=== PATIENT | female | born 1930 | race Caucasian/White ===

== ENCOUNTER 2017-04-17 08:51 | Inpatient (IN) | payer MEDICARE, BC ==
--- NOTE | 2017-04-17 08:58 | EDM.PDOC ---
ED HPI GENERAL MEDICAL PROBLEM - General Chief Complaint: General Stated Complaint: [facility] Time Seen by Provider: 04/17/17 08:54 - History of Present Illness INITIAL COMMENTS - FREE TEXT/NARRATIVE: 87-year-old female brought in to the emergency room with increased weakness. She was transported by EMS from the [facility]. Apparently over the last several weeks the patient's have problems with increased weakness. Was noted patient was treated for cough with Tessalon Perles and doxycycline on the of last month she was given a 10 day course of doxycycline she still has 9 capsules remaining. The patient cannot recall if she's had a chest x-ray done earlier today and she just got back from radiology. Patient denies any specific pain. She says she tries to take her medication as directed. Patient denies any pain at this time. She is not aware of any recent head injury. - Related Data Allergies Allergy/AdvReac Type Severity Reaction Status Date / Time No Known Allergies Allergy Verified 04/17/17 09:20 Home Meds: Home Meds Alendronate [Fosamax] 70 mg PO WEEKLY 04/17/17 [History] Potassium Chloride 10 meq PO DAILY 04/17/17 [History] Triamterene/Hydrochlorothiazid [Triamterene-HCTZ 37.5-25 MG] 1 tab PO DAILY 05/30 [History] Valsartan 80 mg PO DAILY 04/17/17 [History] amLODIPine [Norvasc] 10 mg PO DAILY 04/17/17 [History] atorvaSTATin [Lipitor] 20 mg PO DAILY 04/17/17 [History] ED ROS GENERAL - Review of Systems Review Of Systems: See Below Constitutional: Reports: No Symptoms HEENT: Reports: No Symptoms Respiratory: Reports: Cough. Denies: No Symptoms, Shortness of Breath, Hemoptysis Cardiovascular: Reports: No Symptoms GI/Abdominal: Reports: No Symptoms : Reports: No Symptoms Musculoskeletal: Reports: No Symptoms Skin: Reports: No Symptoms Neurological: Reports: No Symptoms Psychiatric: Reports: No Symptoms ED EXAM, GENERAL - Physical Exam Exam: See Below Exam Limited By: No Limitations General Appearance: Alert, No Apparent Distress Eye Exam: Bilateral Eye: Normal Inspection Ears: Normal External Exam, Normal Canal, Hearing Grossly Normal Nose: Normal Inspection, Normal Mucosa, No Blood Throat/Mouth: Normal Inspection, Normal Lips, Normal Gums, Normal Oropharynx, Normal Voice, No Airway Compromise Head: Atraumatic, Normocephalic Neck: Normal Inspection, Supple, Non-Tender, Full Range of Motion Respiratory/Chest: No Respiratory Distress, Lungs Clear, Normal Breath Sounds Cardiovascular: Normal Peripheral Pulses, Regular Rate, Rhythm, No Edema GI/Abdominal: Normal Bowel Sounds, Soft, Non-Tender, Other (Stool Hemoccult positive stool is soft with a maroon color) Extremities: Normal Inspection, Non-Tender Neurological: Alert, CN II-XII Intact, Normal Reflexes, No Motor/Sensory Deficits. No: Normal Cognition Psychiatric: Depressed Mood Skin Exam: Warm, Dry, Intact Lymphatic: No Adenopathy Course - Vital Signs Last Recorded V/S: Last Vital Signs Temp 36.6 C 04/17/17 09:01 Pulse 80 04/17/17 09:01 Resp 16 04/17/17 09:01 BP 113/64 04/17/17 09:01 Pulse Ox 97 04/17/17 09:01 - Orders/Labs/Meds Orders: Active Orders 24 hr Category Date Time Status EKG Documentation Completion [RC] STAT Care 04/17/17 08:56 Active Labs: Laboratory Tests 04/17/17 04/17/17 04/17/17 Range/Units 09:05 09:10 09:10 WBC 11.16 H (3.98-10.04) K/mm3 RBC 5.31 H (3.98-5.22) M/mm3 Hgb 15.6 (11.2-15.7) gm/L Hct 44.5 (34.1-44.9) % MCV 83.8 (79.4-94.8) fl MCH 29.4 (25.6-32.2) pg MCHC 35.1 (32.2-35.5) g/dl RDW Std Deviation 43.6 (36.4-46.3) fL Plt Count 262 (182-369) K/mm3 MPV 10.0 (9.4-12.3) fl Neutrophils % (Manual) 61 H (40-60) % Band Neutrophils % 0 (0-10) % Lymphocytes % (Manual) 28 (20-40) % Atypical Lymphs % 0 % Monocytes % (Manual) 11 H (2-10) % Eosinophils % (Manual) 0 L (0.7-5.8) % Basophils % (Manual) 0 L (0.1-1.2) Platelet Estimate Adequate RBC Morph Comment Normal PT (8.0-13.0) SECONDS INR APTT (22-36) SECONDS Sodium 131 L (136-145) mEq/L Potassium 3.8 (3.5-5.1) mEq/L Chloride 99 (98-107) mEq/L Carbon Dioxide 18 L (21-32) mEq/L Anion Gap 17.8 H (5-15) BUN 67 H (7-18) mg/dL Creatinine 2.1 H (0.55-1.02) mg/dL Est Cr Clr Drug Dosing 17.67 mL/min Estimated GFR (MDRD) 22 (>60) mL/min BUN/Creatinine Ratio 31.9 H (14-18) Glucose 138 H (83-115) mg/dL Calcium 10.0 (8.5-10.1) mg/dL Total Bilirubin 0.7 (0.2-1.0) mg/dL AST 27 (15-37) U/L ALT 27 (14-59) U/L Alkaline Phosphatase 77 (46-116) U/L NT-Pro-B Natriuret Pep (0-450) pg/mL Total Protein 8.5 H (6.4-8.2) g/dl Albumin 3.8 (3.4-5.0) g/dl Globulin 4.7 gm/dL Albumin/Globulin Ratio 0.8 L (1-2) TSH 3rd Generation 1.998 (0.358-3.74) uIU/mL Urine Color Yellow (Yellow) Urine Appearance Clear (Clear) Urine pH 6.0 (5.0-8.0) Ur Specific [place] 1.020 (1.005-1.030) Urine Protein Trace H (Negative) Urine Glucose (UA) Negative (Negative) Urine Ketones Trace H (Negative) Urine Occult Blood Negative (Negative) Urine Nitrite Negative (Negative) Urine Bilirubin 1+ H (Negative) Urine Urobilinogen 0.2 (0.2-1.0) Ur Leukocyte Esterase Negative (Negative) Urine RBC 0-5 (0-5) /hpf Urine WBC 0-5 (0-5) /hpf Ur Epithelial Cells 0-5 (0-5) /hpf Urine Bacteria Few (FEW) /hpf Hyaline Casts 0-5 (0-5) /lpf Urine Mucus Few (FEW) /hpf C.difficile [id number]-[id number] C. difficile Tox (PCR) 04/17/17 04/17/17 04/17/17 Range/Units 09:10 09:10 09:37 WBC (3.98-10.04) K/mm3 RBC (3.98-5.22) M/mm3 Hgb (11.2-15.7) gm/L Hct (34.1-44.9) % MCV (79.4-94.8) fl MCH (25.6-32.2) pg MCHC (32.2-35.5) g/dl RDW Std Deviation (36.4-46.3) fL Plt Count (182-369) K/mm3 MPV (9.4-12.3) fl Neutrophils % (Manual) (40-60) % Band Neutrophils % (0-10) % Lymphocytes % (Manual) (20-40) % Atypical Lymphs % % Monocytes % (Manual) (2-10) % Eosinophils % (Manual) (0.7-5.8) % Basophils % (Manual) (0.1-1.2) Platelet Estimate RBC Morph Comment PT 11.2 (8.0-13.0) SECONDS INR 1.03 APTT 30 (22-36) SECONDS Sodium (136-145) mEq/L Potassium (3.5-5.1) mEq/L Chloride (98-107) mEq/L Carbon Dioxide (21-32) mEq/L Anion Gap (5-15) BUN (7-18) mg/dL Creatinine (0.55-1.02) mg/dL Est Cr Clr Drug Dosing mL/min Estimated GFR (MDRD) (>60) mL/min BUN/Creatinine Ratio (14-18) Glucose (83-115) mg/dL Calcium (8.5-10.1) mg/dL Total Bilirubin (0.2-1.0) mg/dL AST (15-37) U/L ALT (14-59) U/L Alkaline Phosphatase (46-116) U/L NT-Pro-B Natriuret Pep 222 (0-450) pg/mL Total Protein (6.4-8.2) g/dl Albumin (3.4-5.0) g/dl Globulin gm/dL Albumin/Globulin Ratio (1-2) TSH 3rd Generation (0.358-3.74) uIU/mL Urine Color (Yellow) Urine Appearance (Clear) Urine pH (5.0-8.0) Ur Specific [place] (1.005-1.030) Urine Protein (Negative) Urine Glucose (UA) (Negative) Urine Ketones (Negative) Urine Occult Blood (Negative) Urine Nitrite (Negative) Urine Bilirubin (Negative) Urine Urobilinogen (0.2-1.0) Ur Leukocyte Esterase (Negative) Urine RBC (0-5) /hpf Urine WBC (0-5) /hpf Ur Epithelial Cells (0-5) /hpf Urine Bacteria (FEW) /hpf Hyaline Casts (0-5) /lpf Urine Mucus (FEW) /hpf C.difficile [id number] Presumptive negative C. difficile Tox (PCR) Negative - Re-Assessments/Exams Free Text/Narrative Re-Assessment/Exam: 04/17/17 11:34 CBC stable BUNs 61 creatinine 2.1 H&H stable and normal head CT unrevealing for acute change urinalysis negative for signs of infection She has heme positive stools and possibly developing a bleed I'm not sure this is explaining her change in mental status or possibly failure to thrive will discuss with our hospitalist anticipate inpatient treatment. Departure - Departure Time of Disposition: 11:47 Disposition: Admitted As Inpatient 66 Clinical Impression: Lower GI bleeding, Mental status change, Cough, Dehydration - Discharge Information Referrals: Lopez Sauceda MD [Primary Care Provider] - Forms: ED Department Discharge - My Orders Last 24 Hours: My Active Orders 04/17/17 08:56 EKG Documentation Completion [RC] STAT - Assessment/Plan Last 24 Hours: My Active Orders 04/17/17 08:56 EKG Documentation Completion [RC] STAT
--- NOTE | 2017-04-17 10:38 | CR ---
Chest: 2 views of the chest were obtained. Comparison: Prior chest x-ray of 07/02/11. Elevated left hemidiaphragm is seen which is a chronic finding. Slight scarring or atelectasis is noted within the lateral left costophrenic angle. Left perihilar markings are slightly increased which are believed to be chronic. Lungs otherwise are clear. Heart size is normal. Atherosclerotic calcification is noted within the thoracic aorta. Bony structures are osteopenic with mild scoliosis and kyphosis. Impression: 1. Incidental findings. Nothing acute is appreciated. Diagnostic code #2
--- NOTE | 2017-04-17 10:43 | CT ---
Head CT Technique: Multiple axial sections through the brain were obtained. Intravenous contrast was not utilized. Comparison: No prior intracranial imaging. Findings: Ventricles along with basal cisterns and sulci over convexities are moderately prominent. Diffuse diminished density is noted within the periventricular and subcortical white matter which is compatible with small vessel ischemic demyelination change. Calcification is seen along the interhemispheric falx which is incidental. No evidence of intracranial hemorrhage. No midline shift or mass effect is seen. Atherosclerotic calcification is noted within the carotid siphon. Bone window settings were reviewed which shows no acute calvarial abnormality. Visualized sinuses are clear. Impression: 1. Senescent change as noted above. 2. Nothing acute is identified on noncontrast head CT exam. Diagnostic code #2
[2017-04-17] MEDS ORDERED: Lactated Ringers 1,000 ML IV SCH (11:45)
[2017-04-17] MEDS ORDERED: Promethazine 6.25 MG in Sodium Chloride 0.9% 50 ML IV PRN (13:04)
[2017-04-17] MEDS ORDERED: Polyethylene Glycol 3350 Powder 17 GM Packet PO PRN (13:04)
[2017-04-17] MEDS ORDERED: Acetaminophen 325 MG Tab PO PRN (13:04)
[2017-04-17] MEDS ORDERED: Docusate Sodium 100 MG Cap PO PRN (13:04)
[2017-04-17] MEDS ORDERED: HYDROmorphone 1 MG/ML Syringe IVPUSH PRN (13:04)
[2017-04-17] MEDS ORDERED: Bisacodyl 5 MG Tab PO PRN (13:04)
[2017-04-17] MEDS ORDERED: Albuterol/Ipratropium 3.0-0.5 MG/3 ML Neb Soln NEB PRN (13:04)
[2017-04-17] MEDS ORDERED: LORazepam 2 MG/ML SDV IV PRN (13:04)
[2017-04-17] MEDS ORDERED: Ondansetron 4 MG/2 ML SDV IV PRN (13:04)
[2017-04-17] MEDS ORDERED: Acetaminophen/HYDROcodone 325-5 MG Tab PO PRN (13:04)
[2017-04-17] MEDS ORDERED: LORazepam 2 MG/ML SDV IVPUSH PRN (13:10)
[2017-04-17] MEDS ORDERED: Metoprolol Tartrate 5 MG/5 ML SDV IVPUSH PRN (13:10)
[2017-04-17] MEDS ORDERED: hydrALAZINE 20 MG/ML SDV IVPUSH PRN (13:10)
[2017-04-17] MEDS ORDERED: Non-Formulary Medication 1 Each (Alendronate 70 MG) PO SCH (13:15)
[2017-04-17] MEDS ORDERED: Thiamine 200 MG in Sodium Chloride 0.9% 100 ML IV ONE (13:17)
--- NOTE | 2017-04-17 13:52 | PCM.HP ---
H&P History of Present Illness - General Date of Service: 04/17/17 Admit Problem/Dx: Admission Diagnosis/Problem Admission Diagnosis/Problem GI bleed not requiring more than 4 units of blood in 24 hours, ICU, or surgery Source of Information: Patient, Old Records, Provider, RN Notes Reviewed History Limitations: Reports: Altered Mental Status - History of Present Illness Initial Comments - Free Text/Narative: This is an 87 yo elderly white female with past medical hx/o HTN, HLD, Osteoporosis and Chronic Hypokalemia who comes in for evaluation of increasing generalized weakness. Patient lives at [facility] and usually independent not receiving any assistance. Today, she was not on her baseline functional status and this morning, she asked [facility] for help so she can take her morning pills. She states "I'm so weak", "I can't" as noted on her chart. Patient was recently seen by her PCP and was diagnosed with presumptive cough/ bronchitis. She was given Doxy and Tessalon Perles but only took 1 pill of her 10 day course treatment. While in ED, she was observed confused and unable to recall recent events or memory. She was also found heme pos on stool after bowel movement. Patient carries no hx/o memory impairment or dementia. Her home medical records, revealed she was not on narcotics, sedatives or hypnotic drugs. Her initial work up shows a CBC remarkable for WBC of 11.16, RBC of 5.31, neutrophils of 61%, and monocytes of 11%. Her coagulation studies are all within normal limits. Her chemistry is remarkable for sodium of 131, carbon dioxide of 18, anion gap of 17.8, BUN of 67, creatinine of 2.1, glucose of 138, and total protein of 8.5. Liver enzymes and proBNP are within normal limits. TSH level is 1.99. Her UA is negative for urinary tract infection. Her chest x- ray and head CT scan both show no acute abnormal findings. Patient is being admitted for evaluation and management of generalized weakness and new onset of confusion. She is DNR/DNI. - Related Data Allergies/Adverse Reactions: Allergies Allergy/AdvReac Type Severity Reaction Status Date / Time No Known Allergies Allergy Verified 04/17/17 13:12 Home Medications: Home Meds Alendronate [Fosamax] 70 mg PO WEEKLY 04/17/17 [History] Benzonatate [Tessalon Perle] 200 mg PO TID PRN 04/17/17 [History] Doxycycline [Doxycycline Monohydrate] 100 mg PO BID 04/17/17 [History] Potassium Chloride 10 meq PO DAILY 04/17/17 [History] Triamterene/Hydrochlorothiazid [Triamterene-HCTZ 37.5-25 MG] 1 tab PO DAILY 05/30 [History] Valsartan 80 mg PO DAILY 04/17/17 [History] amLODIPine [Norvasc] 10 mg PO DAILY 04/17/17 [History] atorvaSTATin [Lipitor] 20 mg PO DAILY 04/17/17 [History] Past Medical History HEENT History: Reports: Impaired Vision Cardiovascular History: Reports: High Cholesterol, Hypertension 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 Denies: Fever, Chills, Malaise, Fatigue HEENT: Reports: No Symptoms Pulmonary: Reports: Cough. Denies: Shortness of Breath, Wheezing Cardiovascular: Denies: Chest Pain, Dyspnea on Exertion, Lightheadedness Gastrointestinal: Denies: Abdominal Pain, Decreased Appetite, Nausea, Vomiting Genitourinary: Reports: No Symptoms Musculoskeletal: Reports: No Symptoms Skin: Denies: Cyanosis, Mottled, Pallor, Diaphoresis, Erythema Psychiatric: Denies: Depression, Anxiety, Agitation, Hallucinations (Auditory) Neurological: Denies: Confusion, Difficulty Walking, Weakness Hematologic/Lymphatic: Denies: Easy Bleeding Immunologic: Reports: No Symptoms Exam - Exam Exam: See Below - Vital Signs Vital Signs: Last Vital Signs Temp 36.6 C 04/17/17 09:01 Pulse 80 04/17/17 09:01 Resp 16 04/17/17 09:01 BP 113/64 04/17/17 09:01 Pulse Ox 97 04/17/17 09:01 Weight: 77.111 kg - Exam General: Alert, Cooperative, Mild Distress HEENT: Conjunctiva Clear, EACs Clear, EOMI, Hearing Intact, Nares Patent, Normal Nasal Septum, Posterior Pharynx Clear, Pupils Equal, Pupils Reactive, TMs Clear. No: Mucosa Moist & Deepstep Neck: Supple, Trachea Midline, Full Range of Motion. No: JVD Lungs: Clear to Auscultation, Normal Respiratory Effort Cardiovascular: Regular Rate, Regular Rhythm GI/Abdominal Exam: Normal Bowel Sounds, Soft, Non-Tender, No Organomegaly, No Distention, No Abnormal Bruit (Female) Exam: Deferred Rectal (Female) Exam: Deferred Back Exam: Normal Inspection, Decreased Range of Motion Extremities: Normal Inspection, Normal Range of Motion, Non-Tender, No Pedal Edema, Normal Capillary Refill, Other (hyperpigmentation on distal left lower extremity) Peripheral Pulses: 2+: Posterior Tibial (L), Posterior Tibial (R), Dorsalis Pedis (L), Dorsalis Pedis (R) Skin: Warm, Dry, Intact Neuro Extensive - Mental Status: Normal Cognition, Memory Intact, Disorientation to Time, Memory Loss-Recent Events, Nl Response to Commands. No : Disorientation to Person, Disorientation to Place - Patient Data Result Diagrams: 04/17/17 17:00 04/17/17 17:00 *Q Meaningful Use (ADM) - VTE *Q VTE Criteria *Q: - Stroke *Q Stroke Criteria *Q: - AMI *Q AMI Criteria *Q: Problem List Initiated/Reviewed/Updated: Yes Orders Last 24hrs: Active Orders 24 hr Category Date Time Status Patient Status [ADT] Stat ADT 04/17/17 13:44 Active Antiembolic Devices [RC] PER UNIT ROUTINE Care 04/17/17 13:05 Active Height and Weight [RC] DAILY Care 04/17/17 13:04 Active Intake and Output [RC] QSHIFT Care 04/17/17 13:05 Active Oxygen Therapy [RC] PRN Care 04/17/17 13:04 Active RT Aerosol Therapy [RC] .PRN Care 04/17/17 13:06 Active Up With Assistance [RC] ASDIRECTED Care 04/17/17 13:04 Active Up ad [place] [RC] ASDIRECTED Care 04/17/17 13:04 Active VTE/DVT Education [RC] PER UNIT ROUTINE Care 04/17/17 13:04 Active Vital Signs [RC] Q4H Care 04/17/17 13:04 Active Consult to Case Management [CONS] Routine Cons 04/17/17 13:07 Active Consult to Corn Grower [CONS] Routine Cons 04/17/17 13:07 Active Consult to Spiritual Care [CONS] Routine Cons 04/17/17 13:07 Active OT Evaluation and Treatment [CONS] Routine Cons 04/17/17 13:07 Active PT Evaluation and Treatment [CONS] Routine Cons 04/17/17 13:07 Active SHIPFITTER APPRENTICE Evaluation and Treatment [CONS] Routine Cons 04/17/17 13:07 Active Regular Diet [DIET] Diet 04/17/17 Lunch Active BASIC METABOLIC PANEL,BMP [CHEM] AM Lab 04/18/17 05:11 Ordered BASIC METABOLIC PANEL,BMP [CHEM] AM Lab 04/19/17 05:11 Ordered BASIC METABOLIC PANEL,BMP [CHEM] AM Lab 04/20/17 05:11 Ordered BMP [BASIC METABOLIC PANEL,BMP] [CHEM] Routine Lab 04/17/17 17:00 Ordered CBC WITH AUTO DIFF [HEME] AM Lab 04/18/17 05:11 Ordered CBC WITH AUTO DIFF [HEME] AM Lab 04/19/17 05:11 Ordered CBC WITH AUTO DIFF [HEME] AM Lab 04/20/17 05:11 Ordered CRP [C-REACTIVE PROTEIN] [CHEM] Urgent Lab 04/17/17 09:10 Received DRUG SCREEN, URINE [URCHEM] Stat Lab 04/17/17 13:11 Uncollected ESR [SEDIMENTATION RATE AUTO] [HEME] Urgent Lab 04/17/17 09:10 Received FE, TIBC, TRANSFERRIN, FE SAT [CHEM] Stat Lab 04/17/17 09:10 Received FOLIC ACID [CHEM] Stat Lab 04/17/17 09:10 Received HEMOGLOBIN/HEMATOCRIT,HH [HEME] Routine Lab 04/17/17 17:00 Ordered MAGNESIUM [CHEM] AM Lab 04/18/17 05:11 Ordered MAGNESIUM [CHEM] AM Lab 04/19/17 05:11 Ordered MAGNESIUM [CHEM] AM Lab 04/20/17 05:11 Ordered RAPID PLASMA REAGIN,RPR [CHEM] Stat Lab 04/17/17 09:10 Received T4 FREE [CHEM] Urgent Lab 04/17/17 09:10 Received VITAMIN B12 [CHEM] Stat Lab 04/17/17 09:10 Received VITAMIN D 25-HYROXY (D2, D3) [REF] Stat Lab 04/17/17 09:10 Received Acetaminophen [Tylenol] Med 04/17/17 13:04 Active 650 mg PO Q4H PRN Acetaminophen/HYDROcodone [Kathryn 325-5 MG] Med 04/17/17 13:04 Active 1 tab PO Q4H PRN Albuterol/Ipratropium [DuoNeb 3.0-0.5 MG/3 ML] Med 04/17/17 13:04 Active 3 ml NEB Q4H PRN Bisacodyl [Dulcolax] Med 04/17/17 13:04 Active 5 mg PO DAILY PRN Docusate Sodium [Colace] Med 04/17/17 13:04 Active 100 mg PO BID PRN Docusate Sodium/Sennosides [Senna Plus] Med 04/17/17 13:04 Active 1 tab PO BID PRN HYDROmorphone [Dilaudid] Med 04/17/17 13:04 Active 0.25 mg IVPUSH Q2H PRN LORazepam [Ativan] Med 04/17/17 13:04 Active 0.25 mg IV Q6H PRN LORazepam [Ativan] Med 04/17/17 13:10 Active 2 mg IVPUSH Q4H PRN Magnesium Rep Pharmacy to Dose [Pharmacy to Dose - Med 04/17/17 13:15 Pending Magnesium Replacement] 1 dose .XX ASDIRECTED Metoprolol Tartrate [Lopressor] Med 04/17/17 13:10 Active 5 mg IVPUSH Q4H PRN Ondansetron [Zofran] Med 04/17/17 13:04 Active 4 mg IV Q6H PRN Polyethylene Glycol 3350 [MiraLAX] Med 04/17/17 13:04 Active 17 gm PO DAILY PRN Potassium Chloride [Klor-Con M20] Med 04/17/17 13:30 Active 40 meq PO Q4H Potassium Rep Pharmacy to Dose [Pharmacy to Dose - Med 04/17/17 13:15 Pending Potassium Replacement] 1 dose .XX ASDIRECTED Promethazine [Phenergan] 6.25 mg Med 04/17/17 13:04 Active Sodium Chloride 0.9% [Normal Saline] 50 ml IV Q6H Temazepam [Restoril] Med 04/17/17 13:04 Active 7.5 mg PO BEDTIME PRN Thiamine [Vitamin B-1] Med 04/18/17 21:00 Active 100 mg PO BEDTIME amLODIPine [Norvasc] Med 04/18/17 09:00 Active 10 mg PO DAILY hydrALAZINE [Apresoline] Med 04/17/17 13:10 Active 10 mg IVPUSH Q4H PRN Precautions [COMM] Routine Oth 04/17/17 13:11 Ordered Sequential Compression Device [OM.PC] Per Unit Routine Oth 04/17/17 13:05 Ordered Resuscitation Status Routine Resus Stat 04/17/17 13:04 Ordered Medication Orders Acetaminophen (Tylenol) 650 mg PO Q4H PRN PRN Reason: Pain (Mild 1-3)/fever Hydrocodone Bitart/Acetaminophen (Kathryn 325-5 Mg) 1 tab PO Q4H PRN PRN Reason: Pain (moderate 4-6) Albuterol/Ipratropium (Duoneb 3.0-0.5 Mg/3 Ml) 3 ml NEB Q4H PRN PRN Reason: Shortness Of Breath/wheezing Amlodipine Besylate (Norvasc) 10 mg PO DAILY SHARON Bisacodyl (Dulcolax) 5 mg PO DAILY PRN PRN Reason: Constipation Docusate Sodium (Colace) 100 mg PO BID PRN PRN Reason: Constipation Hydralazine HCl (Apresoline) 10 mg IVPUSH Q4H PRN PRN Reason: Hypertension Hydromorphone HCl (Dilaudid) 0.25 mg IVPUSH Q2H PRN PRN Reason: Pain (severe 7-10) Lactated Ringer's (Ringers, Lactated) 1,000 mls @ 100 mls/hr IV ASDIRECTED [facility] Last Admin: 04/17/17 12:16 Dose: 100 mls/hr Promethazine HCl 6.25 mg/ (Sodium Chloride) 50.25 mls @ 100 mls/hr IV Q6H PRN PRN Reason: Nausea/Vomiting Lorazepam (Ativan) 0.25 mg IV Q6H PRN PRN Reason: Anxiety Lorazepam (Ativan) 2 mg IVPUSH Q4H PRN PRN Reason: Seizures Magnesium Sulfate (Pharmacy To Dose - Magnesium Replacement) 1 dose .XX ASDIRECTED [facility] Metoprolol Tartrate (Lopressor) 5 mg IVPUSH Q4H PRN PRN Reason: Tachycardia Ondansetron HCl (Zofran) 4 mg IV Q6H PRN PRN Reason: Nausea/Vomiting Polyethylene Glycol (Miralax) 17 gm PO DAILY PRN PRN Reason: Constipation Potassium Chloride (Pharmacy To Dose - Potassium Replacement) 1 dose .XX ASDIRECTED [facility] Potassium Chloride (Klor-Con M20) 40 meq PO Q4H [facility] Stop: 04/17/17 17:31 Senna/Docusate Sodium (Senna Plus) 1 tab PO BID PRN PRN Reason: Constipation Temazepam (Restoril) 7.5 mg PO BEDTIME PRN PRN Reason: Sleep Thiamine HCl (Vitamin B-1) 100 mg PO BEDTIME SHARON Assessment/Plan Comment:: Assessment/Plan: Acute: Probable Failure To Thrive - Recent URI/Bronchitis - Decreased Appetite and Questionable New onset of Confusion/Memory Impairment - Supportive Care Generalized Weakness - Started on 03-26-17 - Was seen by PCP on treated for cough/bronchitis on the last month ( was given Doxycycline and Tessalon Perles) - Usually independent not receiving any assistance - She states "I'm so weak" - PT/OT eval - Fall precautions - Vit D level, FT4, ESR and CRP Mild Confusion/MS - No baseline cognitive dysfunction - AA and Ox2 only - Unable to recall recent events while in being evaluated in ED - UA negative - CXR and Head CT scan: both show no acute abnormal findings - Folic Acid, Vit B12, RPR, and Vit D level - UDS - TSH is normal - SHIPFITTER APPRENTICE for cognitive eval - Thiamin 200 mg IV x1 and then 100 mg po daily in AM Hemocult Pos on - Hgb is 16.5 - No hx/o Diverticulosis or Hemorrhoids - Heme stool pos in ED - C. Diff test-negative - Repeat H/H at 1700 today - Iron panel - She is clinically and hemodynamically stable Dehydration - Lips chapped and poor ski turgor - Currently receiving IVFs - CR is 2.1 no baseline level for comparison - Monitor renal function Mild Hyponatremia - Na 131 - 2/2 HCTZ use - Hold off medications - Currently receiving IVFs - Monitor ALEJA vs CKD - No baseline renal level for comparison - Suspect CKD - BUN 67/Cr 2.1; AG is 17.8 - IVF fluids - Hold off most BP meds - Monitor renal function Chronic: HTN HLD Osteoporosis Hypokalemia Renal Insufficiency Carotid Atherosclerosis Plan: Admit to the floor Resume Home Meds: Tessalon Perles, Fosamax and Norvasc Routine AM Labs PT/OT consult SHIPFITTER APPRENTICE for Cognitive eval Fall Precautions SW/CM for d/c planning Code Status: DNR/DNI Additional orders as above
[2017-04-17] MEDS: Potassium Chloride 20 MEQ Tab.ER PO SCH ×2 (17:05→19:55)
[2017-04-17] MEDS ORDERED: Benzonatate 100 MG Cap PO PRN (22:38)
[2017-04-17] MEDS: Temazepam 7.5 MG Cap PO PRN (22:52)
--- NOTE | 2017-04-18 00:13 | PCM.PN ---
- General Info Date of Service: 04/18/17 Admission Dx/Problem (Free Text): Admission Diagnosis/Problem Admission Diagnosis/Problem GI bleed not requiring more than 4 units of blood in 24 hours, ICU, or surgery Subjective Update: Follow Up Functional Status: Reports: Ambulating. Denies: Pain Controlled, Urinating, New Symptoms - Review of Systems General: Reports: Appetite. Denies: Fever, Weakness, Fatigue, Malaise, Chills HEENT: Reports: No Symptoms Pulmonary: Denies: Shortness of Breath Cardiovascular: Denies: Chest Pain, Palpitations, Dyspnea on Exertion Gastrointestinal: Reports: Flatus. Denies: Abdominal Pain, Constipation, Diarrhea, Difficulty Swallowing, Hematochezia, Melena, Nausea, Vomiting Genitourinary: Reports: No Symptoms Musculoskeletal: Reports: No Symptoms Skin: Denies: Cyanosis, Mottled, Pallor, Diaphoresis, Bruising, Rash Neurological: Reports: Weakness. Denies: Confusion, Pre-Existing Deficit, Difficulty Walking, Gait Disturbance Psychiatric: Denies: Depression, Anxiety, Agitation, Hallucinations, Suicidal Ideation Systems Review Comment:: No significant overnight or acute issues. She feels about the same as yesterday. She has no appetite. Day nurse reports, she gets nauseous or gags if she sees food. Her CBC is unremarkable. Her sodium level is improving but her Mg this level this morning is slightly low. She has no other complaints. - Patient Data Vitals - Most Recent: Last Vital Signs Temp 36.4 C 04/17/17 23:51 Pulse 72 04/17/17 23:51 Resp 16 04/17/17 23:51 BP 133/89 04/17/17 23:51 Pulse Ox 99 04/17/17 23:51 Weight - Most Recent: 77.111 kg I&O - Last 24 Hours: Intake & Output 04/17/17 04/17/17 04/18/17 14:59 22:59 06:59 Intake Total 300 Output Total 100 Balance 200 Lab Results Last 24 Hours: Laboratory Results - last 24 hr 04/17/17 04/17/17 04/17/17 Range/Units 14:00 17:00 17:00 Hgb 15.2 (11.2-15.7) gm/L Hct 43.7 (34.1-44.9) % Sodium 135 L (136-145) mEq/L Potassium 3.8 (3.5-5.1) mEq/L Chloride 101 (98-107) mEq/L Carbon Dioxide 18 L (21-32) mEq/L Anion Gap 19.8 H (5-15) BUN 64 H (7-18) mg/dL Creatinine 2.1 H (0.55-1.02) mg/dL Est Cr Clr Drug Dosing 17.67 mL/min Estimated GFR (MDRD) 22 (>60) mL/min BUN/Creatinine Ratio 30.5 H (14-18) Glucose 123 H (83-115) mg/dL Calcium 10.0 (8.5-10.1) mg/dL Urine Opiates Screen (NEGATIVE) Ur Buprenorphine Scrn (NEGATIVE) Ur Oxycodone Screen (NEGATIVE) Urine Methadone Screen (NEGATIVE) Ur Propoxyphene Screen (NEGATIVE) Ur Barbiturates Screen (NEGATIVE) Ur Tricyclics Screen (NEGATIVE) Ur Phencyclidine Scrn (NEGATIVE) Ur Amphetamine Screen (NEGATIVE) U Methamphetamines Scrn (NEGATIVE) U Benzodiazepines Scrn (NEGATIVE) U Cocaine Metab Screen (NEGATIVE) U Marijuana (THC) Screen (NEGATIVE) MRSA (PCR) Negative 04/17/17 Range/Units 17:20 Hgb (11.2-15.7) gm/L Hct (34.1-44.9) % Sodium (136-145) mEq/L Potassium (3.5-5.1) mEq/L Chloride (98-107) mEq/L Carbon Dioxide (21-32) mEq/L Anion Gap (5-15) BUN (7-18) mg/dL Creatinine (0.55-1.02) mg/dL Est Cr Clr Drug Dosing mL/min Estimated GFR (MDRD) (>60) mL/min BUN/Creatinine Ratio (14-18) Glucose (83-115) mg/dL Calcium (8.5-10.1) mg/dL Urine Opiates Screen Negative (NEGATIVE) Ur Buprenorphine Scrn Negative (NEGATIVE) Ur Oxycodone Screen Negative (NEGATIVE) Urine Methadone Screen Negative (NEGATIVE) Ur Propoxyphene Screen Negative (NEGATIVE) Ur Barbiturates Screen Negative (NEGATIVE) Ur Tricyclics Screen Negative (NEGATIVE) Ur Phencyclidine Scrn Negative (NEGATIVE) Ur Amphetamine Screen Negative (NEGATIVE) U Methamphetamines Scrn Negative (NEGATIVE) U Benzodiazepines Scrn Negative (NEGATIVE) U Cocaine Metab Screen Negative (NEGATIVE) U Marijuana (THC) Screen Negative (NEGATIVE) MRSA (PCR) Med Orders - Current: Current Medications Acetaminophen (Tylenol) 650 mg PO Q4H PRN PRN Reason: Pain (Mild 1-3)/fever Hydrocodone Bitart/Acetaminophen ([place] 325-5 Mg) 1 tab PO Q4H PRN PRN Reason: Pain (moderate 4-6) Albuterol/Ipratropium (Duoneb 3.0-0.5 Mg/3 Ml) 3 ml NEB Q4H PRN PRN Reason: Shortness Of Breath/wheezing Amlodipine Besylate (Norvasc) 10 mg PO DAILY [facility] Benzonatate (Tessalon Perles) 200 mg PO TID PRN PRN Reason: Cough Last Admin: 04/17/17 22:51 Dose: 200 mg Bisacodyl (Dulcolax) 5 mg PO DAILY PRN PRN Reason: Constipation Docusate Sodium (Colace) 100 mg PO BID PRN PRN Reason: Constipation Hydralazine HCl (Apresoline) 10 mg IVPUSH Q4H PRN PRN Reason: Hypertension Hydromorphone HCl (Dilaudid) 0.25 mg IVPUSH Q2H PRN PRN Reason: Pain (severe 7-10) Promethazine HCl 6.25 mg/ (Sodium Chloride) 50.25 mls @ 100 mls/hr IV Q6H PRN PRN Reason: Nausea/Vomiting Lorazepam (Ativan) 0.25 mg IV Q6H PRN PRN Reason: Anxiety Lorazepam (Ativan) 2 mg IVPUSH Q4H PRN PRN Reason: Seizures Magnesium Sulfate (Pharmacy To Dose - Magnesium Replacement) 1 dose .XX ASDIRECTED [facility] Metoprolol Tartrate (Lopressor) 5 mg IVPUSH Q4H PRN PRN Reason: Tachycardia Ondansetron HCl (Zofran) 4 mg IV Q6H PRN PRN Reason: Nausea/Vomiting Polyethylene Glycol (Miralax) 17 gm PO DAILY PRN PRN Reason: Constipation Potassium Chloride (Pharmacy To Dose - Potassium Replacement) 1 dose .XX ASDIRECTED [facility] Senna/Docusate Sodium (Senna Plus) 1 tab PO BID PRN PRN Reason: Constipation Temazepam (Restoril) 7.5 mg PO BEDTIME PRN PRN Reason: Sleep Last Admin: 04/17/17 22:52 Dose: 7.5 mg Thiamine HCl (Vitamin B-1) 100 mg PO BEDTIME [facility] Discontinued Medications Lactated Ringer's (Ringers, Lactated) 1,000 mls @ 100 mls/hr IV ASDIRECTED [facility] Last Admin: 04/17/17 12:16 Dose: 100 mls/hr Thiamine HCl 200 mg/ Sodium (Chloride) 102 mls @ 204 mls/hr IV ONETIME ONE Stop: 04/17/17 13:18 Last Admin: 04/17/17 17:04 Dose: 204 mls/hr Non-Formulary Medication (Alendronate) 70 mg PO WEEKLY [facility] Potassium Chloride (Klor-Con M20) 40 meq PO Q4H [facility] Stop: 04/17/17 17:31 Last Admin: 04/17/17 19:55 Dose: 40 meq - Exam General: Alert, Cooperative, No Acute Distress HEENT: Pupils Equal, Pupils Reactive, EOMI, Mucous Membr. Moist/[place] Neck: Supple, Trachea Midline, No JVD Lungs: Clear to Auscultation, Normal Respiratory Effort Cardiovascular: Regular Rate, Regular Rhythm GI/Abdominal Exam: Normal Bowel Sounds, Soft, Non-Tender, No Organomegaly, No Distention, No Abnormal Bruit, No Mass (Female) Exam: Deferred Back Exam: Normal Inspection, Decreased Range of Motion Extremities: Normal Inspection, Normal Range of Motion, Non-Tender, No Pedal Edema, Normal Capillary Refill Peripheral Pulses: 2+: Dorsalis Pedis (L), Dorsalis Pedis (R) Skin: Warm, Dry, Intact Neurological: No New Focal Deficit Psy/Mental Status: Alert, Normal Affect, Normal Mood. No: Depressed, Agitated, Suicidal Ideation, Homicidal Ideation, Hallucinations, Withdrawal Symptoms - Problem List Review Problem List Initiated/Reviewed/Updated: Yes - My Orders Last 24 Hours: My Active Orders 04/17/17 17:00 RAPID PLASMA REAGIN,RPR [CHEM] Routine 04/17/17 22:38 Benzonatate [Tessalon Perles] 200 mg PO TID PRN 04/18/17 05:11 CRP [C-REACTIVE PROTEIN] [CHEM] Routine - Plan Plan:: Assessment/Plan: Acute: Probable Failure To Thrive - Recent URI/Bronchitis - Decreased Appetite and Questionable New onset of Confusion/Memory Impairment - Head CT scan shows no acute stroke - Supportive Care - Will start appetite stimulants Generalized Weakness, Unchanged - Started on 03-26-17 - Was seen by PCP on treated for cough/bronchitis on the last month ( was given Doxycycline and Tessalon Perles) - Usually independent not receiving any assistance - She states "I'm so weak" - Continue PT/OT - Fall precautions - Vit D level pending - TSH and CRP -normal; FT4 levle cancelled--> will re-order for am labs - ESR minimally elevated Mild Confusion/MS, Improved - No baseline cognitive dysfunction - AA and Ox2 only - Unable to recall recent events while in being evaluated in ED - UA negative - CXR and Head CT scan: both show no acute abnormal findings - Folic Acid and Vit B12 normal - RPR is a send out - Vit D level pending - UDS negative - TSH is normal - CANINE DEPUTY for cognitive eval - Continue Thiamin 100 mg po daily Hemocult Pos on - Hgb is 16.5--> 15.2 --> 14 - No hx/o Diverticulosis or Hemorrhoids - Heme stool pos in ED; no reports of recurrent GI bleed - C. Diff test-negative - Repeat H/H at 1700 today - Iron panel: only shows low transferrin level (liver function is normal; CBC is normal; > other anemia) - She is clinically and hemodynamically stable Mild Hyponatremia, Improving - Na 131--> 135 - 2/2 HCTZ use - Hold off medications - Currently receiving IVFs - Monitor ALEJA vs CKD, Stable - No baseline renal level for comparison - Suspect CKD Stage 4; GFR stable - BUN 67/Cr 2.1--> 52/1.8; AG is 17.8--> 17 - IVF fluids - Hold off most BP meds - Continue to monitor renal function Mild Hyponatremia - Mg level is 1.7 - 2/2 inadequate intake - Replete and monitor Resolved: S/p Dehydration - Lips chapped and poor ski turgor - Currently receiving IVFs - CR is 2.1 no baseline level for comparison; now 1.8 - Monitor renal function Chronic: HTN HLD Osteoporosis Hypokalemia Renal Insufficiency Carotid Atherosclerosis Plan: She is clinically stable Continue current treatment Routine AM Labs Continue PT/OT consult CANINE DEPUTY for Cognitive eval Dietary consult for appropriate diet Fall Precautions SW/CM for d/c planning Code Status: DNR/DNI Additional orders as above
[2017-04-18] MEDS: amLODIPine 10 MG Tab PO SCH (09:35)
[2017-04-18] MEDS ORDERED: Magnesium Oxide 400 MG Tab PO ONE (10:30)
[2017-04-18] MEDS ORDERED: Scopolamine 1 MG Transdermal Patch TRDERM STA (15:47)
[2017-04-18] MEDS ORDERED: Megestrol 40 MG Tab PO ONE (17:00)
[2017-04-18] MEDS ORDERED: Megestrol Susp 40 MG/ML 10 ML UD Cup PO ONE (18:15)
[2017-04-18] MEDS: Dextrose 5%-0.9% NaCl 1,000 ML IV SCH (18:39)
[2017-04-18] MEDS: Thiamine 100 MG Tab PO SCH (22:15)
[2017-04-19] MEDS: Dextrose 5%-0.9% NaCl 1,000 ML IV SCH ×2 (04:39→14:49)
--- NOTE | 2017-04-19 07:59 | PCM.PN ---
- General Info Date of Service: 04/19/17 Admission Dx/Problem (Free Text): Admission Diagnosis/Problem Admission Diagnosis/Problem GI bleed not requiring more than 4 units of blood in 24 hours, ICU, or surgery Subjective Update: Follow Up Functional Status: Reports: Pain Controlled, Urinating. Denies: Tolerating Diet , New Symptoms - Review of Systems General: Reports: Appetite. Denies: Fever, Weakness, Fatigue, Malaise, Chills HEENT: Reports: No Symptoms Pulmonary: Denies: Shortness of Breath Cardiovascular: Denies: Chest Pain Gastrointestinal: Reports: Decreased Appetite, Flatus. Denies: Abdominal Pain, Constipation, Diarrhea, Difficulty Swallowing, Hematochezia, Melena, Nausea, Vomiting Genitourinary: Reports: No Symptoms Musculoskeletal: Reports: No Symptoms Skin: Denies: Cyanosis, Jaundice, Mottled, Pallor, Diaphoresis, Pruritis, Rash Neurological: Denies: Confusion, Difficulty Walking, Weakness, Gait Disturbance Psychiatric: Denies: Depression, Anxiety, Agitation, Hallucinations Systems Review Comment:: No overnight or acute issues. She is essentially the same. She feels vague: neither weak/tired or feel good/great. Her remains w/o appetite. She has no other complaints. - Patient Data Vitals - Most Recent: Last Vital Signs Temp 36.7 C 04/19/17 03:50 Pulse 56 L 04/19/17 03:50 Resp 16 04/19/17 03:50 BP 101/51 L 04/19/17 03:50 Pulse Ox 98 04/19/17 03:50 Weight - Most Recent: 74.616 kg I&O - Last 24 Hours: Intake & Output 04/18/17 04/19/17 04/19/17 22:59 06:59 14:59 Intake Total 520 200 Output Total 600 400 Balance -80 -200 Lab Results Last 24 Hours: Laboratory Results - last 24 hr 04/19/17 04/19/17 Range/Units 05:35 05:35 WBC 7.45 (3.98-10.04) K/mm3 RBC 4.67 (3.98-5.22) M/mm3 Hgb 13.6 (11.2-15.7) gm/L Hct 40.1 (34.1-44.9) % MCV 85.9 (79.4-94.8) fl MCH 29.1 (25.6-32.2) pg MCHC 33.9 (32.2-35.5) g/dl RDW Std Deviation 44.9 (36.4-46.3) fL Plt Count 232 (182-369) K/mm3 MPV 10.1 (9.4-12.3) fl Neut % (Auto) 54.6 (34.0-71.1) % Lymph % (Auto) 28.5 (19.3-51.7) % Real % (Auto) 12.5 (4.7-12.5) % Eos % (Auto) 3.4 (0.7-5.8) Baso % (Auto) 0.5 (0.1-1.2) % Neut # (Auto) 4.07 (1.56-6.13) K/mm3 Lymph # (Auto) 2.12 (1.18-3.74) K/mm3 Real # (Auto) 0.93 H (0.24-0.36) K/mm3 Eos # (Auto) 0.25 (0.04-0.36) K/mm3 Baso # (Auto) 0.04 (0.01-0.08) K/mm3 Sodium 137 (136-145) mEq/L Potassium 3.4 L (3.5-5.1) mEq/L Chloride 105 (98-107) mEq/L Carbon Dioxide 22 (21-32) mEq/L Anion Gap 13.4 (5-15) BUN 43 H (7-18) mg/dL Creatinine 1.7 H (0.55-1.02) mg/dL Est Cr Clr Drug Dosing 21.83 mL/min Estimated GFR (MDRD) 28 (>60) mL/min BUN/Creatinine Ratio 25.3 H (14-18) Glucose 131 H (83-115) mg/dL Calcium 8.9 (8.5-10.1) mg/dL Magnesium 1.8 (1.8-2.4) mg/dl Free T4 1.62 H (0.76-1.46) ng/dL Med Orders - Current: Current Medications Acetaminophen (Tylenol) 650 mg PO Q4H PRN PRN Reason: Pain (Mild 1-3)/fever Hydrocodone Bitart/Acetaminophen ([place] 325-5 Mg) 1 tab PO Q4H PRN PRN Reason: Pain (moderate 4-6) Albuterol/Ipratropium (Duoneb 3.0-0.5 Mg/3 Ml) 3 ml NEB Q4H PRN PRN Reason: Shortness Of Breath/wheezing Amlodipine Besylate (Norvasc) 10 mg PO DAILY [facility] Last Admin: 04/18/17 09:35 Dose: 10 mg Benzonatate (Tessalon Perles) 200 mg PO TID PRN PRN Reason: Cough Last Admin: 04/17/17 22:51 Dose: 200 mg Bisacodyl (Dulcolax) 5 mg PO DAILY PRN PRN Reason: Constipation Docusate Sodium (Colace) 100 mg PO BID PRN PRN Reason: Constipation Dronabinol (Marinol) 2.5 mg PO TIDAC [facility] Hydralazine HCl (Apresoline) 10 mg IVPUSH Q4H PRN PRN Reason: Hypertension Hydromorphone HCl (Dilaudid) 0.25 mg IVPUSH Q2H PRN PRN Reason: Pain (severe 7-10) Promethazine HCl 6.25 mg/ (Sodium Chloride) 50.25 mls @ 100 mls/hr IV Q6H PRN PRN Reason: Nausea/Vomiting Dextrose/Sodium Chloride (Dextrose 5%-Normal Saline) 1,000 mls @ 100 mls/hr IV ASDIRECTED [facility] Last Admin: 04/19/17 04:39 Dose: 100 mls/hr Lorazepam (Ativan) 0.25 mg IV Q6H PRN PRN Reason: Anxiety Lorazepam (Ativan) 2 mg IVPUSH Q4H PRN PRN Reason: Seizures Magnesium Sulfate (Pharmacy To Dose - Magnesium Replacement) 1 dose .XX ASDIRECTED [facility] Metoprolol Tartrate (Lopressor) 5 mg IVPUSH Q4H PRN PRN Reason: Tachycardia Ondansetron HCl (Zofran) 4 mg IV Q6H PRN PRN Reason: Nausea/Vomiting Last Admin: 04/18/17 08:08 Dose: 4 mg Polyethylene Glycol (Miralax) 17 gm PO DAILY PRN PRN Reason: Constipation Potassium Chloride (Pharmacy To Dose - Potassium Replacement) 1 dose .XX ASDIRECTED [facility] Potassium Chloride (Klor-Con M20) 40 meq PO ONETIME ONE Stop: 04/19/17 08:01 Senna/Docusate Sodium (Senna Plus) 1 tab PO BID PRN PRN Reason: Constipation Temazepam (Restoril) 7.5 mg PO BEDTIME PRN PRN Reason: Sleep Last Admin: 04/17/17 22:52 Dose: 7.5 mg Thiamine HCl (Vitamin B-1) 100 mg PO BEDTIME [facility] Last Admin: 04/18/17 22:15 Dose: 100 mg Discontinued Medications Lactated Ringer's (Ringers, Lactated) 1,000 mls @ 100 mls/hr IV ASDIRECTED [facility] Last Admin: 04/17/17 12:16 Dose: 100 mls/hr Thiamine HCl 200 mg/ Sodium (Chloride) 102 mls @ 204 mls/hr IV ONETIME ONE Stop: 04/17/17 13:18 Last Admin: 04/17/17 17:04 Dose: 204 mls/hr Magnesium Oxide (Magnesium Oxide) 400 mg PO ONETIME ONE Stop: 04/18/17 10:31 Last Admin: 04/18/17 11:56 Dose: 400 mg Megestrol Acetate (Megace) 40 mg PO ONETIME ONE Stop: 04/18/17 17:01 Last Admin: 04/18/17 18:41 Dose: Not Given Megestrol Acetate (Megace 40 Mg/Ml Susp) 40 mg PO ONETIME ONE Stop: 04/18/17 18:16 Last Admin: 04/18/17 18:40 Dose: 40 mg Non-Formulary Medication (Alendronate) 70 mg PO WEEKLY [facility] Potassium Chloride (Klor-Con M20) 40 meq PO Q4H [facility] Stop: 04/17/17 17:31 Last Admin: 04/17/17 19:55 Dose: 40 meq Scopolamine (Scopolamine) 1 each TRDERM NOW STA Stop: 04/18/17 15:48 Last Admin: 04/18/17 15:57 Dose: 1 each - Exam General: Alert, Oriented HEENT: Pupils Equal, Pupils Reactive, EOMI, Mucous Membr. Moist/[place] Neck: Supple, Trachea Midline, No JVD, No Thyromegaly Lungs: Normal Respiratory Effort, Decreased Breath Sounds Cardiovascular: Regular Rate, Regular Rhythm GI/Abdominal Exam: Normal Bowel Sounds, Soft, Non-Tender, No Organomegaly, No Distention, No Abnormal Bruit (Female) Exam: Deferred Back Exam: Normal Inspection, Decreased Range of Motion Extremities: Normal Inspection, Normal Range of Motion, Non-Tender, No Pedal Edema, Normal Capillary Refill Peripheral Pulses: 2+: Dorsalis Pedis (L), Dorsalis Pedis (R) Skin: Warm, Dry, Intact Neurological: No New Focal Deficit Psy/Mental Status: Alert, Normal Affect, Normal Mood - Problem List Review Problem List Initiated/Reviewed/Updated: Yes - My Orders Last 24 Hours: My Active Orders 04/18/17 16:15 Dextrose 5%-0.9% NaCl [Dextrose 5%-Normal Saline] 1,000 ml IV ASDIRECTED 04/18/17 17:29 Consult to Dietary [Consult to Wet Process Assistant Head Miller] [CONS] Routine 04/19/17 07:00 Dronabinol [Marinol] 2.5 mg PO TIDAC 04/19/17 08:00 Potassium Chloride [Klor-Con M20] 40 meq PO ONETIME ONE - Plan Plan:: Assessment/Plan: Acute: Failure To Thrive - Recent URI/Bronchitis - Decreased Appetite and Questionable New onset of Confusion/Memory Impairment - Head CT scan shows no acute stroke - Supportive Care - Continue appetite stimulants Generalized Weakness, Unchanged - Started on 03-26-17 - Was seen by PCP on treated for cough/bronchitis on the last month ( was given Doxycycline and Tessalon Perles) - Usually independent not receiving any assistance - She states "I'm so weak" - Continue PT/OT - Fall precautions - Vit D level pending - TSH and CRP -normal; FT4 levle cancelled--> will re-order for am labs - ESR minimally elevated Mild Confusion/MS - She seems to be at baseline now; Awaiting cognitive eval - No baseline cognitive dysfunction - AA and Ox2 only - Unable to recall recent events while in being evaluated in ED - UA negative - CXR and Head CT scan: both show no acute abnormal findings - Folic Acid and Vit B12 normal - RPR is a send out - Vit D level pending - UDS negative - TSH is normal - Continue Thiamin 100 mg po daily Slow GI Bleed/Hemocult Pos on - Hgb is 16.5--> 15.2 --> 14---> 13.6 - No hx/o Diverticulosis or Hemorrhoids - Heme stool pos in ED; no reports of recurrent GI bleed - C. Diff test-negative - Iron panel: only shows low transferrin level (liver function is normal; CBC is normal; > other anemia) - She is clinically and hemodynamically stable - Consulted Dr. Girard for further evaluation ALEJA vs CKD, Stable - No baseline renal level for comparison - Suspect CKD Stage 4; GFR stable - BUN 67/Cr 2.1--> 52/1.8; AG is 17.8--> 17 - IVF fluids - Hold off most BP meds - Continue to monitor renal function Mild Hypokalemia - K is 3.4 - 2/2 inadequate intake - Replete and monitor Resolved: S/p Dehydration - Lips chapped and poor ski turgor - Currently receiving IVFs - CR is 2.1 no baseline level for comparison; now 1.8 - Monitor renal function Mild Hyponatremia, Improving - Na 131--> 135--> 137 - 2/2 HCTZ use - Hold off medications - Currently receiving IVFs - Monitor Chronic: HTN HLD Osteoporosis Hypokalemia Renal Insufficiency Carotid Atherosclerosis Plan: She remains clinically stable Continue current treatment Routine AM Labs Continue PT/OT consult HEARING SPECIALIST for Cognitive eval Fall Precautions Dr. Girard consulted for dropping Hgb Level SW/CM for d/c planning Code Status: DNR/DNI Additional orders as above
[2017-04-19] MEDS ORDERED: Potassium Chloride 20 MEQ Tab.ER PO ONE (08:00)
[2017-04-19] MEDS: amLODIPine 10 MG Tab PO SCH (08:18)
[2017-04-19] MEDS: Dronabinol 2.5 MG Cap PO SCH ×3 (08:34→17:02)
--- NOTE | 2017-04-19 10:23 | PCM.CONSN ---
- General Info Date of Service: 04/19/17 - Patient Data Vitals - Most Recent: Last Vital Signs Temp 98.1 F 04/19/17 03:50 Pulse 56 L 04/19/17 03:50 Resp 16 04/19/17 03:50 BP 113/54 L 04/19/17 08:18 Pulse Ox 98 04/19/17 03:50 Weight - Most Recent: 74.616 kg I&O - Last 24 Hours: Intake & Output 04/18/17 04/19/17 04/19/17 23:59 07:59 15:59 Intake Total 520 200 Output Total 600 400 Balance -80 -200 Lab Results Last 24 Hours: Laboratory Results - last 24 hr 04/19/17 04/19/17 Range/Units 05:35 05:35 WBC 7.45 (3.98-10.04) K/mm3 RBC 4.67 (3.98-5.22) M/mm3 Hgb 13.6 (11.2-15.7) gm/L Hct 40.1 (34.1-44.9) % MCV 85.9 (79.4-94.8) fl MCH 29.1 (25.6-32.2) pg MCHC 33.9 (32.2-35.5) g/dl RDW Std Deviation 44.9 (36.4-46.3) fL Plt Count 232 (182-369) K/mm3 MPV 10.1 (9.4-12.3) fl Neut % (Auto) 54.6 (34.0-71.1) % Lymph % (Auto) 28.5 (19.3-51.7) % [place] % (Auto) 12.5 (4.7-12.5) % Eos % (Auto) 3.4 (0.7-5.8) Baso % (Auto) 0.5 (0.1-1.2) % Neut # (Auto) 4.07 (1.56-6.13) K/mm3 Lymph # (Auto) 2.12 (1.18-3.74) K/mm3 [place] # (Auto) 0.93 H (0.24-0.36) K/mm3 Eos # (Auto) 0.25 (0.04-0.36) K/mm3 Baso # (Auto) 0.04 (0.01-0.08) K/mm3 Sodium 137 (136-145) mEq/L Potassium 3.4 L (3.5-5.1) mEq/L Chloride 105 (98-107) mEq/L Carbon Dioxide 22 (21-32) mEq/L Anion Gap 13.4 (5-15) BUN 43 H (7-18) mg/dL Creatinine 1.7 H (0.55-1.02) mg/dL Est Cr Clr Drug Dosing 21.83 mL/min Estimated GFR (MDRD) 28 (>60) mL/min BUN/Creatinine Ratio 25.3 H (14-18) Glucose 131 H (83-115) mg/dL Calcium 8.9 (8.5-10.1) mg/dL Magnesium 1.8 (1.8-2.4) mg/dl Free T4 1.62 H (0.76-1.46) ng/dL Med Orders - Current: Current Medications Acetaminophen (Tylenol) 650 mg PO Q4H PRN PRN Reason: Pain (Mild 1-3)/fever Hydrocodone Bitart/Acetaminophen ([place] 325-5 Mg) 1 tab PO Q4H PRN PRN Reason: Pain (moderate 4-6) Albuterol/Ipratropium (Duoneb 3.0-0.5 Mg/3 Ml) 3 ml NEB Q4H PRN PRN Reason: Shortness Of Breath/wheezing Amlodipine Besylate (Norvasc) 10 mg PO DAILY [facility] Last Admin: 04/19/17 08:18 Dose: 10 mg Benzonatate (Tessalon Perles) 200 mg PO TID PRN PRN Reason: Cough Last Admin: 04/17/17 22:51 Dose: 200 mg Bisacodyl (Dulcolax) 5 mg PO DAILY PRN PRN Reason: Constipation Docusate Sodium (Colace) 100 mg PO BID PRN PRN Reason: Constipation Dronabinol (Marinol) 2.5 mg PO TIDAC [facility] Last Admin: 04/19/17 08:34 Dose: 2.5 mg Hydralazine HCl (Apresoline) 10 mg IVPUSH Q4H PRN PRN Reason: Hypertension Hydromorphone HCl (Dilaudid) 0.25 mg IVPUSH Q2H PRN PRN Reason: Pain (severe 7-10) Promethazine HCl 6.25 mg/ (Sodium Chloride) 50.25 mls @ 100 mls/hr IV Q6H PRN PRN Reason: Nausea/Vomiting Dextrose/Sodium Chloride (Dextrose 5%-Normal Saline) 1,000 mls @ 100 mls/hr IV ASDIRECTED [facility] Last Admin: 04/19/17 04:39 Dose: 100 mls/hr Lorazepam (Ativan) 0.25 mg IV Q6H PRN PRN Reason: Anxiety Lorazepam (Ativan) 2 mg IVPUSH Q4H PRN PRN Reason: Seizures Magnesium Sulfate (Pharmacy To Dose - Magnesium Replacement) 1 dose .XX ASDIRECTED [facility] Metoprolol Tartrate (Lopressor) 5 mg IVPUSH Q4H PRN PRN Reason: Tachycardia Ondansetron HCl (Zofran) 4 mg IV Q6H PRN PRN Reason: Nausea/Vomiting Last Admin: 04/18/17 08:08 Dose: 4 mg Polyethylene Glycol (Miralax) 17 gm PO DAILY PRN PRN Reason: Constipation Potassium Chloride (Pharmacy To Dose - Potassium Replacement) 1 dose .XX ASDIRECTED [facility] Senna/Docusate Sodium (Senna Plus) 1 tab PO BID PRN PRN Reason: Constipation Temazepam (Restoril) 7.5 mg PO BEDTIME PRN PRN Reason: Sleep Last Admin: 04/17/17 22:52 Dose: 7.5 mg Thiamine HCl (Vitamin B-1) 100 mg PO BEDTIME [facility] Last Admin: 04/18/17 22:15 Dose: 100 mg Discontinued Medications Lactated Ringer's (Ringers, Lactated) 1,000 mls @ 100 mls/hr IV ASDIRECTED [facility] Last Admin: 04/17/17 12:16 Dose: 100 mls/hr Thiamine HCl 200 mg/ Sodium (Chloride) 102 mls @ 204 mls/hr IV ONETIME ONE Stop: 04/17/17 13:18 Last Admin: 04/17/17 17:04 Dose: 204 mls/hr Magnesium Oxide (Magnesium Oxide) 400 mg PO ONETIME ONE Stop: 04/18/17 10:31 Last Admin: 04/18/17 11:56 Dose: 400 mg Megestrol Acetate (Megace) 40 mg PO ONETIME ONE Stop: 04/18/17 17:01 Last Admin: 04/18/17 18:41 Dose: Not Given Megestrol Acetate (Megace 40 Mg/Ml Susp) 40 mg PO ONETIME ONE Stop: 04/18/17 18:16 Last Admin: 04/18/17 18:40 Dose: 40 mg Non-Formulary Medication (Alendronate) 70 mg PO WEEKLY SHARON Potassium Chloride (Klor-Con M20) 40 meq PO Q4H SHARON Stop: 04/17/17 17:31 Last Admin: 04/17/17 19:55 Dose: 40 meq Potassium Chloride (Klor-Con M20) 40 meq PO ONETIME ONE Stop: 04/19/17 08:01 Last Admin: 04/19/17 08:18 Dose: 40 meq Scopolamine (Scopolamine) 1 each TRDERM NOW STA Stop: 04/18/17 15:48 Last Admin: 04/18/17 15:57 Dose: 1 each Consult PN Assessment/Plan Procedures: Procedures SPECIAL STAINS GROUP 1 (09/05/13) TISSUE EXAM BY PATHOLOGIST (09/05/13) Problem List Initiated/Reviewed/Updated: Yes My Orders Last 24 Hours: surgical consulst dictated MARGUERITE
--- NOTE | 2017-04-19 11:38 | PCM.PREANE ---
Preanesthetic Assessment - Anesthesia/Transfusion/Family Hx Anesthesia History: Prior Anesthesia Without Reaction Family History of Anesthesia Reaction: No Transfusion History: No Prior Transfusion(s) Intubation History: Unknown - Review of Systems General: Weakness (generalized), Fatigue Pulmonary: No Symptoms (Recent diagnosis of bronchitis), Cough Cardiovascular: No Symptoms (History of HTN, History of chronic hypokalemia) Gastrointestinal: Decreased Appetite, Diarrhea Neurological: Confusion Other: Reports: None (Positive heme in stools), Depression - Physical Assessment NPO Status Date: 04/19/17 NPO Status Time: 23:59 Pulse: 60 O2 Sat by Pulse Oximetry: 97 Respiratory Rate: 18 Blood Pressure: 113/54 Temperature: 36.9 C Vital Signs: Last Vital Signs Temp 36.9 C 04/19/17 07:23 Pulse 60 04/19/17 07:23 Resp 18 04/19/17 07:23 BP 113/54 L 04/19/17 08:18 Pulse Ox 97 04/19/17 07:23 Height: 1.68 m Weight: 74.616 kg ASA Class: 3 Mental Status: Other (Orientated to person. Patient presents confused and states , "I don't remember.") Airway Class: Mallampati = 3 Dentition: Reports: Normal Dentition, Caries Thyro-Mental Finger Breadths: 3 Mouth Opening Finger Breadths: 3 ROM/Head Extension: Full Lungs: Clear to Auscultation, Normal Respiratory Effort Cardiovascular: Regular Rate, Regular Rhythm, No Murmurs - Lab Values: Laboratory Last Values WBC 7.45 K/mm3 (3.98-10.04) 04/19/17 05:35 RBC 4.67 M/mm3 (3.98-5.22) 04/19/17 05:35 Hgb 13.6 gm/L (11.2-15.7) 04/19/17 05:35 Hct 40.1 % (34.1-44.9) 04/19/17 05:35 MCV 85.9 fl (79.4-94.8) 04/19/17 05:35 MCH 29.1 pg (25.6-32.2) 04/19/17 05:35 MCHC 33.9 g/dl (32.2-35.5) 04/19/17 05:35 RDW Std Deviation 44.9 fL (36.4-46.3) 04/19/17 05:35 Plt Count 232 K/mm3 (182-369) 04/19/17 05:35 MPV 10.1 fl (9.4-12.3) 04/19/17 05:35 Neut % (Auto) 54.6 % (34.0-71.1) 04/19/17 05:35 Lymph % (Auto) 28.5 % (19.3-51.7) 04/19/17 05:35 [place] % (Auto) 12.5 % (4.7-12.5) 04/19/17 05:35 Eos % (Auto) 3.4 (0.7-5.8) 04/19/17 05:35 Baso % (Auto) 0.5 % (0.1-1.2) 04/19/17 05:35 Neut # (Auto) 4.07 K/mm3 (1.56-6.13) 04/19/17 05:35 Lymph # (Auto) 2.12 K/mm3 (1.18-3.74) 04/19/17 05:35 [place] # (Auto) 0.93 K/mm3 (0.24-0.36) H 04/19/17 05:35 Eos # (Auto) 0.25 K/mm3 (0.04-0.36) 04/19/17 05:35 Baso # (Auto) 0.04 K/mm3 (0.01-0.08) 04/19/17 05:35 Neutrophils % (Manual) 61 % (40-60) H 04/17/17 09:10 Band Neutrophils % 0 % (0-10) 04/17/17 09:10 Lymphocytes % (Manual) 28 % (20-40) 04/17/17 09:10 Atypical Lymphs % 0 % 04/17/17 09:10 Monocytes % (Manual) 11 % (2-10) H 04/17/17 09:10 Eosinophils % (Manual) 0 % (0.7-5.8) L 04/17/17 09:10 Basophils % (Manual) 0 (0.1-1.2) L 04/17/17 09:10 Platelet Estimate Adequate 04/17/17 09:10 RBC Morph Comment Normal 04/17/17 09:10 ESR 27 mm/hr (0-20) H 04/17/17 09:10 PT 11.2 SECONDS (8.0-13.0) 04/17/17 09:10 INR 1.03 04/17/17 09:10 APTT 30 SECONDS (22-36) 04/17/17 09:10 Sodium 137 mEq/L (136-145) 04/19/17 05:35 Potassium 3.4 mEq/L (3.5-5.1) L 04/19/17 05:35 Chloride 105 mEq/L (98-107) 04/19/17 05:35 Carbon Dioxide 22 mEq/L (21-32) 04/19/17 05:35 Anion Gap 13.4 (5-15) 04/19/17 05:35 BUN 43 mg/dL (7-18) H 04/19/17 05:35 Creatinine 1.7 mg/dL (0.55-1.02) H 04/19/17 05:35 Est Cr Clr Drug Dosing 21.83 mL/min 04/19/17 05:35 Estimated GFR (MDRD) 28 mL/min (>60) 04/19/17 05:35 BUN/Creatinine Ratio 25.3 (14-18) H 04/19/17 05:35 Glucose 131 mg/dL (83-115) H 04/19/17 05:35 Calcium 8.9 mg/dL (8.5-10.1) 04/19/17 05:35 Magnesium 1.8 mg/dl (1.8-2.4) 04/19/17 05:35 Iron 66 ug/dL (50-170) 04/17/17 09:10 TIBC 175 ug/dL (100-400) 04/17/17 09:10 % Saturation 38 % (20-55) 04/17/17 09:10 Transferrin 140 mg/dL (202-364) L 04/17/17 09:10 Total Bilirubin 0.7 mg/dL (0.2-1.0) 04/17/17 09:10 AST 27 U/L (15-37) 04/17/17 09:10 ALT 27 U/L (14-59) 04/17/17 09:10 Alkaline Phosphatase 77 U/L (46-116) 04/17/17 09:10 C-Reactive Protein 0.3 mg/dL (<1.0) 04/18/17 06:35 NT-Pro-B Natriuret Pep 222 pg/mL (0-450) 04/17/17 09:10 Total Protein 8.5 g/dl (6.4-8.2) H 04/17/17 09:10 Albumin 3.8 g/dl (3.4-5.0) 04/17/17 09:10 Globulin 4.7 gm/dL 04/17/17 09:10 Albumin/Globulin Ratio 0.8 (1-2) L 04/17/17 09:10 Vitamin B12 624 pg/ml (193-986) 04/17/17 09:10 Folate 45.2 ng/mL (8.6-58.9) 04/17/17 09:10 Free T4 1.62 ng/dL (0.76-1.46) H 04/19/17 05:35 TSH 3rd Generation 1.998 uIU/mL (0.358-3.74) 04/17/17 09:10 Urine Color Yellow (Yellow) 04/17/17 09:05 Urine Appearance Clear (Clear) 04/17/17 09:05 Urine pH 6.0 (5.0-8.0) 04/17/17 09:05 Ur Specific [place] 1.020 (1.005-1.030) 04/17/17 09:05 Urine Protein Trace (Negative) H 04/17/17 09:05 Urine Glucose (UA) Negative (Negative) 04/17/17 09:05 Urine Ketones Trace (Negative) H 04/17/17 09:05 Urine Occult Blood Negative (Negative) 04/17/17 09:05 Urine Nitrite Negative (Negative) 04/17/17 09:05 Urine Bilirubin 1+ (Negative) H 04/17/17 09:05 Urine Urobilinogen 0.2 (0.2-1.0) 04/17/17 09:05 Ur Leukocyte Esterase Negative (Negative) 04/17/17 09:05 Urine RBC 0-5 /hpf (0-5) 04/17/17 09:05 Urine WBC 0-5 /hpf (0-5) 04/17/17 09:05 Ur Epithelial Cells 0-5 /hpf (0-5) 04/17/17 09:05 Urine Bacteria Few /hpf (FEW) 04/17/17 09:05 Hyaline Casts 0-5 /lpf (0-5) 04/17/17 09:05 Urine Mucus Few /hpf (FEW) 04/17/17 09:05 Urine Opiates Screen Negative (NEGATIVE) 04/17/17 17:20 Ur Buprenorphine Scrn Negative (NEGATIVE) 04/17/17 17:20 Ur Oxycodone Screen Negative (NEGATIVE) 04/17/17 17:20 Urine Methadone Screen Negative (NEGATIVE) 04/17/17 17:20 Ur Propoxyphene Screen Negative (NEGATIVE) 04/17/17 17:20 Ur Barbiturates Screen Negative (NEGATIVE) 04/17/17 17:20 Ur Tricyclics Screen Negative (NEGATIVE) 04/17/17 17:20 Ur Phencyclidine Scrn Negative (NEGATIVE) 04/17/17 17:20 Ur Amphetamine Screen Negative (NEGATIVE) 04/17/17 17:20 U Methamphetamines Scrn Negative (NEGATIVE) 04/17/17 17:20 U Benzodiazepines Scrn Negative (NEGATIVE) 04/17/17 17:20 U Cocaine Metab Screen Negative (NEGATIVE) 04/17/17 17:20 U Marijuana (THC) Screen Negative (NEGATIVE) 04/17/17 17:20 RPR Cancelled 04/17/17 09:10 C.difficile [id number] Presumptive negative 04/17/17 09:37 C. difficile Tox (PCR) Negative 04/17/17 09:37 MRSA (PCR) Negative 04/17/17 14:00 Above labs reviewed and noted and within acceptable ranges to proceed with scheduled procedure. - Imaging/EKG Impressions: CXR: negative Head CT: nothing acute noted. - Allergies Allergies/Adverse Reactions: Allergies Allergy/AdvReac Type Severity Reaction Status Date / Time No Known Allergies Allergy Verified 04/17/17 13:12 - Anesthesia Plan Pre-Op Medication Ordered: None - Acknowledgements Anesthesia Type Planned: MAC Pt an Appropriate Candidate for the Planned Anesthesia: Yes Alternatives and Risks of Anesthesia Discussed w Pt/Guardian: Yes Pt/Guardian Understands and Agrees with Anesthesia Plan: Yes PreAnesthesia Questionnaire HEENT History: Reports: Impaired Vision Cardiovascular History: Reports: High Cholesterol, Hypertension [employer] History: Reports: Other OB/BYN History: Hysterectomy-young- dosn't remember when Musculoskeletal History: Reports: Fracture - Infectious Disease History Infectious Disease History: Reports: Chicken Pox - Past Surgical History HEENT Surgical History: Reports: Cataract Surgery Female Surgical History: Reports: Hysterectomy - SUBSTANCE USE Smoking Status *Q: Never Smoker Second Hand Smoke Exposure: No Recreational Drug Use History: No - HOME MEDS Home Medications: Home Meds Alendronate [Fosamax] 70 mg PO WEEKLY 04/17/17 [History] Benzonatate [Tessalon Perle] 200 mg PO TID PRN 04/17/17 [History] Doxycycline [Doxycycline Monohydrate] 100 mg PO BID 04/17/17 [History] Potassium Chloride 10 meq PO DAILY 04/17/17 [History] Triamterene/Hydrochlorothiazid [Triamterene-HCTZ 37.5-25 MG] 1 tab PO DAILY 05/30 [History] Valsartan 80 mg PO DAILY 04/17/17 [History] amLODIPine [Norvasc] 10 mg PO DAILY 04/17/17 [History] atorvaSTATin [Lipitor] 20 mg PO DAILY 04/17/17 [History] - CURRENT (IN HOUSE) MEDS Current Meds: Current Medications Acetaminophen (Tylenol) 650 mg PO Q4H PRN PRN Reason: Pain (Mild 1-3)/fever Hydrocodone Bitart/Acetaminophen ([place] 325-5 Mg) 1 tab PO Q4H PRN PRN Reason: Pain (moderate 4-6) Albuterol/Ipratropium (Duoneb 3.0-0.5 Mg/3 Ml) 3 ml NEB Q4H PRN PRN Reason: Shortness Of Breath/wheezing Amlodipine Besylate (Norvasc) 10 mg PO DAILY [facility] Last Admin: 04/19/17 08:18 Dose: 10 mg Benzonatate (Tessalon Perles) 200 mg PO TID PRN PRN Reason: Cough Last Admin: 04/17/17 22:51 Dose: 200 mg Bisacodyl (Dulcolax) 5 mg PO DAILY PRN PRN Reason: Constipation Docusate Sodium (Colace) 100 mg PO BID PRN PRN Reason: Constipation Dronabinol (Marinol) 2.5 mg PO TIDAC [facility] Last Admin: 04/19/17 08:34 Dose: 2.5 mg Hydralazine HCl (Apresoline) 10 mg IVPUSH Q4H PRN PRN Reason: Hypertension Hydromorphone HCl (Dilaudid) 0.25 mg IVPUSH Q2H PRN PRN Reason: Pain (severe 7-10) Promethazine HCl 6.25 mg/ (Sodium Chloride) 50.25 mls @ 100 mls/hr IV Q6H PRN PRN Reason: Nausea/Vomiting Dextrose/Sodium Chloride (Dextrose 5%-Normal Saline) 1,000 mls @ 100 [facility]ls[facility] Last Admin: 04/19/17 04:39 Dose: 100 mls/hr Lorazepam (Ativan) 0.25 mg IV Q6H PRN PRN Reason: Anxiety Lorazepam (Ativan) 2 mg IVPUSH Q4H PRN PRN Reason: Seizures Magnesium Sulfate (Pharmacy To Dose - Magnesium Replacement) 1 dose .XX ASDIRECTED [facility] Metoprolol Tartrate (Lopressor) 5 mg IVPUSH Q4H PRN PRN Reason: Tachycardia Ondansetron HCl (Zofran) 4 mg IV Q6H PRN PRN Reason: Nausea/Vomiting Last Admin: 04/18/17 08:08 Dose: 4 mg Polyethylene Glycol (Miralax) 17 gm PO DAILY PRN PRN Reason: Constipation Potassium Chloride (Pharmacy To Dose - Potassium Replacement) 1 dose .XX ASDIRECTED [facility] Senna/Docusate Sodium (Senna Plus) 1 tab PO BID PRN PRN Reason: Constipation Temazepam (Restoril) 7.5 mg PO BEDTIME PRN PRN Reason: Sleep Last Admin: 04/17/17 22:52 Dose: 7.5 mg Thiamine HCl (Vitamin B-1) 100 mg PO BEDTIME [facility] Last Admin: 04/18/17 22:15 Dose: 100 mg Discontinued Medications Lactated Ringer's (Ringers, Lactated) 1,000 mls @ 100 mls/hr IV ASDIRECTED [facility] Last Admin: 04/17/17 12:16 Dose: 100 mls/hr Thiamine HCl 200 mg/ Sodium (Chloride) 102 mls @ 204 mls/hr IV ONETIME ONE Stop: 04/17/17 13:18 Last Admin: 04/17/17 17:04 Dose: 204 mls/hr Magnesium Oxide (Magnesium Oxide) 400 mg PO ONETIME ONE Stop: 04/18/17 10:31 Last Admin: 04/18/17 11:56 Dose: 400 mg Megestrol Acetate (Megace) 40 mg PO ONETIME ONE Stop: 04/18/17 17:01 Last Admin: 04/18/17 18:41 Dose: Not Given Megestrol Acetate (Megace 40 Mg/Ml Susp) 40 mg PO ONETIME ONE Stop: 04/18/17 18:16 Last Admin: 04/18/17 18:40 Dose: 40 mg Non-Formulary Medication (Alendronate) 70 mg PO WEEKLY [facility] Potassium Chloride (Klor-Con M20) 40 meq PO Q4H [facility] Stop: 04/17/17 17:31 Last Admin: 04/17/17 19:55 Dose: 40 meq Potassium Chloride (Klor-Con M20) 40 meq PO ONETIME ONE Stop: 04/19/17 08:01 Last Admin: 04/19/17 08:18 Dose: 40 meq Scopolamine (Scopolamine) 1 each TRDERM NOW STA Stop: 04/18/17 15:48 Last Admin: 04/18/17 15:57 Dose: 1 each
[2017-04-19] MEDS: Thiamine 100 MG Tab PO SCH (21:01)
[2017-04-20] MEDS: Dextrose 5%-0.9% NaCl 1,000 ML IV SCH ×2 (01:53→14:59)
[2017-04-20] MEDS: Dronabinol 2.5 MG Cap PO SCH ×3 (06:13→17:41)
--- NOTE | 2017-04-20 06:57 | CONS ---
CONSULTING PHYSICIAN: Warren Girard MD DATE OF CONSULTATION: 04/19/2017 HISTORY OF PRESENT ILLNESS: This is an 87-year-old who came in, on the 3rd to the hospital because of weakness and was noted to have maroon-colored stools. She was placed in the hospital, and her hemoglobin slowly drifted down to a high of 15, to now 13 and the BUN was up at 67 and now has drifted down to 43. She is on medication of Fosamax. The patient denies any chest pain or shortness of breath, cough, hoarseness, wheezing, fainting, weakness, numbness, convulsions, nausea, vomiting, indigestion, or hematochezia. MEDICATIONS: Per medication reconciliation form. She denies any use of nonsteroidals as anticoagulation or platelet inhibitors. MEDICAL PROBLEMS: Consist of memory problem, hypertension. PAST SURGICAL HISTORY: Hysterectomy. SOCIAL HISTORY: Never smoked. No alcohol use. FAMILY HISTORY: Not known by the patient. PHYSICAL EXAMINATION: VITAL SIGNS: Temperature is 36, pulse 80, respirations 16, and blood pressure 113/64. EYES: Sclerae white. Extraocular muscle motion normal. ORAL CAVITY: Healthy mucous membrane with mouth and tongue. NECK: Supple. No nodes. No thyromegaly. LUNGS: Clear. HEART: Tones regular rate. ABDOMEN: Soft. No tenderness, guarding, or rebound. EXTREMITIES: Upper extremities, no angulation deformities. Lower extremities, a little edema in the left leg from an old fracture. No sensorineural deficit. SKIN: Warm and dry. PSYCHIATRIC: Normal. Memory; she has a problem with long-term and short-term memory, disoriented at times. ASSESSMENT: Slow drop in the hemoglobin and some maroon stools, suspect upper gastrointestinal bleed. We recommend the EGD. Risk and complications discussed with the patient. They understand and consent, and we will schedule. ANGEL /[id number]
--- NOTE | 2017-04-20 07:55 | PCM.PN ---
- General Info Date of Service: 04/20/17 Admission Dx/Problem (Free Text): Admission Diagnosis/Problem Admission Diagnosis/Problem GI bleed not requiring more than 4 units of blood in 24 hours, ICU, or surgery Subjective Update: Follow Up Functional Status: Reports: Pain Controlled, Urinating. Denies: Tolerating Diet , New Symptoms - Review of Systems General: Denies: Fever, Weakness, Fatigue, Malaise, Chills HEENT: Reports: No Symptoms Pulmonary: Denies: Shortness of Breath Cardiovascular: Denies: Chest Pain Gastrointestinal: Reports: Decreased Appetite. Denies: Abdominal Pain, Difficulty Swallowing, Nausea, Vomiting Genitourinary: Reports: No Symptoms Musculoskeletal: Reports: No Symptoms Skin: Reports: No Symptoms Neurological: Reports: No Symptoms, Confusion (baseline), Weakness, Gait Disturbance. Denies: Difficulty Walking Psychiatric: Reports: Agitation. Denies: Depression, Mood Lability, Anxiety, Hallucinations Systems Review Comment:: No significant overnight or acute issues. She is about the same. She report no new complaints. Her K and Mg are low this morning. Her oral intake still poor- marginal. She afebrile w/o leukocytosis. - Patient Data Vitals - Most Recent: Last Vital Signs Temp 37.0 C 04/20/17 03:04 Pulse 51 L 04/20/17 03:04 Resp 15 04/20/17 03:04 BP 100/40 L 04/20/17 03:04 Pulse Ox 98 04/20/17 03:04 Weight - Most Recent: 77.111 kg I&O - Last 24 Hours: Intake & Output 04/19/17 04/20/17 04/20/17 22:59 06:59 14:59 Intake Total 2614 1150 Output Total 250 Balance 2364 1150 Lab Results Last 24 Hours: Laboratory Results - last 24 hr 04/17/17 04/20/17 04/20/17 Range/Units 17:00 05:50 05:50 WBC 7.37 (3.98-10.04) K/mm3 RBC 4.17 (3.98-5.22) M/mm3 Hgb 12.4 (11.2-15.7) gm/L Hct 35.8 (34.1-44.9) % MCV 85.9 (79.4-94.8) fl MCH 29.7 (25.6-32.2) pg MCHC 34.6 (32.2-35.5) g/dl RDW Std Deviation 44.0 (36.4-46.3) fL Plt Count 186 (182-369) K/mm3 MPV 10.2 (9.4-12.3) fl Neut % (Auto) 57.7 (34.0-71.1) % Lymph % (Auto) 27.1 (19.3-51.7) % [place] % (Auto) 11.4 (4.7-12.5) % Eos % (Auto) 2.7 (0.7-5.8) Baso % (Auto) 0.7 (0.1-1.2) % Neut # (Auto) 4.25 (1.56-6.13) K/mm3 Lymph # (Auto) 2.00 (1.18-3.74) K/mm3 [place] # (Auto) 0.84 H (0.24-0.36) K/mm3 Eos # (Auto) 0.20 (0.04-0.36) K/mm3 Baso # (Auto) 0.05 (0.01-0.08) K/mm3 Sodium 138 (136-145) mEq/L Potassium 3.2 L (3.5-5.1) mEq/L Chloride 107 (98-107) mEq/L Carbon Dioxide 22 (21-32) mEq/L Anion Gap 12.2 (5-15) BUN 28 H (7-18) mg/dL Creatinine 1.3 H (0.55-1.02) mg/dL Est Cr Clr Drug Dosing 28.70 mL/min Estimated GFR (MDRD) 39 (>60) mL/min BUN/Creatinine Ratio 21.5 H (14-18) Glucose 126 H (83-115) mg/dL Calcium 8.3 L (8.5-10.1) mg/dL Magnesium 1.5 L (1.8-2.4) mg/dl RPR Non-reactive (NONREACTIVE) Med Orders - Current: Current Medications Acetaminophen (Tylenol) 650 mg PO Q4H PRN PRN Reason: Pain (Mild 1-3)/fever Hydrocodone Bitart/Acetaminophen ([place] 325-5 Mg) 1 tab PO Q4H PRN PRN Reason: Pain (moderate 4-6) Albuterol/Ipratropium (Duoneb 3.0-0.5 Mg/3 Ml) 3 ml NEB Q4H PRN PRN Reason: Shortness Of Breath/wheezing Amlodipine Besylate (Norvasc) 10 mg PO DAILY [facility] Last Admin: 04/19/17 08:18 Dose: 10 mg Benzonatate (Tessalon Perles) 200 mg PO TID PRN PRN Reason: Cough Last Admin: 04/17/17 22:51 Dose: 200 mg Bisacodyl (Dulcolax) 5 mg PO DAILY PRN PRN Reason: Constipation Docusate Sodium (Colace) 100 mg PO BID PRN PRN Reason: Constipation Dronabinol (Marinol) 2.5 mg PO TIDAC [facility] Last Admin: 04/20/17 06:13 Dose: Not Given Hydralazine HCl (Apresoline) 10 mg IVPUSH Q4H PRN PRN Reason: Hypertension Hydromorphone HCl (Dilaudid) 0.25 mg IVPUSH Q2H PRN PRN Reason: Pain (severe 7-10) Promethazine HCl 6.25 mg/ (Sodium Chloride) 50.25 mls @ 100 mls/hr IV Q6H PRN PRN Reason: Nausea/Vomiting Dextrose/Sodium Chloride (Dextrose 5%-Normal Saline) 1,000 mls @ 100 mls/hr IV ASDIRECTED [facility] Last Admin: 04/20/17 01:53 Dose: 100 mls/hr Lorazepam (Ativan) 0.25 mg IV Q6H PRN PRN Reason: Anxiety Lorazepam (Ativan) 2 mg IVPUSH Q4H PRN PRN Reason: Seizures Magnesium Sulfate (Pharmacy To Dose - Magnesium Replacement) 1 dose .XX ASDIRECTED [facility] Metoprolol Tartrate (Lopressor) 5 mg IVPUSH Q4H PRN PRN Reason: Tachycardia Ondansetron HCl (Zofran) 4 mg IV Q6H PRN PRN Reason: Nausea/Vomiting Last Admin: 04/18/17 08:08 Dose: 4 mg Polyethylene Glycol (Miralax) 17 gm PO DAILY PRN PRN Reason: Constipation Potassium Chloride (Pharmacy To Dose - Potassium Replacement) 1 dose .XX ASDIRECTED [facility] Potassium Chloride (Klor-Con M20) 40 meq PO Q4H [facility] Stop: 04/20/17 17:01 Senna/Docusate Sodium (Senna Plus) 1 tab PO BID PRN PRN Reason: Constipation Temazepam (Restoril) 7.5 mg PO BEDTIME PRN PRN Reason: Sleep Last Admin: 04/17/17 22:52 Dose: 7.5 mg Thiamine HCl (Vitamin B-1) 100 mg PO BEDTIME [facility] Last Admin: 04/19/17 21:01 Dose: 100 mg Discontinued Medications Lactated Ringer's (Ringers, Lactated) 1,000 mls @ 100 mls/hr IV ASDIRECTED [facility] Last Admin: 04/17/17 12:16 Dose: 100 mls/hr Thiamine HCl 200 mg/ Sodium (Chloride) 102 mls @ 204 mls/hr IV ONETIME ONE Stop: 04/17/17 13:18 Last Admin: 04/17/17 17:04 Dose: 204 mls/hr Magnesium Oxide (Magnesium Oxide) 400 mg PO ONETIME ONE Stop: 04/18/17 10:31 Last Admin: 04/18/17 11:56 Dose: 400 mg Megestrol Acetate (Megace) 40 mg PO ONETIME ONE Stop: 04/18/17 17:01 Last Admin: 04/18/17 18:41 Dose: Not Given Megestrol Acetate (Megace 40 Mg/Ml Susp) 40 mg PO ONETIME ONE Stop: 04/18/17 18:16 Last Admin: 04/18/17 18:40 Dose: 40 mg Non-Formulary Medication (Alendronate) 70 mg PO WEEKLY [facility] Potassium Chloride (Klor-Con M20) 40 meq PO Q4H [facility] Stop: 04/17/17 17:31 Last Admin: 04/17/17 19:55 Dose: 40 meq Potassium Chloride (Klor-Con M20) 40 meq PO ONETIME ONE Stop: 04/19/17 08:01 Last Admin: 04/19/17 08:18 Dose: 40 meq Scopolamine (Scopolamine) 1 each TRDERM NOW STA Stop: 04/18/17 15:48 Last Admin: 04/18/17 15:57 Dose: 1 each - Exam General: Alert, Cooperative, No Acute Distress HEENT: Pupils Equal, Pupils Reactive, EOMI, Mucous Membr. Moist/[place] Neck: Supple, Trachea Midline, No JVD Lungs: Normal Respiratory Effort, Decreased Breath Sounds Cardiovascular: Regular Rate, Regular Rhythm GI/Abdominal Exam: Normal Bowel Sounds, Soft, Non-Tender, No Organomegaly, No Distention, No Abnormal Bruit (Female) Exam: Deferred Back Exam: Normal Inspection, Decreased Range of Motion Extremities: Normal Inspection, Normal Range of Motion, Non-Tender, No Pedal Edema, Normal Capillary Refill Peripheral Pulses: 2+: Dorsalis Pedis (L), Dorsalis Pedis (R) Skin: Warm, Dry, Intact Neurological: No New Focal Deficit Psy/Mental Status: Alert, Normal Affect, Normal Mood - Problem List Review Problem List Initiated/Reviewed/Updated: Yes - My Orders Last 24 Hours: My Active Orders 04/19/17 07:00 Dronabinol [Marinol] 2.5 mg PO TIDAC 04/19/17 09:29 Consult to Physician [CONS] Routine 04/19/17 09:30 Notify Provider Consults [RC] ASDIRECTED 04/20/17 13:00 Potassium Chloride [Klor-Con M20] 40 meq PO Q4H - Plan Plan:: Assessment/Plan: Acute: Failure To Thrive - Recent URI/Bronchitis - Decreased Appetite and Questionable New onset of Confusion/Memory Impairment - Head CT scan shows no acute stroke - Supportive Care - Continue appetite stimulants Generalized Weakness, Unchanged - Started on 03-26-17 - Was seen by PCP on treated for cough/bronchitis on the last month ( was given Doxycycline and Tessalon Perles) - Usually independent not receiving any assistance - She states "I'm so weak" - Continue PT/OT - Fall precautions - Vit D level 22 (low); will start supplement - TSH and CRP -normal; FT4 level cancelled--> FT4 level 1.62 - ESR minimally elevated Moderate -Severe Memory Impairment - She seems to be at baseline now; Cognitive eval completed - No baseline cognitive dysfunction - AA and Ox2 only - Unable to recall recent events while in being evaluated in ED - UA negative - CXR and Head CT scan: both show no acute abnormal findings - Folic Acid and Vit B12 normal - RPR is a send out - Vit D level pending - UDS negative - TSH is normal - Continue Thiamin 100 mg po daily Slow GI Bleed/Hemocult Pos on - Hgb is 16.5--> 15.2 --> 14---> 13.6--> 12.4 - No hx/o Diverticulosis or Hemorrhoids - Heme stool pos in ED; no reports of recurrent GI bleed - C. Diff test-negative - Iron panel: only shows low transferrin level (liver function is normal; CBC is normal; > other anemia) - She is clinically and hemodynamically stable - Consulted Dr. Girard for further evaluation--> patient scheduled for endoscopy this AM to r/o PUD CKD Stage 3, Stable - No baseline renal level for comparison - Suspect CKD Stage 4; GFR stable - BUN 67/Cr 2.1--> 52/1.8; AG is 17.8--> 17 - IVF fluids - Hold off most BP meds - Continue to monitor renal function Mild Hypokalemia - K is 3.4--> 3.2 - 2/2 poor intake - Replete and monitor Vitamin D Deficiency - Vit D level 22 ng/ml (30-100) - Vitamin D2 50, 000 units 1 tab po weekly x4 then monthly; first dose in AM Resolved: S/p Dehydration - Lips chapped and poor ski turgor - Currently receiving IVFs - CR is 2.1 no baseline level for comparison; now 1.8 - Monitor renal function Mild Hyponatremia, Improving - Na 131--> 135--> 137 - 2/2 HCTZ use - Hold off medications - Currently receiving IVFs - Monitor Chronic: HTN HLD Osteoporosis Hypokalemia Renal Insufficiency Carotid Atherosclerosis Plan: She is essentially the same clinically Continue current treatment Routine AM Labs Continue PT/OT consult [employer] for Cognitive eval: moderate-severe memory impairment Fall Precautions Dr. Girard will continue to follow as needed SW/CM for d/c planning Code Status: DNR/DNI Additional orders as above LOS anticipate > 96hrs pending NH placement
[2017-04-20] MEDS ORDERED: fentaNYL 100 MCG/2 ML SDV ONE (07:57)
[2017-04-20] MEDS ORDERED: Propofol 200 MG/20 ML SDV ONE (07:57)
[2017-04-20] MEDS ORDERED: Lidocaine 1% 6 ML ONE (07:57)
[2017-04-20] MEDS: amLODIPine 10 MG Tab PO SCH (09:21)
--- NOTE | 2017-04-20 10:24 | PCM.OPNOTE ---
- General Post-Op/Procedure Note Date of Surgery/Procedure: 04/20/17 Operative Procedure(s): EGD with bx Pre Op Diagnosis: Gi bleeding upper Post-Op Diagnosis: Same Anesthesia Technique: MAC Primary Surgeon: Warren Girard EBL in mLs: 0 Complications: None Condition: Good Free Text/Narrative:: Intake & Output 04/19/17 04/20/17 04/20/17 23:59 07:59 15:59 Intake Total 2614 1150 Output Total 250 Balance 2364 1150
--- NOTE | 2017-04-20 10:29 | PCM.POSTAN ---
POST ANESTHESIA ASSESSMENT - MENTAL STATUS Mental Status: Alert, Oriented - VITAL SIGNS Pulse Rate: 67 SaO2: 90 Resp Rate: 13 Blood Pressure: 100/63 Temperature: 36.6 C - RESPIRATORY Respiratory Status: Respiratory Rate WNL, Airway Patent, O2 Saturation Stable, Supplemental Oxygen - CARDIOVASCULAR CV Status: Pulse Rate WNL, Blood Pressure Stable - GASTROINTESTINAL GI Status: No Symptoms - PAIN Pain Score: 0 - POST OP HYDRATION Hydration Status: Adequate & Stable
[2017-04-20] MEDS: Pantoprazole 40 MG Vial IVPUSH SCH ×2 (11:23→22:03)
[2017-04-20] MEDS: Sucralfate Suspension 1 GM/10 ML Cup PO SCH ×3 (11:23→22:03)
--- NOTE | 2017-04-20 11:23 | PCM48HPAN ---
Post Anesthesia Note - EVALUATION WITHIN 48HRS OF ANESTHETIC Vital Signs in Normal Range: Yes Patient Participated in Evaluation: Yes Respiratory Function Stable: Yes Airway Patent: Yes Cardiovascular Function Stable: Yes Hydration Status Stable: Yes Pain Control Satisfactory: Yes Nausea and Vomiting Control Satisfactory: Yes Mental Status Recovered: Yes
[2017-04-20] MEDS ORDERED: Magnesium Oxide 400 MG Tab PO ONE (14:00)
[2017-04-20] MEDS: Potassium Chloride 20 MEQ Tab.ER PO SCH ×2 (14:58→17:41)
[2017-04-20] MEDS: Thiamine 100 MG Tab PO SCH (22:03)
[2017-04-21] MEDS: Dextrose 5%-0.9% NaCl 1,000 ML IV SCH (02:37)
--- NOTE | 2017-04-21 05:42 | OR ---
DATE OF OPERATION: 04/20/2017 SURGEON: Warren Girard MD PREOPERATIVE DIAGNOSIS: Upper gastrointestinal bleed. POSTOPERATIVE DIAGNOSIS: Upper gastrointestinal bleed. OPERATION PERFORMED: Esophagogastroduodenoscopy with biopsy done under IV sedation. FINDINGS: Multiple ulcers to 2nd portion of the duodenum and in the posterior duodenal bulb with punched-out ulcer with black base, no visible vessel noted. No active bleeding and then duodenal bulb duodenitis. The antrum showed some evidence of gastritis, of which biopsies were taken. Fundus and body and cardia of the stomach unremarkable. However, the GE junction was located at 35 cm and shows areas of ulceration. This was biopsied. The ulcerations are going in a linear fashion, noted at 30 cm in the esophagus. DESCRIPTION OF PROCEDURE: The patient was taken to the endoscopy room, placed in the supine position, given IV sedation. Bite block was inserted and placed in the left lateral position. A video Olympus gastroscope was placed in the posterior oropharynx, under direct vision, threaded past the cricopharyngeus, down the esophagus into the stomach. The stomach was insufflated, and the scope passed through the pylorus to the second portion of the duodenum. Multiple superficial ulcers were noted in the second portion of the duodenum and a further deeper punched-out black lesion about a centimeter to a centimeter and a half across, was a black ulcer with black base was noted in the posterior duodenal bulb. The duodenal bulb itself showed gastritis. The pyloric channel was unremarkable. The antrum showed some evidence of gastritis, patchy and this was biopsied. Body, fundus, and cardia of the stomach unremarkable. J-maneuver showed a slight sliding hiatal hernia. Scope was withdrawn from the GE junction which showed ulcerations. This was biopsied and some superficial ulcerations in the esophagus at 30 cm, this was biopsied. The rest of the esophagus was unremarkable. The patient tolerated the procedure and was sent to recovery room in a stable condition. Specimen sent to pathology in a labeled container. ANESTHESIA: ESTIMATED BLOOD LOSS: MMODAL /[id number]
[2017-04-21] MEDS: Dronabinol 2.5 MG Cap PO SCH ×3 (06:34→16:28)
[2017-04-21] MEDS: Sucralfate Suspension 1 GM/10 ML Cup PO SCH ×4 (06:34→21:25)
[2017-04-21] MEDS ORDERED: Ergocalciferol (Vitamin D2) 50,000 Unit Cap PO SCH (07:00)
[2017-04-21] MEDS: amLODIPine 10 MG Tab PO SCH (08:09)
[2017-04-21] MEDS ORDERED: Simvastatin 20 MG Tab PO SCH ×2 (09:00→21:00)
--- NOTE | 2017-04-21 09:00 | PCM.PN ---
- General Info Date of Service: 04/21/17 Admission Dx/Problem (Free Text): Admission Diagnosis/Problem Admission Diagnosis/Problem GI bleed not requiring more than 4 units of blood in 24 hours, ICU, or surgery Margaret is seen this morning, resting comfortably in bed. Pleasant and talkative. Denies c/o pain. States is "very hungry" for breakfast this morning. Nursing reports she ate a sandwich and ice cream last evening. Appetite is improved since starting marinol. EGD yesterday revealed ulcer disease. She is started on protonix and carafate. She denies c/o abd or epigastric pain. Functional Status: Reports: Pain Controlled, Tolerating Diet, Ambulating, Urinating. Denies: New Symptoms - Review of Systems General: Reports: No Symptoms HEENT: Reports: No Symptoms Pulmonary: Reports: No Symptoms. Denies: Shortness of Breath, Cough Cardiovascular: Reports: No Symptoms. Denies: Chest Pain Gastrointestinal: Reports: No Symptoms. Denies: Abdominal Pain, Decreased Appetite (resolved with addition of marinol), Diarrhea, Nausea, Vomiting Neurological: Reports: Confusion (pleasant; have to repeat things often as short term memory is not good) - Patient Data Vitals - Most Recent: Last Vital Signs Temp 97.5 F 04/20/17 20:31 Pulse 56 L 04/20/17 20:31 Resp 18 04/20/17 20:31 BP 116/68 04/21/17 08:09 Pulse Ox 98 04/20/17 20:31 Weight - Most Recent: 172 lb 5 oz I&O - Last 24 Hours: Intake & Output 04/20/17 04/21/17 04/21/17 22:59 06:59 14:59 Intake Total 3280 1320 Balance 3280 1320 Med Orders - Current: Current Medications Acetaminophen (Tylenol) 650 mg PO Q4H PRN PRN Reason: Pain (Mild 1-3)/fever Last Admin: 04/20/17 22:03 Dose: 650 mg Hydrocodone Bitart/Acetaminophen (Viola 325-5 Mg) 1 tab PO Q4H PRN PRN Reason: Pain (moderate 4-6) Albuterol/Ipratropium (Duoneb 3.0-0.5 Mg/3 Ml) 3 ml NEB Q4H PRN PRN Reason: Shortness Of Breath/wheezing Amlodipine Besylate (Norvasc) 10 mg PO DAILY [facility] Last Admin: 04/21/17 08:09 Dose: 10 mg Benzonatate (Tessalon Perles) 200 mg PO TID PRN PRN Reason: Cough Last Admin: 04/17/17 22:51 Dose: 200 mg Bisacodyl (Dulcolax) 5 mg PO DAILY PRN PRN Reason: Constipation Docusate Sodium (Colace) 100 mg PO BID PRN PRN Reason: Constipation Last Admin: 04/21/17 08:09 Dose: 100 mg Dronabinol (Marinol) 2.5 mg PO TIDAC [facility] Last Admin: 04/21/17 06:34 Dose: 2.5 mg Ergocalciferol (Vitamin D2) 50,000 units PO Q7D [facility] Stop: 05/12/17 07:01 Last Admin: 04/21/17 08:09 Dose: 50,000 units Hydralazine HCl (Apresoline) 10 mg IVPUSH Q4H PRN PRN Reason: Hypertension Hydromorphone HCl (Dilaudid) 0.25 mg IVPUSH Q2H PRN PRN Reason: Pain (severe 7-10) Promethazine HCl 6.25 mg/ (Sodium Chloride) 50.25 mls @ 100 mls/hr IV Q6H PRN PRN Reason: Nausea/Vomiting Lorazepam (Ativan) 0.25 mg IV Q6H PRN PRN Reason: Anxiety Lorazepam (Ativan) 2 mg IVPUSH Q4H PRN PRN Reason: Seizures Magnesium Sulfate (Pharmacy To Dose - Magnesium Replacement) 1 dose .XX ASDIRECTED [facility] Metoprolol Tartrate (Lopressor) 5 mg IVPUSH Q4H PRN PRN Reason: Tachycardia Non-Formulary Medication (Atorvastatin) 20 mg PO DAILY [facility] Non-Formulary Medication (Potassium Chloride [Potassium Chloride]) 10 meq PO DAILY [facility] Ondansetron HCl (Zofran) 4 mg IV Q6H PRN PRN Reason: Nausea/Vomiting Last Admin: 04/18/17 08:08 Dose: 4 mg Pantoprazole Sodium (Protonix Iv) 40 mg IVPUSH Q12H [facility] Last Admin: 04/20/17 22:03 Dose: 40 mg Polyethylene Glycol (Miralax) 17 gm PO DAILY PRN PRN Reason: Constipation Potassium Chloride (Pharmacy To Dose - Potassium Replacement) 1 dose .XX ASDIRECTED [facility] Senna/Docusate Sodium (Senna Plus) 1 tab PO BID PRN PRN Reason: Constipation Sucralfate (Carafate) 1 gm PO ACBED [facility] Last Admin: 04/21/17 06:34 Dose: 1 gm Temazepam (Restoril) 7.5 mg PO BEDTIME PRN PRN Reason: Sleep Last Admin: 04/17/17 22:52 Dose: 7.5 mg Thiamine HCl (Vitamin B-1) 100 mg PO BEDTIME [facility] Last Admin: 04/20/17 22:03 Dose: 100 mg Discontinued Medications Fentanyl (Sublimaze) Confirm Administered Dose 100 mcg .ROUTE .STK-MED ONE Stop: 04/20/17 07:58 Glycopyrrolate () Confirm Administered Dose 1 mg .ROUTE .STK-MED ONE Stop: 04/20/17 10:20 Lactated Ringer's (Ringers, Lactated) 1,000 mls @ 100 mls/hr [facility] Last Admin: 04/17/17 12:16 Dose: 100 mls/hr Thiamine HCl 200 mg/ Sodium (Chloride) 102 mls @ 204 mls/hr IV ONETIME ONE Stop: 04/17/17 13:18 Last Admin: 04/17/17 17:04 Dose: 204 mls/hr Dextrose/Sodium Chloride (Dextrose 5%-Normal Saline) 1,000 mls @ 100 mls/hr [facility] Last Admin: 04/21/17 02:37 Dose: 100 mls/hr Lidocaine HCl (Xylocaine-Mpf 1%) Confirm Administered Dose 6 mls @ as directed .ROUTE .STK-MED ONE Stop: 04/20/17 07:58 Magnesium Oxide (Magnesium Oxide) 400 mg PO ONETIME ONE Stop: 04/18/17 10:31 Last Admin: 04/18/17 11:56 Dose: 400 mg Magnesium Oxide (Magnesium Oxide) 800 mg PO ONETIME ONE Stop: 04/20/17 14:01 Last Admin: 04/20/17 14:58 Dose: 800 mg Megestrol Acetate (Megace) 40 mg PO ONETIME ONE Stop: 04/18/17 17:01 Last Admin: 04/18/17 18:41 Dose: Not Given Megestrol Acetate (Megace 40 Mg/Ml Susp) 40 mg PO ONETIME ONE Stop: 04/18/17 18:16 Last Admin: 04/18/17 18:40 Dose: 40 mg Non-Formulary Medication (Alendronate) 70 mg PO WEEKLY [facility] Potassium Chloride (Klor-Con M20) 40 meq PO Q4H [facility] Stop: 04/17/17 17:31 Last Admin: 04/17/17 19:55 Dose: 40 meq Potassium Chloride (Klor-Con M20) 40 meq PO ONETIME ONE Stop: 04/19/17 08:01 Last Admin: 04/19/17 08:18 Dose: 40 meq Potassium Chloride (Klor-Con M20) 40 meq PO Q4H [facility] Stop: 04/20/17 17:01 Last Admin: 04/20/17 17:41 Dose: 40 meq Propofol (Diprivan 20 Ml) Confirm Administered Dose 200 mg .ROUTE .STK-MED ONE Stop: 04/20/17 07:58 Scopolamine (Scopolamine) 1 each TRDERM NOW STA Stop: 04/18/17 15:48 Last Admin: 04/18/17 15:57 Dose: 1 each - Exam Quality Assessment: DVT Prophylaxis General: Alert, Cooperative, No Acute Distress HEENT: Pupils Equal, EOMI, Mucous Membr. Moist/[place] Neck: Supple Lungs: Clear to Auscultation, Normal Respiratory Effort, Decreased Breath Sounds (bases) Cardiovascular: Regular Rate, Regular Rhythm GI/Abdominal Exam: Normal Bowel Sounds, Soft, Non-Tender (Female) Exam: Deferred Extremities: Normal Inspection, No Pedal Edema, Normal Capillary Refill Peripheral Pulses: 1+: Dorsalis Pedis (L), Dorsalis Pedis (R) Neurological: Other (pleasantly confused; repetative statements, thoughts and questions. Poor short term memory) Psy/Mental Status: Alert, Normal Affect, Normal Mood - Problem List & Annotations (1) Peptic ulcer SNOMED Code(s): 50751927 Code(s): K27.9 - PEPTIC ULC, SITE UNSP, UNSP AC OR CHR, W/O HEMOR OR PERF Status: Acute Priority: High Current Visit: Yes (2) GI bleed SNOMED Code(s): 70421249 Code(s): K92.2 - GASTROINTESTINAL HEMORRHAGE, UNSPECIFIED Status: Acute Priority: High Current Visit: Yes Qualifiers: GI bleed type/associated pathology: unspecified peptic ulcer Qualified Code (s): K27.4 - Chronic or unspecified peptic ulcer, site unspecified, with hemorrhage (3) Cognitive impairment SNOMED Code(s): 544528396 Code(s): R41.89 - OTH SYMPTOMS AND SIGNS W COGNITIVE FUNCTIONS AND AWARENESS Status: Chronic Priority: High Current Visit: Yes (4) Hypokalemia SNOMED Code(s): 28315965 Code(s): E87.6 - HYPOKALEMIA Status: Acute Priority: High Current Visit : Yes (5) Hypomagnesemia SNOMED Code(s): 512730631 Code(s): E83.42 - HYPOMAGNESEMIA Status: Acute Priority: High Current Visit: Yes - Problem List Review Problem List Initiated/Reviewed/Updated: Yes - My Orders Last 24 Hours: My Active Orders 04/21/17 08:50 BASIC METABOLIC PANEL,BMP [CHEM] Routine 04/21/17 08:51 MAGNESIUM [CHEM] Routine 04/21/17 09:00 Potassium Chloride [Potassium Chloride] 10 meq PO DAILY atorvaSTATin 20 mg PO DAILY - Plan Plan:: Assessment/Plan: Acute: Failure To Thrive---improving - Recent URI/Bronchitis - Decreased Appetite and Questionable New onset of Confusion/Memory Impairment - Head CT scan shows no acute stroke - Supportive Care - Continue appetite stimulants--appetite dramatically improved with addition of marinol Generalized Weakness, improving slowly - Started on 03-26-17 - Was seen by PCP on treated for cough/bronchitis on the last month ( was given Doxycycline and Tessalon Perles) - Usually independent not receiving any assistance [employer] - Continue PT/OT - Fall precautions - Vit D level 22 (low); will start supplement - TSH and CRP -normal; FT4 level cancelled--> FT4 level 1.62 - ESR minimally elevated Moderate -Severe Memory Impairment - She seems to be at baseline now; Cognitive eval completed with moderate to severe cognitive impairment noted. - No baseline cognitive dysfunction [employer] documented - AA and Ox2 only, Unable to recall recent events while in being evaluated in ED, continues to have significant short term memory impairments during hospital stay. - UA negative - CXR and Head CT scan: both show no acute abnormal findings - Folic Acid and Vit B12 normal; RPR is a send out; Vit D level pending; UDS negative; TSH is normal; Continue Thiamin 100 mg po daily Slow GI Bleed/Hemocult Pos - Hgb is 16.5--> 15.2 --> 14---> 13.6--> 12.4----stable - No hx/o Diverticulosis or Hemorrhoids; Heme stool pos in ED; no reports of recurrent GI bleed - C. Diff test-negative - Iron panel: only shows low transferrin level (liver function is normal; CBC is normal; > other anemia) - She is clinically and hemodynamically stable - Consulted Dr. Girard for further evaluation--> endoscopy yesterday confirmed peptic ulcer disease- started on carafate and protonix CKD Stage 3, Stable - No baseline renal level for comparison - Suspect CKD Stage 4; GFR stable - BUN 67/Cr 2.1--> 52/1.8; AG is 17.8--> 17 - IVF fluids - Hold off most BP meds - Continue to monitor renal function Mild Hypokalemia - K is 3.4--> 3.2 - 2/2 poor intake - Replete and monitor Hypomagnesemia -Replete and monitor with daily labs Vitamin D Deficiency - Vit D level 22 ng/ml (30-100) - Vitamin D2 50, 000 units 1 tab po weekly x4 then monthly; first dose in AM Resolved: S/p Dehydration - Lips chapped and poor ski turgor - Currently receiving IVFs - CR is 2.1 no baseline level for comparison; now 1.8 - Monitor renal function Mild Hyponatremia, Improving - Na 131--> 135--> 137 - 2/2 HCTZ use - Hold off medications - Currently receiving IVFs - Monitor Chronic: HTN--stable HLD- cont home statin dose Osteoporosis Hypokalemia Renal Insufficiency--stable as above Carotid Atherosclerosis Plan: She is essentially the same clinically Continue current treatment Routine AM Labs Continue PT/OT consult DIRECTOR PROCESS for Cognitive eval: moderate-severe memory impairment Fall Precautions Dr. Girard will continue to follow as needed SW/CM for d/c planning Code Status: DNR/DNI Additional orders as above LOS anticipate > 96hrs pending NH placement
[2017-04-21] MEDS: Pantoprazole 40 MG Vial IVPUSH SCH ×3 (10:34→23:24)
[2017-04-21] MEDS: Potassium Chloride 10 MEQ Tab.ER PO SCH (10:34)
[2017-04-21] MEDS: Magnesium Sulfate/Water 2 GM in Premix Bag 1 BAG IV SCH ×2 (13:16→15:41)
[2017-04-21] MEDS: Thiamine 100 MG Tab PO SCH (21:25)
[2017-04-21] MEDS: Temazepam 7.5 MG Cap PO PRN (21:25)
[2017-04-21] MEDS ORDERED: Benzocaine/Cetylpyridinium/Menthol Lozenge MUCMEM PRN (22:58)
--- NOTE | 2017-04-22 06:25 | PCM.DCSUM1 ---
Discharge Summary - Hospital Course Free Text/Narrative:: This is an 87 yo elderly white female with past medical hx/o HTN, HLD, Osteoporosis and Chronic Hypokalemia who comes in for evaluation of increasing generalized weakness. Patient lives at [facility] and usually independent not receiving any assistance. Today, she was not on her baseline functional status and this morning, she asked Wellness for help so she can take her morning pills. She states "I'm so weak", "I can't" as noted on her chart. Patient was recently seen by her PCP and was diagnosed with presumptive cough/ bronchitis. She was given Doxy and Tessalon Perles but only took 1 pill of her 10 day course treatment. While in ED, she was observed confused and unable to recall recent events or memory. She was also found heme pos on stool after bowel movement. Patient carries no hx/o memory impairment or dementia. Her home medical records, revealed she was not on narcotics, sedatives or hypnotic drugs. Her initial work up shows a CBC remarkable for WBC of 11.16, RBC of 5.31, neutrophils of 61%, and monocytes of 11%. Her coagulation studies are all within normal limits. Her chemistry is remarkable for sodium of 131, carbon dioxide of 18, anion gap of 17.8, BUN of 67, creatinine of 2.1, glucose of 138, and total protein of 8.5. Liver enzymes and proBNP are within normal limits. TSH level is 1.99. Her UA is negative for urinary tract infection. Her chest x- ray and head CT scan both show no acute abnormal findings. Patient is being admitted for evaluation and management of generalized weakness and new onset of confusion. She is DNR/DNI. - Discharge Data Discharge Date: 04/22/17 (admit date 04/17/17) Discharge Disposition: DC/Tfer to Other 70 Condition: Good - Discharge Diagnosis/Problem(s) (1) Peptic ulcer SNOMED Code(s): 67537536 ICD Code: K27.9 - PEPTIC ULC, SITE UNSP, UNSP AC OR CHR, W/O HEMOR OR PERF Status: Acute Priority: High Current Visit: Yes (2) GI bleed SNOMED Code(s): 23949787 ICD Code: K92.2 - GASTROINTESTINAL HEMORRHAGE, UNSPECIFIED Status: Acute Priority: High Current Visit: Yes Qualifiers: GI bleed type/associated pathology: unspecified peptic ulcer Qualified Code (s): K27.4 - Chronic or unspecified peptic ulcer, site unspecified, with hemorrhage (3) Cognitive impairment SNOMED Code(s): 578665902 ICD Code: R41.89 - OT SYMPTOMS AND SIGNS W COGNITIVE FUNCTIONS AND AWARENESS Status: Chronic Priority: High Current Visit: Yes (4) Hypokalemia SNOMED Code(s): 12511718 ICD Code: E87.6 - HYPOKALEMIA Status: Acute Priority: High Current Visit: Yes (5) Hypomagnesemia SNOMED Code(s): 577436293 ICD Code: E83.42 - HYPOMAGNESEMIA Status: Acute Priority: High Current Visit: Yes (6) Failure to thrive in adult SNOMED Code(s): 530327415 ICD Code: R62.7 - ADULT FAILURE TO THRIVE Status: Acute Priority: High Current Visit: Yes (7) CKD (chronic kidney disease) stage 3, GFR 30-59 ml/min SNOMED Code(s): 733496238 ICD Code: N18.3 - CHRONIC KIDNEY DISEASE, STAGE 3 (MODERATE) Status: Chronic Priority: Medium Current Visit: Yes - Patient Summary/Data Operative Procedure(s) Performed: EGD with bx-- by Dr. Girard Complications: None Consults: Consultations 04/18/17 17:29 Consult to Dietary [Consult to Continuous Crusher Operator] [CONS] Routine 04/19/17 09:29 Consult to Physician [CONS] Routine -- Dr. Girard, General Surgeon PT/OT Labs Pending at D/C: None Recommended Follow-up Testing/Procedures: Patient DC instructions: ST: Recommend standby assistance for medications, finances and ADLs. Pt should incorporate memory strategies and aides in order to support memory/recall for functional information. Follow up with PCP, Dr. Sauceda within one week Follow up with Dr. Girard in 3-4 weeks- follow up ulcer Ambulate 3-4 times per day Increase services at [facility] Planned Operative Procedure(s) after DC: None Hospital Course: Assessment/Plan: Acute: Failure To Thrive---improving - Recent URI/Bronchitis - Decreased Appetite and Questionable New onset of Confusion/Memory Impairment - Head CT scan shows no acute stroke - Supportive Care - Continue appetite stimulants--appetite dramatically improved with addition of marinol Generalized Weakness, improving slowly - Started on 03-26-17 - Was seen by PCP on treated for cough/bronchitis on the last month ( was given Doxycycline and Tessalon Perles) - Usually independent not receiving any assistance 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 - No baseline cognitive dysfunction NUCLEAR MEDICINE OFFICER documented - AA and Ox2 only, Unable to recall recent events while in being evaluated in ED, continues to have significant short term memory impairments during hospital stay. - UA negative - CXR and Head CT scan: both show no acute abnormal findings - Folic Acid and Vit B12 normal; RPR is a send out; Vit D level pending; UDS negative; TSH is normal; Continue Thiamin 100 mg po daily Slow GI Bleed/Hemocult Pos - Hgb is 16.5--> 15.2 --> 14---> 13.6--> 12.4----stable - No hx/o Diverticulosis or Hemorrhoids; Heme stool pos in ED; no reports of recurrent GI bleed - C. Diff test-negative - Iron panel: only shows low transferrin level (liver function is normal; CBC is normal; > other anemia) - She is clinically and hemodynamically stable - Consulted Dr. Girard for further evaluation--> endoscopy yesterday confirmed peptic ulcer disease- started on carafate and protonix CKD Stage 3, Stable - No baseline renal level for comparison - Suspect CKD Stage 4; GFR stable - BUN 67/Cr 2.1--> 52/1.8; AG is 17.8--> 17 - IVF fluids - Hold off most BP meds - Continue to monitor renal function Mild Hypokalemia - K is 3.4--> 3.2 - 2/2 poor intake - Replete and monitor Hypomagnesemia -Replete and monitor with daily labs Vitamin D Deficiency - Vit D level 22 ng/ml (30-100) - Vitamin D2 50, 000 units 1 tab po weekly x4 then monthly; first dose in AM Resolved: S/p Dehydration - Lips chapped and poor ski turgor - Currently receiving IVFs - CR is 2.1 no baseline level for comparison; now 1.8 - Monitor renal function Mild Hyponatremia, Improving - Na 131--> 135--> 137 - 2/2 HCTZ use - Hold off medications - Currently receiving IVFs - Monitor Chronic: HTN--stable HLD- cont home statin dose Osteoporosis Hypokalemia Renal Insufficiency--stable as above Carotid Atherosclerosis Plan: She is essentially the same clinically Continue current treatment Routine AM Labs Continue PT/OT consult ORNAMENTER for Cognitive eval: moderate-severe memory impairment Fall Precautions Dr. Girard will continue to follow as needed SW/CM for d/c planning Code Status: DNR/DNI Additional orders as above LOS anticipate > 96hrs pending NH placement - Patient Instructions Diet: Heart Healthy Diet, Drink 8-10+ Glasses/Day Activity: As Tolerated Driving: Do Not Drive Showering/Bathing: May Shower Notify Provider of: Fever, Increased Pain, Nausea and/or Vomiting - Discharge Plan Prescriptions/Med Rec: Dronabinol [Marinol] 2.5 mg PO TIDAC #60 cap Ergocalciferol (Vitamin D2) [Vitamin D2] 50,000 units PO Q7D #4 cap Magnesium Oxide 400 mg PO BID #60 tab Omeprazole 20 mg PO BIDAC #60 cap.sr Sucralfate [Carafate] 1 gm PO ACBED #1 bottle Thiamine [Vitamin B-1] 100 mg PO BEDTIME #30 tablet Home Medications: Home Meds Alendronate [Fosamax] 70 mg PO WEEKLY 04/17/17 [History] Benzonatate [Tessalon Perle] 200 mg PO TID PRN 04/17/17 [History] Potassium Chloride 10 meq PO DAILY 04/17/17 [History] Triamterene/Hydrochlorothiazid [Triamterene-HCTZ 37.5-25 MG] 1 tab PO DAILY 05/30 [History] amLODIPine [Norvasc] 10 mg PO DAILY 04/17/17 [History] atorvaSTATin [Lipitor] 20 mg PO DAILY 04/17/17 [History] Acetaminophen [Tylenol] 650 mg PO Q4H PRN tablet 04/22/17 [Rx] Docusate Sodium [Colace] 100 mg PO BID PRN cap 04/22/17 [Rx] Dronabinol [Marinol] 2.5 mg PO TIDAC #60 cap 04/22/17 [Rx] Ergocalciferol (Vitamin D2) [Vitamin D2] 50,000 units PO Q7D #4 cap 04/22/17 [Rx ] Magnesium Oxide 400 mg PO BID #60 tab 04/22/17 [Rx] Omeprazole 20 mg PO BIDAC #60 cap.sr 04/22/17 [Rx] Sucralfate [Carafate] 1 gm PO ACBED #1 bottle 04/22/17 [Rx] Thiamine [Vitamin B-1] 100 mg PO BEDTIME #30 tablet 04/22/17 [Rx] Patient Handouts: Peptic Ulcer, [id number], Hypomagnesemia, Hypokalemia, Dementia Forms: ED Department Discharge Referrals: Lopez Sauceda MD [Primary Care Provider] - - Discharge Summary/Plan Comment DC Time >30 min.: Yes (40) - General Info Date of Service: 04/22/17 Admission Dx/Problem (Free Text: Admission Diagnosis/Problem Admission Diagnosis/Problem GI bleed not requiring more than 4 units of blood in 24 hours, ICU, or surgery Margaret is seen this morning, resting comfortably in bed. Pleasant and talkative. Denies c/o pain. Again, states is "very hungry" for breakfast this morning. Appetite is improved since starting marinol. EGD revealed ulcer disease. She is started on protonix and carafate. She denies c/o abd or epigastric pain. Functional Status: Reports: Pain Controlled, Tolerating Diet, Ambulating, Urinating. Denies: New Symptoms - Review of Systems General: Reports: No Symptoms HEENT: Reports: No Symptoms Pulmonary: Reports: No Symptoms. Denies: Shortness of Breath, Cough Cardiovascular: Reports: No Symptoms. Denies: Chest Pain Gastrointestinal: Reports: No Symptoms. Denies: Abdominal Pain, Constipation, Diarrhea, Nausea, Vomiting Neurological: Reports: Confusion (mild) Psychiatric: Reports: No Symptoms - Patient Data Vitals - Most Recent: Last Vital Signs Temp 98.8 F 04/21/17 19:55 Pulse 63 04/22/17 03:44 Resp 16 04/22/17 03:44 BP 107/90 04/22/17 03:44 Pulse Ox 100 04/22/17 03:44 Weight - Most Recent: 173 lb 12.8 oz I&O - Last 24 hours: Intake & Output 04/21/17 04/21/17 04/22/17 14:59 22:59 06:59 Intake Total 120 1260 800 Output Total 400 Balance 120 1260 400 Lab Results - Last 24 hrs: Laboratory Results - last 24 hr 04/21/17 Range/Units 10:12 Sodium 135 L (136-145) mEq/L Potassium 3.9 (3.5-5.1) mEq/L Chloride 105 (98-107) mEq/L Carbon Dioxide 23 (21-32) mEq/L Anion Gap 10.9 (5-15) BUN 15 (7-18) mg/dL Creatinine 1.3 H (0.55-1.02) mg/dL Est Cr Clr Drug Dosing 28.70 mL/min Estimated GFR (MDRD) 39 (>60) mL/min BUN/Creatinine Ratio 11.5 L (14-18) Glucose 108 (83-115) mg/dL Calcium 8.6 (8.5-10.1) mg/dL Magnesium 1.2 L (1.8-2.4) mg/dl Med Orders - Current: Current Medications Acetaminophen (Tylenol) 650 mg PO Q4H PRN PRN Reason: Pain (Mild 1-3)/fever Last Admin: 04/20/17 22:03 Dose: 650 mg Hydrocodone Bitart/Acetaminophen ([place] 325-5 Mg) 1 tab PO Q4H PRN PRN Reason: Pain (moderate 4-6) Albuterol/Ipratropium (Duoneb 3.0-0.5 Mg/3 Ml) 3 ml NEB Q4H PRN PRN Reason: Shortness Of Breath/wheezing Amlodipine Besylate (Norvasc) 10 mg PO DAILY [facility] Last Admin: 04/21/17 08:09 Dose: 10 mg Benzocaine/Menthol (Cepacol Sore Throat) 1 lozenge MUCMEM Q2HR PRN PRN Reason: Sore Throat Last Admin: 04/21/17 23:24 Dose: 1 lozenge Benzonatate (Tessalon Perles) 200 mg PO TID PRN PRN Reason: Cough Last Admin: 04/17/17 22:51 Dose: 200 mg Bisacodyl (Dulcolax) 5 mg PO DAILY PRN PRN Reason: Constipation Docusate Sodium (Colace) 100 mg PO BID PRN PRN Reason: Constipation Last Admin: 04/21/17 08:09 Dose: 100 mg Dronabinol (Marinol) 2.5 mg PO TIDAC [facility] Last Admin: 04/21/17 16:28 Dose: 2.5 mg Ergocalciferol (Vitamin D2) 50,000 units PO Q7D [facility] Stop: 05/12/17 07:01 Last Admin: 04/21/17 08:09 Dose: 50,000 units Hydralazine HCl (Apresoline) 10 mg IVPUSH Q4H PRN PRN Reason: Hypertension Hydromorphone HCl (Dilaudid) 0.25 mg IVPUSH Q2H PRN PRN Reason: Pain (severe 7-10) Promethazine HCl 6.25 mg/ (Sodium Chloride) 50.25 mls @ 100 mls/hr IV Q6H PRN PRN Reason: Nausea/Vomiting Lorazepam (Ativan) 0.25 mg IV Q6H PRN PRN Reason: Anxiety Lorazepam (Ativan) 2 mg IVPUSH Q4H PRN PRN Reason: Seizures Magnesium Sulfate (Pharmacy To Dose - Magnesium Replacement) 1 dose .XX ASDIRECTED [facility] Metoprolol Tartrate (Lopressor) 5 mg IVPUSH Q4H PRN PRN Reason: Tachycardia Ondansetron HCl (Zofran) 4 mg IV Q6H PRN PRN Reason: Nausea/Vomiting Last Admin: 04/18/17 08:08 Dose: 4 mg Pantoprazole Sodium (Protonix Iv) 40 mg IVPUSH Q12H [facility] Last Admin: 04/21/17 23:24 Dose: 40 mg Polyethylene Glycol (Miralax) 17 gm PO DAILY PRN PRN Reason: Constipation Potassium Chloride (Pharmacy To Dose - Potassium Replacement) 1 dose .XX ASDIRECTED [facility] Potassium Chloride (Klor-Con 10) 10 meq PO DAILY [facility] Last Admin: 04/21/17 10:34 Dose: 10 meq Senna/Docusate Sodium (Senna Plus) 1 tab PO BID PRN PRN Reason: Constipation Simvastatin (Zocor) 20 mg PO BEDTIME [facility] Last Admin: 04/21/17 21:25 Dose: 20 mg Sucralfate (Carafate) 1 gm PO ACBED [facility] Last Admin: 04/21/17 21:25 Dose: 1 gm Temazepam (Restoril) 7.5 mg PO BEDTIME PRN PRN Reason: Sleep Last Admin: 04/21/17 21:25 Dose: 7.5 mg Thiamine HCl (Vitamin B-1) 100 mg PO BEDTIME [facility] Last Admin: 04/21/17 21:25 Dose: 100 mg Triamterene/HCTZ (Dyazide 25-37.5 Mg) 1 each PO DAILY [facility] Discontinued Medications Fentanyl (Sublimaze) Confirm Administered Dose 100 mcg .ROUTE .STK-MED ONE Stop: 04/20/17 07:58 Glycopyrrolate () Confirm Administered Dose 1 mg .ROUTE .STK-MED ONE Stop: 04/20/17 10:20 Lactated Ringer's (Ringers, Lactated) 1,000 mls @ 100 mls/hr IV ASDIRECTED [facility] Last Admin: 04/17/17 12:16 Dose: 100 mls/hr Thiamine HCl 200 mg/ Sodium (Chloride) 102 mls @ 204 mls/hr IV ONETIME ONE Stop: 04/17/17 13:18 Last Admin: 04/17/17 17:04 Dose: 204 mls/hr Dextrose/Sodium Chloride (Dextrose 5%-Normal Saline) 1,000 mls @ 100 mls/hr IV ASDIRECTED [facility] Last Admin: 04/21/17 02:37 Dose: 100 mls/hr Lidocaine HCl (Xylocaine-Mpf 1%) Confirm Administered Dose 6 mls @ as directed .ROUTE .STK-MED ONE Stop: 04/20/17 07:58 Magnesium Sulfate 2 gm/ Premix 50 mls @ 25 mls/hr IV Q2H [facility] Stop: 04/21/17 15:44 Last Admin: 04/21/17 15:41 Dose: 25 mls/hr Magnesium Oxide (Magnesium Oxide) 400 mg PO ONETIME ONE Stop: 04/18/17 10:31 Last Admin: 04/18/17 11:56 Dose: 400 mg Magnesium Oxide (Magnesium Oxide) 800 mg PO ONETIME ONE Stop: 04/20/17 14:01 Last Admin: 04/20/17 14:58 Dose: 800 mg Megestrol Acetate (Megace) 40 mg PO ONETIME ONE Stop: 04/18/17 17:01 Last Admin: 04/18/17 18:41 Dose: Not Given Megestrol Acetate (Megace 40 Mg/Ml Susp) 40 mg PO ONETIME ONE Stop: 04/18/17 18:16 Last Admin: 04/18/17 18:40 Dose: 40 mg Non-Formulary Medication (Alendronate) 70 mg PO WEEKLY [facility] Potassium Chloride (Klor-Con M20) 40 meq PO Q4H [facility] Stop: 04/17/17 17:31 Last Admin: 04/17/17 19:55 Dose: 40 meq Potassium Chloride (Klor-Con M20) 40 meq PO ONETIME ONE Stop: 04/19/17 08:01 Last Admin: 04/19/17 08:18 Dose: 40 meq Potassium Chloride (Klor-Con M20) 40 meq PO Q4H [facility] Stop: 04/20/17 17:01 Last Admin: 04/20/17 17:41 Dose: 40 meq Propofol (Diprivan 20 Ml) Confirm Administered Dose 200 mg .ROUTE .STK-MED ONE Stop: 04/20/17 07:58 Scopolamine (Scopolamine) 1 each TRDERM NOW STA Stop: 04/18/17 15:48 Last Admin: 04/18/17 15:57 Dose: 1 each Simvastatin (Zocor) 20 mg PO BEDTIME [facility] Last Admin: 04/21/17 11:02 Dose: Not Given - Exam Quality Assessment: Reports: DVT Prophylaxis General: Reports: Alert, Cooperative, No Acute Distress HEENT: Reports: Pupils Equal, EOMI, Mucous Membr. Moist/Cyr Neck: Reports: Supple Lungs: Reports: Clear to Auscultation, Normal Respiratory Effort Cardiovascular: Reports: Regular Rate, Regular Rhythm GI/Abdominal Exam: Normal Bowel Sounds, Soft, Non-Tender (Female) Exam: Deferred Rectal (Female) Exam: Deferred Extremities: No Pedal Edema, Normal Capillary Refill Neurological: Reports: No New Focal Deficit Psy/Mental Status: Reports: Alert, Normal Affect, Normal Mood *Q Meaningful Use (DIS) - VTE *Q VTE Criteria *Q: - Stroke *Q Stroke Criteria *Q: - AMI *Q AMI Criteria *Q:
[2017-04-22] MEDS: Dronabinol 2.5 MG Cap PO SCH ×2 (06:30→10:04)
[2017-04-22] MEDS: Sucralfate Suspension 1 GM/10 ML Cup PO SCH ×2 (06:30→10:04)
[2017-04-22] MEDS ORDERED: Hydrochlorothiazide/Triamterene 25-37.5 MG Cap PO SCH (09:00)
[2017-04-22] MEDS: Potassium Chloride 10 MEQ Tab.ER PO SCH (10:03)
[2017-04-22] MEDS: Pantoprazole 40 MG Vial IVPUSH SCH (10:04)
[2017-04-22] MEDS: amLODIPine 10 MG Tab PO SCH (10:05)
--- NOTE | 2017-04-23 13:48 | PCM.OPNOTE ---
- General Post-Op/Procedure Note Date of Surgery/Procedure: 04/23/17 Operative Procedure(s): colonosocopy with bx and collection of specimen Pre Op Diagnosis: rectal bleeding Post-Op Diagnosis: Same Anesthesia Technique: MAC Primary Surgeon: Warren Girard EBL in mLs: 0 Complications: None Condition: Good
== END 2017-04-22 11:35 | disposition other institution (70) | DRG 378 ==
LOC: JD.ED 08:51 → SUPCPDRO 08:51 → JD.MS 11:48 → UNDOADMIN 11:48 → JD.MS 13:44
PROVIDERS: ADMIT Internal Medicine; ATTEND Internal Medicine
PROC: 0DB48ZX Excision of Esophagogastric Junction, Via Natural or Artificial Opening Endoscopic, Diagnostic (ICD-10-PCS; principal; 2017-04-20)
PROC: 0DB58ZX Excision of Esophagus, Via Natural or Artificial Opening Endoscopic, Diagnostic (ICD-10-PCS; 2017-04-20)
DX: K92.2 Gastrointestinal hemorrhage, unspecified (principal); R41.82 Altered mental status, unspecified; R05 Cough; K27.4 Chronic or unspecified peptic ulcer, site unspecified, with hemorrhage; E87.1 Hypo-osmolality and hyponatremia; E78.5 Hyperlipidemia, unspecified; E83.42 Hypomagnesemia; M81.0 Age-related osteoporosis without current pathological fracture; E87.6 Hypokalemia; R53.1 Weakness; Z66 Do not resuscitate; R41.89 Other symptoms and signs involving cognitive functions and awareness; E86.0 Dehydration; R62.7 Adult failure to thrive; I12.9 Hypertensive chronic kidney disease with stage 1 through stage 4 chronic kidney disease, or unspecified chronic kidney disease; N18.3 Chronic kidney disease, stage 3 (moderate); E55.9 Vitamin D deficiency, unspecified; J06.9 Acute upper respiratory infection, unspecified; Z79.899 Other long term (current) drug therapy
CPT/HCPCS: 36415; 70450; 71046; 80053; 81001; 82306; 82607; 82746; 83540; 83880; 84443; 84466; 85025; 85610; 85652; 85730; 87493 ×2; 93005; 96360; 99285; J7120; 00731; 80048; 80306; 83735; 84439; 85014; 85018; 86140; 86592; 87641; 88305; 96125-GN; 97110-GO; 97110-GP; 97116-GP; 97161-GP; 97166-GO; 97530-GO; 97535-GO; A9270-GY; C9113; J2001; J2405; J2704; J3010; J3411; J3475; J7030; J7042; Q0167

== ENCOUNTER 2017-04-22 16:22 | Inpatient (IN) | payer MEDICARE, BC ==
[2017-04-22] MEDS: Sodium Chloride 0.9% 1,000 ML IV SCH ×2 (17:22→22:49)
--- NOTE | 2017-04-22 18:22 | EDM.PDOC ---
ED HPI GENERAL MEDICAL PROBLEM - General Chief Complaint: Gastrointestinal Problem Stated Complaint: [facility] Time Seen by Provider: 04/22/17 18:00 Source of Information: Reports: Patient, Other History Limitations: Reports: Altered Mental Status (Patient is very confused and not able to provide a history with any degree of confidence.) - History of Present Illness INITIAL COMMENTS - FREE TEXT/NARRATIVE: 87-year-old female presented to the ED after having a large bright red bloody stool at home and subsequently in the ED she's had 2 further large bloody stools more than 2 handfuls of blood on the last occasion with clots. Initially she thought she might be bleeding from the vagina or urinary tract. The nurse assessed her by catheterization that was no blood in the urine. Also no blood noted in the vaginal vault. It was quite clear that blood was coming from the rectum all. He was discharged from the hospital earlier this morning after being admitted with a GI bleed. It is my understanding that she had an upper GI endoscopy while in the hospital with Dr. Girard and nothing was found. At present she appears to be having a significant lower GI bleed. She complains of diffuse lower abdominal discomfort. She states the pain tends to come and go i.e. cramping. Onset: Today Onset Date: 04/22/17 Onset Time: 15:00 Duration: Hour(s): Location: Reports: Other (Lower GI bleeding.) Severity: Moderate (Significant bleeding with 3 large ball bowel movements more than a handful of bright red blood and clot this afternoon.) Improves with: Reports: None Worsens with: Reports: None Context: Reports: Other (Discharge from the hospital earlier this morning.). Denies: Activity, Exercise, Lifting, Sick Contact, Trauma Associated Symptoms: Reports: Confusion, Loss of Appetite, Malaise, Weakness. 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: Other (see below) (None.) - Related Data Allergies Allergy/AdvReac Type Severity Reaction Status Date / Time No Known Allergies Allergy Verified 04/22/17 16:34 Home Meds: Home Meds Alendronate [Fosamax] 70 mg PO WEEKLY 04/17/17 [History] Benzonatate [Tessalon Perle] 200 mg PO TID PRN 04/17/17 [History] Potassium Chloride 10 meq PO DAILY 04/17/17 [History] Triamterene/Hydrochlorothiazid [Triamterene-HCTZ 37.5-25 MG] 1 tab PO DAILY 05/30 [History] amLODIPine [Norvasc] 10 mg PO DAILY 04/17/17 [History] atorvaSTATin [Lipitor] 20 mg PO DAILY 04/17/17 [History] Acetaminophen [Tylenol] 650 mg PO Q4H PRN tablet 04/22/17 [Rx] Docusate Sodium [Colace] 100 mg PO BID PRN cap 04/22/17 [Rx] Dronabinol [Marinol] 2.5 mg PO TIDAC #60 cap 04/22/17 [Rx] Ergocalciferol (Vitamin D2) [Vitamin D2] 50,000 units PO Q7D #4 cap 04/22/17 [Rx ] Magnesium Oxide 400 mg PO BID #60 tab 04/22/17 [Rx] Omeprazole 20 mg PO BIDAC #60 cap.sr 04/22/17 [Rx] Sucralfate [Carafate] 1 gm PO ACBED #1 bottle 04/22/17 [Rx] Thiamine [Vitamin B-1] 100 mg PO BEDTIME #30 tablet 04/22/17 [Rx] Past Medical History HEENT History: Reports: Impaired Vision Cardiovascular History: Reports: High Cholesterol, Hypertension 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 OB/BYN History: Hysterectomy-young- dosn't remember when Musculoskeletal History: Reports: Fracture - Infectious Disease History Infectious Disease History: Reports: Chicken Pox - Past Surgical History HEENT Surgical History: Reports: Cataract Surgery Female Surgical History: Reports: Hysterectomy Social & Family History - Family History Family Medical History: Noncontributory - Tobacco Use Smoking Status *Q: Never Smoker Second Hand Smoke Exposure: No - Caffeine Use Caffeine Use: Reports: Coffee - Recreational Drug Use Recreational Drug Use: No - Living Situation & Occupation Living situation: Reports: , Extended Care Facility (Currently living at [facility]) Occupation: Retired ED ROS GENERAL - Review of Systems Review Of Systems: See Below (Unable to obtain with any degree of certainty.) Constitutional: Reports: Malaise, Weakness, Fatigue, Decreased Appetite HEENT: Reports: Glasses Respiratory: Reports: Shortness of Breath, Cough. Denies: Wheezing, Pleuritic Chest Pain Cardiovascular: Denies: Chest Pain (Nonproductive), Blood Pressure Problem, Claudication, Edema, Lightheadedness, Orthopnea Endocrine: Reports: Fatigue GI/Abdominal: Reports: Abdominal Pain (Diffuse lower abdominal cramping pain by history. I think is coming and going.), Other (Passage of bright red blood per rectum 3 this afternoon since discharge from the hospital.) : Reports: Frequency, Incontinence (Sometimes leaks urine on urgency) Musculoskeletal: Reports: Back Pain, Joint Pain (Knees and hips at times) Skin: Reports: Pallor Neurological: Reports: Confusion, Dizziness, Difficulty Walking, Weakness Psychiatric: Reports: Confusion Hematologic/Lymphatic: Denies: Anemia Immunologic: Reports: No Symptoms ED EXAM, GI/ABD - Physical Exam Exam: See Below Exam Limited By: Altered Mental Status General Appearance: Anxious, Mild Distress Eyes: Bilateral: Normal Appearance Throat/Mouth: Normal Inspection, Normal Lips, Normal Oropharynx. No: Normal Teeth Head: Atraumatic, Normocephalic Neck: Normal Inspection, Limited Range of Motion, Tender Lateral (Tender bilaterally.) Respiratory/Chest: No Respiratory Distress, Decreased Breath Sounds (Decreased breath sounds to the lower 20% of lung santos.), Rales (Scattered rales best heard left base.). No: Normal Breath Sounds, Respiratory Distress Cardiovascular: Normal Peripheral Pulses, Regular Rate, Rhythm, No Edema, No Gallop, No Rub, Systolic Murmur (Grade 1/6 best heard at the left lower sternal border component with aortic stenosis.) GI/Abdominal Exam: Soft, Non-Tender, No Organomegaly, Distended (Diffuse hyperactive bowel sounds. Mildly distended in the upper abdomen with tympany to percussion. Compatible with aerophagia.), Tender, Abnormal Bowel Sounds, Other ( Complains of some pain suprapubically infraumbilical.). No: Guarding ( Suprapubically.), Rigid, Rebound Back Exam: Normal Inspection, Other (Mild kyphosis thoracic spine) Extremities: Non-Tender, No Pedal Edema, Other (Degenerative changes appreciated in both knees both hips with limited range of motion.). No: Normal Range of Motion Neurological: CN II-XII Intact, No Motor/Sensory Deficits, Disoriented, Slow to Respond, Memory Loss Recent Events. No: Oriented, Normal Cognition, Normal Gait Psychiatric: Anxious (Moderately anxious.) Skin Exam: Warm, Dry, Intact, Normal Color, Pallor (Slight pallor.) EKG INTERPRETATION EKG Date: 04/22/17 Time: 17:42 Rhythm: NSR Rate (Beats/Min): 74 [place]: Normal P-Wave: Present (Baseline in many leads suggest atrial flutter atrial fibrillation. However in leads 2 and 3 there is definite P-wave and regular narrow complex rhythm.) QRS: Other (Mild early R-wave transition but this may be lead placement.) ST-T: Other (Diffuse T-wave flattening from V4 to V6 and one in aVL nonspecific finding) QT: Normal EKG Interpretation Comments: Abnormal ECG. Course - Vital Signs Last Recorded V/S: Last Vital Signs Temp 36.8 C 04/23/17 08:28 Pulse 70 04/23/17 08:28 Resp 16 04/23/17 08:28 BP 122/71 04/23/17 08:28 Pulse Ox 98 04/23/17 08:28 - Orders/Labs/Meds Orders: Active Orders 24 hr Category Date Time Status PACKED CELLS [RED BLOOD CELLS LP] [BBK] Stat Lab 04/22/17 17:00 Results PATIENT RETYPE [BBK] Stat Lab 04/22/17 17:00 Results TYPE AND SCREEN [BBK] Stat Lab 04/22/17 17:00 Results Sodium Chloride 0.9% [Normal Saline] 1,000 ml Med 04/22/17 17:30 Active IV ASDIRECTED Transfuse PRBC [Transfuse Red Blood Cells] [COMM] Oth 04/22/17 19:27 Ordered Urgent Medication Orders Acetaminophen (Tylenol) 650 mg PO Q4H PRN PRN Reason: Pain (Mild 1-3)/fever Benzonatate (Tessalon Perles) 200 mg PO TID PRN PRN Reason: Cough Dronabinol (Marinol) 2.5 mg PO TIDAC SHARON Last Admin: 04/23/17 08:17 Dose: 2.5 mg Sodium Chloride (Normal Saline) 1,000 mls @ 150 mls/hr IV ASDIRECTED SHARON Last Admin: 04/23/17 05:42 Dose: 150 mls/hr Infusion: 04/23/17 05:30 Dose: 150 mls/hr Admin: 02/08/18 22:49 Dose: 150 mls/hr Infusion: 04/22/17 22:49 Dose: 150 mls/hr Admin: 04/22/17 17:22 Dose: 150 mls/hr Magnesium Oxide (Magnesium Oxide) 400 mg PO BID [facility] Last Admin: 04/23/17 08:16 Dose: 400 mg Admin: 04/23/17 01:09 Dose: Ondansetron HCl (Zofran) 4 mg IVPUSH Q4H PRN PRN Reason: Nausea/Vomiting Last Admin: 04/23/17 06:17 Dose: 4 mg Pantoprazole Sodium (Protonix) 40 mg PO BIDAC [facility] Last Admin: 04/23/17 06:14 Dose: 40 mg Simvastatin (Zocor) 20 mg PO DAILY [facility] Last Admin: 04/23/17 08:17 Dose: 20 mg Sucralfate (Carafate) 1 gm PO ACBED [facility] Last Admin: 04/23/17 06:14 Dose: 1 gm Admin: 04/23/17 01:09 Dose: Thiamine HCl (Vitamin B-1) 100 mg PO BEDTIME [facility] Last Admin: 04/23/17 01:09 Dose: Labs: Laboratory Tests 04/22/17 04/22/17 04/22/17 Range/Units 16:29 17:00 17:00 WBC 13.61 H (3.98-10.04) K/mm3 RBC 4.88 (3.98-5.22) M/mm3 Hgb 13.9 (11.2-15.7) gm/L Hct 41.6 (34.1-44.9) % MCV 85.2 (79.4-94.8) fl MCH 28.5 (25.6-32.2) pg MCHC 33.4 (32.2-35.5) g/dl RDW Std Deviation 45.6 (36.4-46.3) fL Plt Count 212 (182-369) K/mm3 MPV 9.9 (9.4-12.3) fl Neutrophils % (Manual) 85 H (40-60) % Band Neutrophils % 1 (0-10) % Lymphocytes % (Manual) 13 L (20-40) % Atypical Lymphs % 0 % Monocytes % (Manual) 1 L (2-10) % Eosinophils % (Manual) 0 L (0.7-5.8) % Basophils % (Manual) 0 L (0.1-1.2) Toxic Granulation 1+ slight Platelet Estimate Adequate RBC Morph Comment Normal PT 10.2 (8.0-13.0) SECONDS INR 0.94 APTT (22-36) SECONDS Sodium (136-145) mEq/L Potassium (3.5-5.1) mEq/L Chloride (98-107) mEq/L Carbon Dioxide (21-32) mEq/L Anion Gap (5-15) BUN (7-18) mg/dL Creatinine (0.55-1.02) mg/dL Est Cr Clr Drug Dosing Estimated GFR (MDRD) (>60) mL/min BUN/Creatinine Ratio (14-18) Glucose (83-115) mg/dL Calcium (8.5-10.1) mg/dL Total Bilirubin (0.2-1.0) mg/dL AST (15-37) U/L ALT (14-59) U/L Alkaline Phosphatase (46-116) U/L CK-MB (CK-2) (0-3.6) ng/ml Troponin I (0.00-0.056) ng/mL C-Reactive Protein (<1.0) mg/dL NT-Pro-B Natriuret Pep (0-450) pg/mL Total Protein (6.4-8.2) g/dl Albumin (3.4-5.0) g/dl Globulin gm/dL Albumin/Globulin Ratio (1-2) Urine Color Yellow (Yellow) Urine Appearance Clear (Clear) Urine pH 6.0 (5.0-8.0) Ur Specific [place] 1.020 (1.005-1.030) Urine Protein 1+ H (Negative) Urine Glucose (UA) Negative (Negative) Urine Ketones Trace H (Negative) Urine Occult Blood Negative (Negative) Urine Nitrite Negative (Negative) Urine Bilirubin 1+ H (Negative) Urine Urobilinogen 1.0 (0.2-1.0) Ur Leukocyte Esterase Negative (Negative) Urine RBC 0-5 (0-5) /hpf Urine WBC 0-5 (0-5) /hpf Ur Epithelial Cells 0-5 (0-5) /hpf Urine Bacteria Many H (FEW) /hpf Hyaline Casts 20-30 H (0-5) /lpf Urine Mucus Few (FEW) /hpf Blood Type Gel Antibody Screen Crossmatch 04/22/17 04/22/17 04/22/17 Range/Units 17:00 17:00 17:00 WBC (3.98-10.04) K/mm3 RBC (3.98-5.22) M/mm3 Hgb (11.2-15.7) gm/L Hct (34.1-44.9) % MCV (79.4-94.8) fl MCH (25.6-32.2) pg MCHC (32.2-35.5) g/dl RDW Std Deviation (36.4-46.3) fL Plt Count (182-369) K/mm3 MPV (9.4-12.3) fl Neutrophils % (Manual) (40-60) % Band Neutrophils % (0-10) % Lymphocytes % (Manual) (20-40) % Atypical Lymphs % % Monocytes % (Manual) (2-10) % Eosinophils % (Manual) (0.7-5.8) % Basophils % (Manual) (0.1-1.2) Toxic Granulation Platelet Estimate RBC Morph Comment PT (8.0-13.0) SECONDS INR APTT 33 (22-36) SECONDS Sodium 135 L (136-145) mEq/L Potassium 3.7 (3.5-5.1) mEq/L Chloride 102 (98-107) mEq/L Carbon Dioxide 20 L (21-32) mEq/L Anion Gap 16.7 H (5-15) BUN 19 H (7-18) mg/dL Creatinine 1.6 H (0.55-1.02) mg/dL Est Cr Clr Drug Dosing TNP Estimated GFR (MDRD) 30 (>60) mL/min BUN/Creatinine Ratio 11.9 L (14-18) Glucose 133 H (83-115) mg/dL Calcium 9.4 (8.5-10.1) mg/dL Total Bilirubin 0.5 (0.2-1.0) mg/dL AST 26 (15-37) U/L ALT 26 (14-59) U/L Alkaline Phosphatase 96 (46-116) U/L CK-MB (CK-2) (0-3.6) ng/ml Troponin I (0.00-0.056) ng/mL C-Reactive Protein (<1.0) mg/dL NT-Pro-B Natriuret Pep (0-450) pg/mL Total Protein 7.3 (6.4-8.2) g/dl Albumin 3.0 L (3.4-5.0) g/dl Globulin 4.3 gm/dL Albumin/Globulin Ratio 0.7 L (1-2) Urine Color (Yellow) Urine Appearance (Clear) Urine pH (5.0-8.0) Ur Specific [place] (1.005-1.030) Urine Protein (Negative) Urine Glucose (UA) (Negative) Urine Ketones (Negative) Urine Occult Blood (Negative) Urine Nitrite (Negative) Urine Bilirubin (Negative) Urine Urobilinogen (0.2-1.0) Ur Leukocyte Esterase (Negative) Urine RBC (0-5) /hpf Urine WBC (0-5) /hpf Ur Epithelial Cells (0-5) /hpf Urine Bacteria (FEW) /hpf Hyaline Casts (0-5) /lpf Urine Mucus (FEW) /hpf Blood Type O POSITIVE Gel Antibody Screen Negative Crossmatch See Detail 04/22/17 04/22/17 Range/Units 17:00 17:00 WBC (3.98-10.04) K/mm3 RBC (3.98-5.22) M/mm3 Hgb (11.2-15.7) gm/L Hct (34.1-44.9) % MCV (79.4-94.8) fl MCH (25.6-32.2) pg MCHC (32.2-35.5) g/dl RDW Std Deviation (36.4-46.3) fL Plt Count (182-369) K/mm3 MPV (9.4-12.3) fl Neutrophils % (Manual) (40-60) % Band Neutrophils % (0-10) % Lymphocytes % (Manual) (20-40) % Atypical Lymphs % % Monocytes % (Manual) (2-10) % Eosinophils % (Manual) (0.7-5.8) % Basophils % (Manual) (0.1-1.2) Toxic Granulation Platelet Estimate RBC Morph Comment PT (8.0-13.0) SECONDS INR APTT (22-36) SECONDS Sodium (136-145) mEq/L Potassium (3.5-5.1) mEq/L Chloride (98-107) mEq/L Carbon Dioxide (21-32) mEq/L Anion Gap (5-15) BUN (7-18) mg/dL Creatinine (0.55-1.02) mg/dL Est Cr Clr Drug Dosing Estimated GFR (MDRD) (>60) mL/min BUN/Creatinine Ratio (14-18) Glucose (83-115) mg/dL Calcium (8.5-10.1) mg/dL Total Bilirubin (0.2-1.0) mg/dL AST (15-37) U/L ALT (14-59) U/L Alkaline Phosphatase (46-116) U/L CK-MB (CK-2) 1.8 (0-3.6) ng/ml Troponin I < 0.017 (0.00-0.056) ng/mL C-Reactive Protein 0.7 (<1.0) mg/dL NT-Pro-B Natriuret Pep 1016 H (0-450) pg/mL Total Protein (6.4-8.2) g/dl Albumin (3.4-5.0) g/dl Globulin gm/dL Albumin/Globulin Ratio (1-2) Urine Color (Yellow) Urine Appearance (Clear) Urine pH (5.0-8.0) Ur Specific [place] (1.005-1.030) Urine Protein (Negative) Urine Glucose (UA) (Negative) Urine Ketones (Negative) Urine Occult Blood (Negative) Urine Nitrite (Negative) Urine Bilirubin (Negative) Urine Urobilinogen (0.2-1.0) Ur Leukocyte Esterase (Negative) Urine RBC (0-5) /hpf Urine WBC (0-5) /hpf Ur Epithelial Cells (0-5) /hpf Urine Bacteria (FEW) /hpf Hyaline Casts (0-5) /lpf Urine Mucus (FEW) /hpf Blood Type Gel Antibody Screen Crossmatch Meds: Medications Generic Name Dose Route Start Last Admin Trade Name Freq PRN Reason Stop Dose Admin Acetaminophen 650 mg 04/22/17 20:25 Tylenol PO Q4H PRN Pain (Mild 1-3)/fever Benzonatate 200 mg 04/22/17 20:25 Tessalon Perles PO TID PRN Cough Dronabinol 2.5 mg 04/23/17 07:00 04/23/17 08:17 Marinol PO 2.5 mg TIDAC SHARON Administration Sodium Chloride 1,000 mls @ 150 mls/hr 04/22/17 17:30 04/23/17 05:42 Normal Saline IV 150 mls/hr ASDIRECTED SHARON Administration Magnesium Oxide 400 mg 04/22/17 21:00 04/23/17 08:16 Magnesium Oxide PO 400 mg BID SHARON Administration Ondansetron HCl 4 mg 04/23/17 05:54 04/23/17 06:17 Zofran IVPUSH 4 mg Q4H PRN Administration Nausea/Vomiting Pantoprazole Sodium 40 mg 04/23/17 06:00 04/23/17 06:14 Protonix PO 40 mg BIDAC SHARON Administration Simvastatin 20 mg 04/23/17 09:00 04/23/17 08:17 Zocor PO 20 mg DAILY SHARON Administration Sucralfate 1 gm 04/22/17 22:00 04/23/17 06:14 Carafate PO 1 gm ACBED SHARON Administration Thiamine HCl 100 mg 04/22/17 21:00 04/23/17 01:09 Vitamin B-1 PO Not Given BEDTIME SHARON Discontinued Medications Generic Name Dose Route Start Last Admin Trade Name Freq PRN Reason Stop Dose Admin Furosemide 20 mg 04/22/17 20:42 04/22/17 22:49 Lasix IVPUSH 04/22/17 20:43 20 mg NOW ONE Administration Polyethylene Glycol/Electrolytes 4,000 ml 04/22/17 21:17 04/22/17 22:24 Golytely PO 04/22/17 21:18 4,000 ml ONETIME ONE Administration - Radiology Interpretation Free Text/Narrative:: 87-year-old female who was discharged from the hospital earlier today after she had been admitted for a GI bleed. To my under direct understanding she had an upper GI endoscopy which did not show any source of bleeding. Her hemoglobin and hematocrit remained stable and she was therefore discharged home. Since getting home this afternoon she had 1 large bloody stool at home and subtotally in the ED had 2 large bloody stools the first one was about a handful of blood the second one was 2 handfuls of blood and clots bright red in color. She is complaining of diffuse lower abdominal cramping pain which is intermittent. She is pleasantly confused. Unable to provide a useful history in fact has a very impaired short-term memory. Plan routine labs. IV normal saline at 150 mils an hour until he can establish her renal function and cardiac function. - Re-Assessments/Exams Free Text/Narrative Re-Assessment/Exam: 04/22/17 19:08 Lab work reveals a white count of 13.61. Differential is 85% neutrophils and 1% bands. Hemoglobin is 13.9 with hematocrit of 41.6. Platelet count is 212,000. PT is 10.2 with an INR of 0.94. PTT is 33 normal. Sodium is slightly low at 135. Potassium is 3.7. Cord 102 bicarbonate is 20 which is slightly low. Anion gap is 16.7 which is slightly elevated. BUN is 19 creatinine is 1.6. Glucose is 133. Calcium 9.4. Bilirubin 0.5. Liver function normal. CK-MB is 1.8. Troponin I is less than 0.017. C-reactive protein is less than 0.7. BNP is elevated at 1016. Total protein is 7.3 with an albumin fraction of 3.0. Urinalysis shows 1+ protein and trace of ketones 1+ bilirubin many bacteria 20-30 hyaline casts but no leukocyte esterase positivity or white cells in the urine. 04/22/17 19:29 I have spoken with Dr. Connors remediation technician hospitalist in regards to admission to the hospital. She will see the patient in the ED. Plan will be to admit her observation status med surgery on telemetry. There is a bit of confusion about the need for blood. 2 units of packed cells were ordered but my plan was to keep them available. The lab brought over a unit of blood in the nurse started to transfuse it. Since it is already being transfused I advised to continue transfusion in spite of her hemoglobin being 13.1. With the amount of GI blood loss she had her hemoglobin is estimated to drop at least 2 Departure - Departure Time of Disposition: 21:15 Disposition: Admitted As Inpatient 66 Condition: Fair Clinical Impression: Chronic renal insufficiency, stage III (moderate) Gastrointestinal hemorrhage Qualifiers: GI bleed type/associated pathology: unspecified peptic ulcer Qualified Code(s) : K27.4 - Chronic or unspecified peptic ulcer, site unspecified, with hemorrhage CHF (congestive heart failure) Qualifiers: Congestive heart failure type: diastolic Congestive heart failure chronicity: chronic Qualified Code(s): I50.32 - Chronic diastolic (congestive) heart failure - Discharge Information - My Orders Last 24 Hours: My Active Orders 04/22/17 17:00 PACKED CELLS [RED BLOOD CELLS LP] [BBK] Stat PATIENT RETYPE [BBK] Stat TYPE AND SCREEN [BBK] Stat 04/22/17 17:30 Sodium Chloride 0.9% [Normal Saline] 1,000 ml IV ASDIRECTED 04/22/17 19:27 Transfuse PRBC [Transfuse Red Blood Cells] [COMM] Urgent - Assessment/Plan Last 24 Hours: My Active Orders 04/22/17 17:00 PACKED CELLS [RED BLOOD CELLS LP] [BBK] Stat PATIENT RETYPE [BBK] Stat TYPE AND SCREEN [BBK] Stat 04/22/17 17:30 Sodium Chloride 0.9% [Normal Saline] 1,000 ml IV ASDIRECTED 04/22/17 19:27 Transfuse PRBC [Transfuse Red Blood Cells] [COMM] Urgent
[2017-04-22] MEDS ORDERED: Benzonatate 100 MG Cap PO PRN (20:25)
[2017-04-22] MEDS ORDERED: Acetaminophen 325 MG Tab PO PRN (20:25)
[2017-04-22] MEDS ORDERED: Furosemide 20 MG/2 ML VIAL IVPUSH ONE (20:42)
[2017-04-22] MEDS ORDERED: Polyethylene Glycol/Electrolytes 4,000 ML Bottle PO ONE (21:17)
--- NOTE | 2017-04-22 21:20 | PCM.HP ---
H&P History of Present Illness - General Date of Service: 04/22/17 Admit Problem/Dx: Admission Diagnosis/Problem Admission Diagnosis/Problem GI bleed not requiring more than 4 units of blood in 24 hours, ICU, or surgery Source of Information: Provider History Limitations: Reports: No Limitations - History of Present Illness Initial Comments - Free Text/Narative: 87-year-old female presented to the ED after having a large bright red bloody stool at home. Subsequently in the ED she has had two large bloody stools more with occasional clots. She was discharged from the hospital earlier this morning after being admitted with a GI bleed. The patient had a stable hospitalization; a duodenal ulcer and other abnormalities were found. She was started on Carafate as well as additional medication for erosive areas in the small intestine. A significant lower GI bleed is highly suspected. She complains of diffuse lower abdominal discomfort. She will be admitted for a colonoscopy which was not performed prior to discharge. A general surgery consult has been requested with notification this evening. The procedure will be scheduled for noon, Golytely will be started immediately for adequate preparation pre procedure. Onset of Symptoms: Reports: Sudden Symptom Onset Date: 04/22/17 Duration of Symptoms: Reports: Hour(s):, Getting Worse Location: Reports: Abdomen Quality: Reports: Same as Previous Episode Improves with: Reports: None Worsens with: Reports: None Associated Symptoms: Reports: Confusion, Loss of Appetite, Malaise, Weakness - Related Data Allergies/Adverse Reactions: Allergies Allergy/AdvReac Type Severity Reaction Status Date / Time No Known Allergies Allergy Verified 04/22/17 16:34 Home Medications: Home Meds Alendronate [Fosamax] 70 mg PO WEEKLY 04/17/17 [History] Benzonatate [Tessalon Perle] 200 mg PO TID PRN 04/17/17 [History] Potassium Chloride 10 meq PO DAILY 04/17/17 [History] Triamterene/Hydrochlorothiazid [Triamterene-HCTZ 37.5-25 MG] 1 tab PO DAILY 05/30 [History] amLODIPine [Norvasc] 10 mg PO DAILY 04/17/17 [History] atorvaSTATin [Lipitor] 20 mg PO DAILY 04/17/17 [History] Acetaminophen [Tylenol] 650 mg PO Q4H PRN tablet 04/22/17 [Rx] Docusate Sodium [Colace] 100 mg PO BID PRN cap 04/22/17 [Rx] Dronabinol [Marinol] 2.5 mg PO TIDAC #60 cap 04/22/17 [Rx] Ergocalciferol (Vitamin D2) [Vitamin D2] 50,000 units PO Q7D #4 cap 04/22/17 [Rx ] Magnesium Oxide 400 mg PO BID #60 tab 04/22/17 [Rx] Omeprazole 20 mg PO BIDAC #60 cap.sr 04/22/17 [Rx] Sucralfate [Carafate] 1 gm PO ACBED #1 bottle 04/22/17 [Rx] Thiamine [Vitamin B-1] 100 mg PO BEDTIME #30 tablet 04/22/17 [Rx] Past Medical History HEENT History: Reports: Impaired Vision Cardiovascular History: Reports: High Cholesterol, Hypertension 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 OB/BYN History: Hysterectomy-young- dosn't remember when Musculoskeletal History: Reports: Fracture - Infectious Disease History Infectious Disease History: Reports: Chicken Pox - Past Surgical History HEENT Surgical History: Reports: Cataract Surgery Female Surgical History: Reports: Hysterectomy Social & Family History - Family History Family Medical History: Noncontributory - Tobacco Use Smoking Status *Q: Never Smoker Second Hand Smoke Exposure: No - Caffeine Use Caffeine Use: Reports: Coffee - Recreational Drug Use Recreational Drug Use: No - Living Situation & Occupation Living situation: Reports: , Extended Care Facility (Currently living at [facility]) Occupation: Retired H&P Review of Systems - Review of Systems: Review Of Systems: See Below General: Reports: Malaise, Weakness, Fatigue, Decreased Appetite HEENT: Reports: No Symptoms Pulmonary: Reports: No Symptoms Cardiovascular: Reports: No Symptoms Gastrointestinal: Reports: Abdominal Pain, Bloody Stool, Decreased Appetite Genitourinary: Reports: Frequency, Urgency Musculoskeletal: Reports: No Symptoms Skin: Reports: No Symptoms Psychiatric: Reports: Confusion Neurological: Reports: Dizziness, Difficulty Walking Hematologic/Lymphatic: Reports: No Symptoms Immunologic: Reports: No Symptoms Exam - Exam Exam: See Below - Vital Signs Vital Signs: Last Vital Signs Temp 36.3 C 04/22/17 21:18 Pulse 84 04/22/17 21:18 Resp 18 04/22/17 21:18 BP 130/64 04/22/17 21:18 Pulse Ox 97 04/22/17 20:30 - Exam Quality Assessment: Supplemental Oxygen General: Alert, Oriented, Cooperative HEENT: Conjunctiva Clear, Pupils Equal, Pupils Reactive, PERRLA Neck: Supple, Trachea Midline Lungs: Normal Respiratory Effort Cardiovascular: Regular Rate, Regular Rhythm GI/Abdominal Exam: Soft, No Organomegaly, Distended, Guarding (no), Rigid (no), Rebound (no), Tender, Abnormal Bowel Sounds (hyperactive) (Female) Exam: Deferred Rectal (Female) Exam: Deferred Back Exam: Normal Inspection Extremities: Normal Inspection Skin: Warm Neurological: Cranial Nerves Intact Neuro Extensive - Mental Status: Alert, Oriented x3, Other (hard of hearing, listens to TV on settin g of 48) Neuro Extensive - Motor, Sensory, Reflexes: CN II-XII Intact (except hearing), Normal Gait (not assessed) Psychiatric: Alert, Normal Affect, Normal Mood - Patient Data Result Diagrams: 04/24/17 13:15 04/24/17 06:02 *Q Meaningful Use (ADM) - VTE *Q VTE Criteria *Q: - Stroke *Q Stroke Criteria *Q: - AMI *Q AMI Criteria *Q: Problem List Initiated/Reviewed/Updated: Yes Orders Last 24hrs: Active Orders 24 hr Category Date Time Status Patient Status [ADT] Routine ADT 04/22/17 21:14 Active Activity as Tolerated [RC] .Routine Care 04/22/17 20:27 Active Antiembolic Devices [RC] PER UNIT ROUTINE Care 04/22/17 21:19 Ordered Notify Provider Consults [RC] ASDIRECTED Care 04/22/17 21:19 Ordered Vital Signs [RC] PER UNIT ROUTINE Care 04/22/17 20:26 Active Consult to Physician [CONS] Routine Cons 04/22/17 21:18 Ordered NPO Now [Nothing per Oral Now Diet] [DIET] Diet 04/23/17 Breakfast Active BASIC METABOLIC PANEL,BMP [CHEM] DAILY Lab 04/23/17 05:00 Ordered BASIC METABOLIC PANEL,BMP [CHEM] DAILY Lab 04/24/17 05:00 Ordered CBC WITH AUTO DIFF [HEME] DAILY Lab 04/23/17 05:00 Ordered CBC WITH AUTO DIFF [HEME] DAILY Lab 04/24/17 05:00 Ordered INR,PT,PROTHROMBIN TIME [COAG] DAILY Lab 04/23/17 05:00 Ordered INR,PT,PROTHROMBIN TIME [COAG] DAILY Lab 04/24/17 05:00 Ordered Acetaminophen [Tylenol] Med 04/22/17 20:25 Pending 650 mg PO Q4H PRN Benzonatate [Tessalon Perles] Med 04/22/17 20:25 Ordered 200 mg PO TID PRN Dronabinol [Marinol] Med 04/23/17 07:00 Ordered 2.5 mg PO TIDAC Furosemide [Lasix] Med 04/22/17 20:42 Once 20 mg IVPUSH NOW ONE KCl/Na Sulf,Bicarb,Cl/PEG 3351 [GoLytely] Med 04/22/17 21:17 Once 4,000 ml PO ONETIME ONE Magnesium Oxide Med 04/22/17 21:00 Ordered 400 mg PO BID Omeprazole Med 04/23/17 06:00 Ordered 20 mg PO BIDAC Sucralfate [Carafate] Med 04/22/17 22:00 Ordered 1 gm PO ACBED Thiamine [Vitamin B-1] Med 04/22/17 21:00 Ordered 100 mg PO BEDTIME atorvaSTATin Med 04/23/17 09:00 Ordered 20 mg PO DAILY YENY Hose [Antiembolic Hose] [OM.PC] Routine Oth 04/22/17 21:19 Ordered Medication Orders Acetaminophen (Tylenol) 650 mg PO Q4H PRN PRN Reason: Pain (Mild 1-3)/fever Benzonatate (Tessalon Perles) 200 mg PO TID PRN PRN Reason: Cough Dronabinol (Marinol) 2.5 mg PO TIDAC [facility] Furosemide (Lasix) 20 mg IVPUSH NOW ONE Stop: 04/22/17 20:43 Sodium Chloride (Normal Saline) 1,000 mls @ 150 mls/hr IV ASDIRECTED [facility] Last Admin: 04/22/17 17:22 Dose: 150 mls/hr Magnesium Oxide (Magnesium Oxide) 400 mg PO BID [facility] Non-Formulary Medication (Atorvastatin) 20 mg PO DAILY [facility] Non-Formulary Medication (Omeprazole) 20 mg PO BIDAC [facility] Sucralfate (Carafate) 1 gm PO ACBED [facility] Thiamine HCl (Vitamin B-1) 100 mg PO BEDTIME [facility] Assessment/Plan Comment:: Patient is being admitted for evaluation and management of recurrent GI bleed, 87 year old [facility] resident returns after three hours with symptomatic GI blood loss. POD 2, s/p EGD, see report of findings. Assessment/Plan: Acute: Failure To Thrive---improving - Recent URI/Bronchitis completed course - Decreased Appetite and Questionable New onset of Confusion/Memory Impairment - Continue appetite stimulants--appetite dramatically improved with addition of marinol Generalized Weakness, improving slowly - Started on 03-26-17; GI blood loss acutely to day with return after DC Moderate -Severe Memory Impairment - She seems to be at baseline now; Cognitive eval completed with moderate to severe cognitive impairment; supplements provided at DC GI Bleed/Grossly Positive - Lower GI prep ordered for colonoscopy - C. Diff test-negative - Iron panel: low transferrin level (liver function is normal; CBC is normal ; > other anemia) - Clinically and hemodynamically stable - Consulted Dr. Girard for lower GI evaluation CKD Stage 3, Stable Mild Hypokalemia--chronic, replace for K>4.0 Hypomagnesemia--replace for Mg>2.0 NPO except GI prep after midnight; MS telemetry admission; Gen surg notified, will proceed at 12 noon as scheduled. DNR/DNI
[2017-04-23] MEDS: Sucralfate Suspension 1 GM/10 ML Cup PO SCH ×5 (01:09→22:44)
[2017-04-23] MEDS: Magnesium Oxide 400 MG Tab PO SCH ×3 (01:09→22:44)
[2017-04-23] MEDS: Thiamine 100 MG Tab PO SCH ×2 (01:09→22:44)
[2017-04-23] MEDS: Sodium Chloride 0.9% 1,000 ML IV SCH ×2 (05:42→20:09)
[2017-04-23] MEDS ORDERED: Ondansetron 4 MG/2 ML SDV IVPUSH PRN (05:54)
[2017-04-23] MEDS: Pantoprazole 40 MG Tab.CR PO SCH ×2 (06:14→19:50)
[2017-04-23] MEDS: Dronabinol 2.5 MG Cap PO SCH (08:17)
[2017-04-23] MEDS: Simvastatin 20 MG Tab PO SCH (08:17)
--- NOTE | 2017-04-23 11:18 | PCM.CONSN ---
- General Info Date of Service: 04/23/17 - Patient Data Vitals - Most Recent: Last Vital Signs Temp 98.2 F 04/23/17 08:28 Pulse 70 04/23/17 08:28 Resp 16 04/23/17 08:28 BP 122/71 04/23/17 08:28 Pulse Ox 98 04/23/17 08:28 Weight - Most Recent: 76.748 kg I&O - Last 24 Hours: Intake & Output 04/22/17 04/23/17 04/23/17 23:59 07:59 15:59 Intake Total 360 1607 Balance 360 1607 Lab Results Last 24 Hours: Laboratory Results - last 24 hr 04/23/17 04/23/17 04/23/17 Range/Units 06:41 06:41 06:41 WBC 13.86 H (3.98-10.04) K/mm3 RBC 5.25 H (3.98-5.22) M/mm3 Hgb 15.0 (11.2-15.7) gm/L Hct 43.3 (34.1-44.9) % MCV 82.5 (79.4-94.8) fl MCH 28.6 (25.6-32.2) pg MCHC 34.6 (32.2-35.5) g/dl RDW Std Deviation 47.1 H (36.4-46.3) fL Plt Count 182 (182-369) K/mm3 MPV 10.4 (9.4-12.3) fl Neut % (Auto) 75.8 H (34.0-71.1) % Lymph % (Auto) 13.5 L (19.3-51.7) % Porter % (Auto) 10.1 (4.7-12.5) % Eos % (Auto) 0.1 L (0.7-5.8) Baso % (Auto) 0.1 (0.1-1.2) % Neut # (Auto) 10.51 H (1.56-6.13) K/mm3 Lymph # (Auto) 1.87 (1.18-3.74) K/mm3 Porter # (Auto) 1.40 H (0.24-0.36) K/mm3 Eos # (Auto) 0.01 L (0.04-0.36) K/mm3 Baso # (Auto) 0.01 (0.01-0.08) K/mm3 PT 10.9 (8.0-13.0) SECONDS INR 1.00 Sodium 135 L (136-145) mEq/L Potassium 3.1 L (3.5-5.1) mEq/L Chloride 101 (98-107) mEq/L Carbon Dioxide 23 (21-32) mEq/L Anion Gap 14.1 (5-15) BUN 15 (7-18) mg/dL Creatinine 1.4 H (0.55-1.02) mg/dL Est Cr Clr Drug Dosing 26.50 mL/min Estimated GFR (MDRD) 36 (>60) mL/min BUN/Creatinine Ratio 10.7 L (14-18) Glucose 156 H (83-115) mg/dL Calcium 8.5 (8.5-10.1) mg/dL Med Orders - Current: Current Medications Acetaminophen (Tylenol) 650 mg PO Q4H PRN PRN Reason: Pain (Mild 1-3)/fever Benzonatate (Tessalon Perles) 200 mg PO TID PRN PRN Reason: Cough Dronabinol (Marinol) 2.5 mg PO TIDAC [facility] Last Admin: 04/23/17 08:17 Dose: 2.5 mg Sodium Chloride (Normal Saline) 1,000 mls @ 150 mls/hr IV ASDIRECTED [facility] Last Admin: 04/23/17 05:42 Dose: 150 mls/hr Magnesium Oxide (Magnesium Oxide) 400 mg PO BID [facility] Last Admin: 04/23/17 08:16 Dose: 400 mg Ondansetron HCl (Zofran) 4 mg IVPUSH Q4H PRN PRN Reason: Nausea/Vomiting Last Admin: 04/23/17 06:17 Dose: 4 mg Pantoprazole Sodium (Protonix) 40 mg PO BIDAC [facility] Last Admin: 04/23/17 06:14 Dose: 40 mg Simvastatin (Zocor) 20 mg PO DAILY [facility] Last Admin: 04/23/17 08:17 Dose: 20 mg Sucralfate (Carafate) 1 gm PO ACBED [facility] Last Admin: 04/23/17 06:14 Dose: 1 gm Thiamine HCl (Vitamin B-1) 100 mg PO BEDTIME [facility] Last Admin: 04/23/17 01:09 Dose: Not Given Discontinued Medications Furosemide (Lasix) 20 mg IVPUSH NOW ONE Stop: 04/22/17 20:43 Last Admin: 04/22/17 22:49 Dose: 20 mg Polyethylene Glycol/Electrolytes (Golytely) 4,000 ml PO ONETIME ONE Stop: 04/22/17 21:18 Last Admin: 04/22/17 22:24 Dose: 4,000 ml Consult PN Assessment/Plan Procedures: Procedures ASSAY OF FOLIC ACID SERUM (04/17/17) ASSAY OF FREE THYROXINE (04/17/17) ASSAY OF IRON (04/17/17) ASSAY OF MAGNESIUM (04/17/17) ASSAY OF NATRIURETIC PEPTIDE (04/17/17) ASSAY OF TRANSFERRIN (04/17/17) ASSAY THYROID STIM HORMONE (04/17/17) C DIFF AMPLIFIED PROBE (04/17/17) C-REACTIVE PROTEIN (04/17/17) COGNITIVE TEST BY HC PRO (04/17/17) COMPLETE CBC W/AUTO DIFF WBC (04/17/17) COMPREHEN METABOLIC PANEL (04/17/17) CT HEAD/BRAIN W/O DYE (04/17/17) DRUG TEST PRSMV INSTRMNT (04/17/17) ELECTROCARDIOGRAM TRACING (04/17/17) EMERGENCY DEPT VISIT (04/17/17) GAIT TRAINING THERAPY (04/17/17) HEMATOCRIT (04/17/17) HEMOGLOBIN (04/17/17) HYDRATION IV INFUSION INIT (04/17/17) METABOLIC PANEL TOTAL CA (04/17/17) MR-STAPH DNA AMP PROBE (04/17/17) OT EVAL MOD COMPLEX 45 MIN (04/17/17) PROTHROMBIN TIME (04/17/17) PT EVAL LOW COMPLEX 20 MIN (04/17/17) RBC SED RATE AUTOMATED (04/17/17) ROUTINE VENIPUNCTURE (04/17/17) SELF CARE MNGMENT TRAINING (04/17/17) SPECIAL STAINS GROUP 1 (09/05/13) SYPHILIS TEST NON-TREP QUAL (04/17/17) THERAPEUTIC ACTIVITIES (04/17/17) THERAPEUTIC EXERCISES (04/17/17) THROMBOPLASTIN TIME PARTIAL (04/17/17) TISSUE EXAM BY PATHOLOGIST (09/05/13) URINALYSIS AUTO W/SCOPE (04/17/17) VITAMIN B-12 (04/17/17) VITAMIN D 25 HYDROXY (04/17/17) X-RAY EXAM CHEST 2 VIEWS (04/17/17) Problem List Initiated/Reviewed/Updated: Yes My Orders Last 24 Hours: surgical consulst dictated MARGUERITE
--- NOTE | 2017-04-23 11:48 | PCM.PREANE ---
Preanesthetic Assessment - Anesthesia/Transfusion/Family Hx Anesthesia History: Prior Anesthesia Without Reaction Family History of Anesthesia Reaction: No Transfusion History: Prior Transfusion Without Reaction Intubation History: Unknown - Review of Systems General: Weakness, Fatigue Pulmonary: Shortness of Breath, Cough Cardiovascular: No Symptoms (HTN/chronic hypokalemia/CHF) Gastrointestinal: Abdominal Pain, Decreased Appetite, Nausea Neurological: Confusion, Weakness Other: Reports: None (CRF stage 3) - Physical Assessment NPO Status Date: 04/22/17 NPO Status Time: 21:30 Pulse: 70 O2 Sat by Pulse Oximetry: 98 Respiratory Rate: 16 Blood Pressure: 122/71 Temperature: 36.8 C Vital Signs: Last Vital Signs Temp 36.8 C 04/23/17 08:28 Pulse 70 04/23/17 08:28 Resp 16 04/23/17 08:28 BP 122/71 04/23/17 08:28 Pulse Ox 98 04/23/17 08:28 Height: 1.68 m Weight: 76.748 kg ASA Class: 3 Mental Status: Alert & Oriented x3 Airway Class: Mallampati = 2 Dentition: Reports: Normal Dentition, Caries Thyro-Mental Finger Breadths: 3 Mouth Opening Finger Breadths: 3 ROM/Head Extension: Full Lungs: Clear to Auscultation, Normal Respiratory Effort Cardiovascular: Regular Rate, Regular Rhythm, No Murmurs - Lab Values: Laboratory Last Values WBC 13.86 K/mm3 (3.98-10.04) H 04/23/17 06:41 RBC 5.25 M/mm3 (3.98-5.22) H 04/23/17 06:41 Hgb 15.0 gm/L (11.2-15.7) 04/23/17 06:41 Hct 43.3 % (34.1-44.9) 04/23/17 06:41 MCV 82.5 fl (79.4-94.8) 04/23/17 06:41 MCH 28.6 pg (25.6-32.2) 04/23/17 06:41 MCHC 34.6 g/dl (32.2-35.5) 04/23/17 06:41 RDW Std Deviation 47.1 fL (36.4-46.3) H 04/23/17 06:41 Plt Count 182 K/mm3 (182-369) 04/23/17 06:41 MPV 10.4 fl (9.4-12.3) 04/23/17 06:41 Neut % (Auto) 75.8 % (34.0-71.1) H 04/23/17 06:41 Lymph % (Auto) 13.5 % (19.3-51.7) L 04/23/17 06:41 Gage % (Auto) 10.1 % (4.7-12.5) 04/23/17 06:41 Eos % (Auto) 0.1 (0.7-5.8) L 04/23/17 06:41 Baso % (Auto) 0.1 % (0.1-1.2) 04/23/17 06:41 Neut # (Auto) 10.51 K/mm3 (1.56-6.13) H 04/23/17 06:41 Lymph # (Auto) 1.87 K/mm3 (1.18-3.74) 04/23/17 06:41 Gage # (Auto) 1.40 K/mm3 (0.24-0.36) H 04/23/17 06:41 Eos # (Auto) 0.01 K/mm3 (0.04-0.36) L 04/23/17 06:41 Baso # (Auto) 0.01 K/mm3 (0.01-0.08) 04/23/17 06:41 Neutrophils % (Manual) 85 % (40-60) H 04/22/17 17:00 Band Neutrophils % 1 % (0-10) 04/22/17 17:00 Lymphocytes % (Manual) 13 % (20-40) L 04/22/17 17:00 Atypical Lymphs % 0 % 04/22/17 17:00 Monocytes % (Manual) 1 % (2-10) L 04/22/17 17:00 Eosinophils % (Manual) 0 % (0.7-5.8) L 04/22/17 17:00 Basophils % (Manual) 0 (0.1-1.2) L 04/22/17 17:00 Toxic Granulation 1+ slight 04/22/17 17:00 Platelet Estimate Adequate 04/22/17 17:00 RBC Morph Comment Normal 04/22/17 17:00 PT 10.9 SECONDS (8.0-13.0) 04/23/17 06:41 INR 1.00 04/23/17 06:41 APTT 33 SECONDS (22-36) 04/22/17 17:00 Sodium 135 mEq/L (136-145) L 04/23/17 06:41 Potassium 3.1 mEq/L (3.5-5.1) L 04/23/17 06:41 Chloride 101 mEq/L (98-107) 04/23/17 06:41 Carbon Dioxide 23 mEq/L (21-32) 04/23/17 06:41 Anion Gap 14.1 (5-15) 04/23/17 06:41 BUN 15 mg/dL (7-18) 04/23/17 06:41 Creatinine 1.4 mg/dL (0.55-1.02) H 04/23/17 06:41 Est Cr Clr Drug Dosing 26.50 mL/min 04/23/17 06:41 Estimated GFR (MDRD) 36 mL/min (>60) 04/23/17 06:41 BUN/Creatinine Ratio 10.7 (14-18) L 04/23/17 06:41 Glucose 156 mg/dL (83-115) H 04/23/17 06:41 Calcium 8.5 mg/dL (8.5-10.1) 04/23/17 06:41 Total Bilirubin 0.5 mg/dL (0.2-1.0) 04/22/17 17:00 AST 26 U/L (15-37) 04/22/17 17:00 ALT 26 U/L (14-59) 04/22/17 17:00 Alkaline Phosphatase 96 U/L (46-116) 04/22/17 17:00 CK-MB (CK-2) 1.8 ng/ml (0-3.6) 04/22/17 17:00 Troponin I < 0.017 ng/mL (0.00-0.056) 04/22/17 17:00 C-Reactive Protein 0.7 mg/dL (<1.0) 04/22/17 17:00 NT-Pro-B Natriuret Pep 1016 pg/mL (0-450) H 04/22/17 17:00 Total Protein 7.3 g/dl (6.4-8.2) 04/22/17 17:00 Albumin 3.0 g/dl (3.4-5.0) L 04/22/17 17:00 Globulin 4.3 gm/dL 04/22/17 17:00 Albumin/Globulin Ratio 0.7 (1-2) L 04/22/17 17:00 Urine Color Yellow (Yellow) 04/22/17 16:29 Urine Appearance Clear (Clear) 04/22/17 16:29 Urine pH 6.0 (5.0-8.0) 04/22/17 16:29 Ur Specific [place] 1.020 (1.005-1.030) 04/22/17 16:29 Urine Protein 1+ (Negative) H 04/22/17 16:29 Urine Glucose (UA) Negative (Negative) 04/22/17 16:29 Urine Ketones Trace (Negative) H 04/22/17 16:29 Urine Occult Blood Negative (Negative) 04/22/17 16:29 Urine Nitrite Negative (Negative) 04/22/17 16:29 Urine Bilirubin 1+ (Negative) H 04/22/17 16:29 Urine Urobilinogen 1.0 (0.2-1.0) 04/22/17 16:29 Ur Leukocyte Esterase Negative (Negative) 04/22/17 16:29 Urine RBC 0-5 /hpf (0-5) 04/22/17 16:29 Urine WBC 0-5 /hpf (0-5) 04/22/17 16:29 Ur Epithelial Cells 0-5 /hpf (0-5) 04/22/17 16:29 Urine Bacteria Many /hpf (FEW) H 04/22/17 16:29 Hyaline Casts 20-30 /lpf (0-5) H 04/22/17 16:29 Urine Mucus Few /hpf (FEW) 04/22/17 16:29 Blood Type O POSITIVE 04/22/17 17:00 Gel Antibody Screen Negative 04/22/17 17:00 Crossmatch See Detail 04/22/17 17:00 Above labs reviewed and noted and within acceptable ranges to proceed with scheduled procedure. - Imaging/EKG Impressions: EKG: SR rate=74, diffuse t wave flattening. - Allergies Allergies/Adverse Reactions: Allergies Allergy/AdvReac Type Severity Reaction Status Date / Time No Known Allergies Allergy Verified 04/22/17 16:34 - Anesthesia Plan Pre-Op Medication Ordered: None - Acknowledgements Anesthesia Type Planned: MAC Pt an Appropriate Candidate for the Planned Anesthesia: Yes Alternatives and Risks of Anesthesia Discussed w Pt/Guardian: Yes Pt/Guardian Understands and Agrees with Anesthesia Plan: Yes PreAnesthesia Questionnaire HEENT History: Reports: Impaired Vision Cardiovascular History: Reports: High Cholesterol, Hypertension Respiratory History: Reports: None Gastrointestinal History: Reports: Other (See Below) Other Gastrointestinal History: stomach ulcers; current GI bleed Genitourinary History: Reports: None WAGE HAND History: Reports: Other OB/BYN History: Hysterectomy-young- dosn't remember when Musculoskeletal History: Reports: Fracture Neurological History: Reports: Other (See Below) Other Neuro History: confusion Psychiatric History: Reports: None Hematologic History: Reports: None Immunologic History: Reports: None Oncologic (Cancer) History: Reports: None Dermatologic History: Reports: None - Infectious Disease History Infectious Disease History: Reports: Chicken Pox - Past Surgical History HEENT Surgical History: Reports: Cataract Surgery Female Surgical History: Reports: Hysterectomy - SUBSTANCE USE Smoking Status *Q: Never Smoker Second Hand Smoke Exposure: No Recreational Drug Use History: No - HOME MEDS Home Medications: Home Meds Alendronate [Fosamax] 70 mg PO WEEKLY 04/17/17 [History] Benzonatate [Tessalon Perle] 200 mg PO TID PRN 04/17/17 [History] Potassium Chloride 10 meq PO DAILY 04/17/17 [History] Triamterene/Hydrochlorothiazid [Triamterene-HCTZ 37.5-25 MG] 1 tab PO DAILY 05/30 [History] amLODIPine [Norvasc] 10 mg PO DAILY 04/17/17 [History] atorvaSTATin [Lipitor] 20 mg PO DAILY 04/17/17 [History] Acetaminophen [Tylenol] 650 mg PO Q4H PRN tablet 04/22/17 [Rx] Docusate Sodium [Colace] 100 mg PO BID PRN cap 04/22/17 [Rx] Dronabinol [Marinol] 2.5 mg PO TIDAC #60 cap 04/22/17 [Rx] Ergocalciferol (Vitamin D2) [Vitamin D2] 50,000 units PO Q7D #4 cap 04/22/17 [Rx ] Magnesium Oxide 400 mg PO BID #60 tab 04/22/17 [Rx] Omeprazole 20 mg PO BIDAC #60 cap.sr 04/22/17 [Rx] Sucralfate [Carafate] 1 gm PO ACBED #1 bottle 04/22/17 [Rx] Thiamine [Vitamin B-1] 100 mg PO BEDTIME #30 tablet 04/22/17 [Rx] - CURRENT (IN HOUSE) MEDS Current Meds: Current Medications Acetaminophen (Tylenol) 650 mg PO Q4H PRN PRN Reason: Pain (Mild 1-3)/fever Benzonatate (Tessalon Perles) 200 mg PO TID PRN PRN Reason: Cough Dronabinol (Marinol) 2.5 mg PO TIDAC [facility] Last Admin: 04/23/17 08:17 Dose: 2.5 mg Sodium Chloride (Normal Saline) 1,000 mls @ 150 mls/hr IV ASDIRECTED [facility] Last Admin: 04/23/17 05:42 Dose: 150 mls/hr Magnesium Oxide (Magnesium Oxide) 400 mg PO BID [facility] Last Admin: 04/23/17 08:16 Dose: 400 mg Ondansetron HCl (Zofran) 4 mg IVPUSH Q4H PRN PRN Reason: Nausea/Vomiting Last Admin: 04/23/17 06:17 Dose: 4 mg Pantoprazole Sodium (Protonix) 40 mg PO BIDAC [facility] Last Admin: 04/23/17 06:14 Dose: 40 mg Simvastatin (Zocor) 20 mg PO DAILY [facility] Last Admin: 04/23/17 08:17 Dose: 20 mg Sucralfate (Carafate) 1 gm PO ACBED [facility] Last Admin: 04/23/17 06:14 Dose: 1 gm Thiamine HCl (Vitamin B-1) 100 mg PO BEDTIME [facility] Last Admin: 04/23/17 01:09 Dose: Not Given Discontinued Medications Furosemide (Lasix) 20 mg IVPUSH NOW ONE Stop: 04/22/17 20:43 Last Admin: 04/22/17 22:49 Dose: 20 mg Polyethylene Glycol/Electrolytes (Golytely) 4,000 ml PO ONETIME ONE Stop: 04/22/17 21:18 Last Admin: 04/22/17 22:24 Dose: 4,000 ml
[2017-04-23] MEDS ORDERED: Lidocaine 1% 4 ML ONE (12:23)
[2017-04-23] MEDS ORDERED: Propofol 200 MG/20 ML SDV ONE (12:23)
[2017-04-23] MEDS ORDERED: fentaNYL 100 MCG/2 ML SDV ONE (12:24)
[2017-04-23] MEDS ORDERED: Lactated Ringers 1,000 ML ONE (12:25)
--- NOTE | 2017-04-23 17:38 | PCM.PN ---
- General Info Date of Service: 04/23/17 Functional Status: Reports: Other (NPO) - Review of Systems General: Reports: Weakness HEENT: Reports: No Symptoms Pulmonary: Reports: No Symptoms Cardiovascular: Reports: No Symptoms Gastrointestinal: Reports: Abdominal Pain Genitourinary: Reports: No Symptoms Musculoskeletal: Reports: No Symptoms Skin: Reports: No Symptoms Neurological: Reports: No Symptoms Psychiatric: Reports: No Symptoms - Patient Data Vitals - Most Recent: Last Vital Signs Temp 36.7 C 04/23/17 12:30 Pulse 68 04/23/17 16:02 Resp 22 H 04/23/17 12:30 BP 131/58 L 04/23/17 16:02 Pulse Ox 96 04/23/17 16:02 Weight - Most Recent: 76.748 kg I&O - Last 24 Hours: Intake & Output 04/23/17 04/23/17 04/23/17 06:59 14:59 22:59 Intake Total 1607 1200 Output Total 800 Balance 1607 400 Lab Results Last 24 Hours: Laboratory Results - last 24 hr 04/23/17 04/23/17 04/23/17 Range/Units 06:41 06:41 06:41 WBC 13.86 H (3.98-10.04) K/mm3 RBC 5.25 H (3.98-5.22) M/mm3 Hgb 15.0 (11.2-15.7) gm/L Hct 43.3 (34.1-44.9) % MCV 82.5 (79.4-94.8) fl MCH 28.6 (25.6-32.2) pg MCHC 34.6 (32.2-35.5) g/dl RDW Std Deviation 47.1 H (36.4-46.3) fL Plt Count 182 (182-369) K/mm3 MPV 10.4 (9.4-12.3) fl Neut % (Auto) 75.8 H (34.0-71.1) % Lymph % (Auto) 13.5 L (19.3-51.7) % [place] % (Auto) 10.1 (4.7-12.5) % Eos % (Auto) 0.1 L (0.7-5.8) Baso % (Auto) 0.1 (0.1-1.2) % Neut # (Auto) 10.51 H (1.56-6.13) K/mm3 Lymph # (Auto) 1.87 (1.18-3.74) K/mm3 [place] # (Auto) 1.40 H (0.24-0.36) K/mm3 Eos # (Auto) 0.01 L (0.04-0.36) K/mm3 Baso # (Auto) 0.01 (0.01-0.08) K/mm3 PT 10.9 (8.0-13.0) SECONDS INR 1.00 Sodium 135 L (136-145) mEq/L Potassium 3.1 L (3.5-5.1) mEq/L Chloride 101 (98-107) mEq/L Carbon Dioxide 23 (21-32) mEq/L Anion Gap 14.1 (5-15) BUN 15 (7-18) mg/dL Creatinine 1.4 H (0.55-1.02) mg/dL Est Cr Clr Drug Dosing 26.50 mL/min Estimated GFR (MDRD) 36 (>60) mL/min BUN/Creatinine Ratio 10.7 L (14-18) Glucose 156 H (83-115) mg/dL Calcium 8.5 (8.5-10.1) mg/dL C.difficile 027-NAP1-B1 C. difficile Tox (PCR) 04/23/17 Range/Units 13:30 WBC (3.98-10.04) K/mm3 RBC (3.98-5.22) M/mm3 Hgb (11.2-15.7) gm/L Hct (34.1-44.9) % MCV (79.4-94.8) fl MCH (25.6-32.2) pg MCHC (32.2-35.5) g/dl RDW Std Deviation (36.4-46.3) fL Plt Count (182-369) K/mm3 MPV (9.4-12.3) fl Neut % (Auto) (34.0-71.1) % Lymph % (Auto) (19.3-51.7) % [place] % (Auto) (4.7-12.5) % Eos % (Auto) (0.7-5.8) Baso % (Auto) (0.1-1.2) % Neut # (Auto) (1.56-6.13) K/mm3 Lymph # (Auto) (1.18-3.74) K/mm3 [place] # (Auto) (0.24-0.36) K/mm3 Eos # (Auto) (0.04-0.36) K/mm3 Baso # (Auto) (0.01-0.08) K/mm3 PT (8.0-13.0) SECONDS INR Sodium (136-145) mEq/L Potassium (3.5-5.1) mEq/L Chloride (98-107) mEq/L Carbon Dioxide (21-32) mEq/L Anion Gap (5-15) BUN (7-18) mg/dL Creatinine (0.55-1.02) mg/dL Est Cr Clr Drug Dosing mL/min Estimated GFR (MDRD) (>60) mL/min BUN/Creatinine Ratio (14-18) Glucose (83-115) mg/dL Calcium (8.5-10.1) mg/dL C.difficile 027-NAP1-B1 Presumptive negative C. difficile Tox (PCR) Negative Ezekiel Results Last 24 Hours: Microbiology 04/23/17 13:21 Stool for WBCs - Final Stool / Feces Med Orders - Current: Current Medications Acetaminophen (Tylenol) 650 mg PO Q4H PRN PRN Reason: Pain (Mild 1-3)/fever Benzonatate (Tessalon Perles) 200 mg PO TID PRN PRN Reason: Cough Dronabinol (Marinol) 2.5 mg PO TIDAC [facility] Last Admin: 04/23/17 08:17 Dose: 2.5 mg Sodium Chloride (Normal Saline) 1,000 mls @ 150 mls/hr IV ASDIRECTED [facility] Last Admin: 04/23/17 05:42 Dose: 150 mls/hr Magnesium Oxide (Magnesium Oxide) 400 mg PO BID [facility] Last Admin: 04/23/17 08:16 Dose: 400 mg Ondansetron HCl (Zofran) 4 mg IVPUSH Q4H PRN PRN Reason: Nausea/Vomiting Last Admin: 04/23/17 06:17 Dose: 4 mg Pantoprazole Sodium (Protonix) 40 mg PO BIDAC [facility] Last Admin: 04/23/17 06:14 Dose: 40 mg Simvastatin (Zocor) 20 mg PO DAILY [facility] Last Admin: 04/23/17 08:17 Dose: 20 mg Sucralfate (Carafate) 1 gm PO ACBED [facility] Last Admin: 04/23/17 13:38 Dose: Not Given Thiamine HCl (Vitamin B-1) 100 mg PO BEDTIME [facility] Last Admin: 04/23/17 01:09 Dose: Not Given Discontinued Medications Fentanyl (Sublimaze) Confirm Administered Dose 100 mcg .ROUTE .STK-MED ONE Stop: 04/23/17 12:25 Furosemide (Lasix) 20 mg IVPUSH NOW ONE Stop: 04/22/17 20:43 Last Admin: 04/22/17 22:49 Dose: 20 mg Lidocaine HCl (Xylocaine-Mpf 1%) Confirm Administered Dose 4 mls @ as directed .ROUTE .STK-MED ONE Stop: 04/23/17 12:24 Lactated Ringer's (Ringers, Lactated) Confirm Administered Dose 1,000 mls @ as directed .ROUTE .STK-MED ONE Stop: 04/23/17 12:26 Polyethylene Glycol/Electrolytes (Golytely) 4,000 ml PO ONETIME ONE Stop: 04/22/17 21:18 Last Admin: 04/22/17 22:24 Dose: 4,000 ml Propofol (Diprivan 20 Ml) Confirm Administered Dose 200 mg .ROUTE .STK-MED ONE Stop: 04/23/17 12:24 - Exam Quality Assessment: Supplemental Oxygen, DVT Prophylaxis General: Alert, Oriented, Cooperative HEENT: Pupils Equal, Pupils Reactive, EOMI Neck: Trachea Midline Lungs: Normal Respiratory Effort Cardiovascular: Regular Rate, Regular Rhythm GI/Abdominal Exam: Normal Bowel Sounds, Soft, No Organomegaly, No Distention, Tender (Female) Exam: Deferred Back Exam: Normal Inspection Extremities: Normal Inspection Skin: Warm Neurological: No New Focal Deficit, Normal Speech Psy/Mental Status: Alert, Normal Affect, Normal Mood - Problem List Review Problem List Initiated/Reviewed/Updated: Yes - My Orders Last 24 Hours: My Active Orders 04/22/17 20:25 Acetaminophen [Tylenol] 650 mg PO Q4H PRN Benzonatate [Tessalon Perles] 200 mg PO TID PRN 04/22/17 20:26 Vital Signs [RC] 03,09,15,21 04/22/17 20:27 Activity as Tolerated [RC] QSHIFT 04/22/17 21:00 Magnesium Oxide 400 mg PO BID Thiamine [Vitamin B-1] 100 mg PO BEDTIME 04/22/17 21:18 Consult to Physician [CONS] Routine 04/22/17 21:19 Antiembolic Devices [RC] Notify Provider Consults [RC] ASDIRECTED YENY Hose [Antiembolic Hose] [OM.PC] Routine 04/22/17 22:00 Sucralfate [Carafate] 1 gm PO ACBED 04/22/17 22:12 Resuscitation Status Routine 04/23/17 05:54 Ondansetron [Zofran] 4 mg IVPUSH Q4H PRN 04/23/17 06:00 Pantoprazole [ProTONIX] 40 mg PO BIDAC 04/23/17 07:00 Dronabinol [Marinol] 2.5 mg PO TIDAC 04/23/17 09:00 Simvastatin [Zocor] 20 mg PO DAILY 04/23/17 Breakfast NPO Now [Nothing per Oral Now Diet] [DIET] 04/24/17 05:00 BASIC METABOLIC PANEL,BMP [CHEM] DAILY CBC WITH AUTO DIFF [HEME] DAILY INR,PT,PROTHROMBIN TIME [COAG] DAILY - Plan Plan:: POD 3, EGD; pre procedure-->colonoscopy scheduled Assessment/Plan: Acute: Failure To Thrive---improving - Recent URI/Bronchitis completed course - Decreased Appetite and Questionable New onset of Confusion/Memory Impairment - Continue appetite stimulants--appetite dramatically improved with addition of marinol Generalized Weakness, improving slowly - Started on 03-26-17; GI blood loss acutely to day with return after DC Moderate -Severe Memory Impairment - She seems to be at baseline now; Cognitive eval completed with moderate to severe cognitive impairment; supplements provided at DC GI Bleed/Grossly Positive - Lower GI prep completed for colonoscopy - C. Diff test-negative - Iron panel: low transferrin level (liver function is normal; CBC is normal ; > other anemia) - Clinically and hemodynamically stable - Consulted Dr. Girard for lower GI evaluation CKD Stage 3, Stable Mild Hypokalemia--chronic, replace for K>4.0 Hypomagnesemia--replace for Mg>2.0 DNR/DNI
[2017-04-24] MEDS: Pantoprazole 40 MG Tab.CR PO SCH ×2 (06:14→17:16)
[2017-04-24] MEDS: Sucralfate Suspension 1 GM/10 ML Cup PO SCH ×4 (06:15→21:10)
[2017-04-24] MEDS: Simvastatin 20 MG Tab PO SCH (08:21)
[2017-04-24] MEDS: Magnesium Oxide 400 MG Tab PO SCH ×2 (08:21→21:12)
[2017-04-24] MEDS: Potassium Chloride 20 MEQ Tab.ER PO SCH ×2 (09:42→21:07)
--- NOTE | 2017-04-24 14:37 | PCM.PN ---
- General Info Date of Service: 04/24/17 Functional Status: Reports: Tolerating Diet - Review of Systems General: Reports: No Symptoms HEENT: Reports: No Symptoms Pulmonary: Reports: No Symptoms Cardiovascular: Reports: No Symptoms Gastrointestinal: Reports: No Symptoms Genitourinary: Reports: No Symptoms Musculoskeletal: Reports: No Symptoms Skin: Reports: No Symptoms Neurological: Reports: No Symptoms Psychiatric: Reports: No Symptoms - Patient Data Vitals - Most Recent: Last Vital Signs Temp 37.1 C 04/24/17 08:13 Pulse 69 04/24/17 11:59 Resp 16 04/24/17 11:59 BP 120/78 04/24/17 11:59 Pulse Ox 94 L 04/24/17 11:59 Weight - Most Recent: 78.335 kg I&O - Last 24 Hours: Intake & Output 04/23/17 04/24/17 04/24/17 22:59 06:59 14:59 Intake Total 1200 1377 120 Output Total 800 300 Balance 400 1077 120 Lab Results Last 24 Hours: Laboratory Results - last 24 hr 04/23/17 04/24/17 04/24/17 Range/Units 13:30 06:02 06:02 WBC 14.21 H (3.98-10.04) K/mm3 RBC 4.70 (3.98-5.22) M/mm3 Hgb 13.6 (11.2-15.7) gm/L Hct 39.3 (34.1-44.9) % MCV 83.6 (79.4-94.8) fl MCH 28.9 (25.6-32.2) pg MCHC 34.6 (32.2-35.5) g/dl RDW Std Deviation 46.9 H (36.4-46.3) fL Plt Count 78 L (182-369) K/mm3 MPV 10.3 (9.4-12.3) fl Neut % (Auto) 72.3 H (34.0-71.1) % Lymph % (Auto) 17.4 L (19.3-51.7) % [place] % (Auto) 8.4 (4.7-12.5) % Eos % (Auto) 1.4 (0.7-5.8) Baso % (Auto) 0.2 (0.1-1.2) % Neut # (Auto) 10.27 H (1.56-6.13) K/mm3 Lymph # (Auto) 2.47 (1.18-3.74) K/mm3 [place] # (Auto) 1.20 H (0.24-0.36) K/mm3 Eos # (Auto) 0.20 (0.04-0.36) K/mm3 Baso # (Auto) 0.03 (0.01-0.08) K/mm3 Manual Slide Review Abnormal smear PT 12.7 (8.0-13.0) SECONDS INR 1.15 Sodium (136-145) mEq/L Potassium (3.5-5.1) mEq/L Chloride (98-107) mEq/L Carbon Dioxide (21-32) mEq/L Anion Gap (5-15) BUN (7-18) mg/dL Creatinine (0.55-1.02) mg/dL Est Cr Clr Drug Dosing mL/min Estimated GFR (MDRD) (>60) mL/min BUN/Creatinine Ratio (14-18) Glucose (83-115) mg/dL Calcium (8.5-10.1) mg/dL C.difficile 027-NAP1-B1 Presumptive negative C. difficile Tox (PCR) Negative 04/24/17 04/24/17 Range/Units 06:02 13:15 WBC 14.15 H (3.98-10.04) K/mm3 RBC 4.47 (3.98-5.22) M/mm3 Hgb 13.0 (11.2-15.7) gm/L Hct 37.6 (34.1-44.9) % MCV 84.1 (79.4-94.8) fl MCH 29.1 (25.6-32.2) pg MCHC 34.6 (32.2-35.5) g/dl RDW Std Deviation 46.4 H (36.4-46.3) fL Plt Count 182 (182-369) K/mm3 MPV 10.1 (9.4-12.3) fl Neut % (Auto) 73.2 H (34.0-71.1) % Lymph % (Auto) 16.7 L (19.3-51.7) % [place] % (Auto) 8.5 (4.7-12.5) % Eos % (Auto) 1.2 (0.7-5.8) Baso % (Auto) 0.1 (0.1-1.2) % Neut # (Auto) 10.35 H (1.56-6.13) K/mm3 Lymph # (Auto) 2.37 (1.18-3.74) K/mm3 [place] # (Auto) 1.20 H (0.24-0.36) K/mm3 Eos # (Auto) 0.17 (0.04-0.36) K/mm3 Baso # (Auto) 0.02 (0.01-0.08) K/mm3 Manual Slide Review PT (8.0-13.0) SECONDS INR Sodium 137 (136-145) mEq/L Potassium 2.6 L (3.5-5.1) mEq/L Chloride 103 (98-107) mEq/L Carbon Dioxide 25 (21-32) mEq/L Anion Gap 11.6 (5-15) BUN 11 (7-18) mg/dL Creatinine 1.1 H (0.55-1.02) mg/dL Est Cr Clr Drug Dosing 33.73 mL/min Estimated GFR (MDRD) 47 (>60) mL/min BUN/Creatinine Ratio 10.0 L (14-18) Glucose 103 (83-115) mg/dL Calcium 7.6 L (8.5-10.1) mg/dL C.difficile 027-NAP1-B1 C. difficile Tox (PCR) Ezekiel Results Last 24 Hours: Microbiology 04/23/17 13:21 Stool for WBCs - Final Stool / Feces Med Orders - Current: Current Medications Acetaminophen (Tylenol) 650 mg PO Q4H PRN PRN Reason: Pain (Mild 1-3)/fever Benzonatate (Tessalon Perles) 200 mg PO TID PRN PRN Reason: Cough Dronabinol (Marinol) 2.5 mg PO TIDAC [facility] Last Admin: 04/23/17 08:17 Dose: 2.5 mg Magnesium Oxide (Magnesium Oxide) 400 mg PO BID [facility] Last Admin: 04/24/17 08:21 Dose: 400 mg Ondansetron HCl (Zofran) 4 mg IVPUSH Q4H PRN PRN Reason: Nausea/Vomiting Last Admin: 04/23/17 06:17 Dose: 4 mg Pantoprazole Sodium (Protonix) 40 mg PO BIDAC [facility] Last Admin: 04/24/17 06:14 Dose: 40 mg Potassium Chloride (Klor-Con M20) 40 meq PO BID [facility] Stop: 04/26/17 21:01 Last Admin: 04/24/17 09:42 Dose: 40 meq Simvastatin (Zocor) 20 mg PO DAILY [facility] Last Admin: 04/24/17 08:21 Dose: 20 mg Sucralfate (Carafate) 1 gm PO ACBED [facility] Last Admin: 04/24/17 10:27 Dose: 1 gm Thiamine HCl (Vitamin B-1) 100 mg PO BEDTIME [facility] Last Admin: 04/23/17 22:44 Dose: 100 mg Discontinued Medications Fentanyl (Sublimaze) Confirm Administered Dose 100 mcg .ROUTE .STK-MED ONE Stop: 04/23/17 12:25 Furosemide (Lasix) 20 mg IVPUSH NOW ONE Stop: 04/22/17 20:43 Last Admin: 04/22/17 22:49 Dose: 20 mg Sodium Chloride (Normal Saline) 1,000 mls @ 150 mls/hr IV ASDIRECTED [facility] Last Admin: 04/23/17 20:09 Dose: 150 mls/hr Lidocaine HCl (Xylocaine-Mpf 1%) Confirm Administered Dose 4 mls @ as directed .ROUTE .STK-MED ONE Stop: 04/23/17 12:24 Lactated Ringer's (Ringers, Lactated) Confirm Administered Dose 1,000 mls @ as directed .ROUTE .STK-MED ONE Stop: 04/23/17 12:26 Polyethylene Glycol/Electrolytes (Golytely) 4,000 ml PO ONETIME ONE Stop: 04/22/17 21:18 Last Admin: 04/22/17 22:24 Dose: 4,000 ml Propofol (Diprivan 20 Ml) Confirm Administered Dose 200 mg .ROUTE .STK-MED ONE Stop: 04/23/17 12:24 - Exam Quality Assessment: Supplemental Oxygen, DVT Prophylaxis General: Alert, Oriented, Cooperative HEENT: Pupils Equal, Pupils Reactive, EOMI Neck: Trachea Midline Lungs: Normal Respiratory Effort Cardiovascular: Regular Rate, Regular Rhythm GI/Abdominal Exam: Normal Bowel Sounds, Soft, No Organomegaly, No Distention (Female) Exam: Deferred Back Exam: Normal Inspection Extremities: Normal Inspection Skin: Warm Neurological: No New Focal Deficit Psy/Mental Status: Alert, Depressed - Problem List Review Problem List Initiated/Reviewed/Updated: Yes - My Orders Last 24 Hours: My Active Orders 04/24/17 09:15 Ambulate [RC] PER UNIT ROUTINE Potassium Chloride [Klor-Con M20] 40 meq PO BID 04/24/17 Breakfast Heart Healthy Diet [DIET] 04/24/17 Dinner Full Liquid Diet [DIET] 04/25/17 05:00 BASIC METABOLIC PANEL,BMP [CHEM] Routine CBC WITH AUTO DIFF [HEME] Routine MAGNESIUM [CHEM] Routine - Plan Plan:: POD 4, EGD; post procedure-->colonoscopy, POD 1 Assessment/Plan: Acute: Failure To Thrive---improving - Recent URI/Bronchitis completed course - Decreased Appetite and Questionable New onset of Confusion/Memory Impairment - Continue appetite stimulants--appetite dramatically improved with addition of marinol Generalized Weakness, improving slowly - Started on 03-26-17; GI blood loss acutely to day with return after DC Moderate -Severe Memory Impairment - She seems to be at baseline now; Cognitive eval completed with moderate to severe cognitive impairment; supplements provided at DC GI Bleed/Grossly Positive--->stable; verbal report of inflammatory changes suggestive of Crohns - Hgb stable, rec eived 1 unit PRBC - C. Diff test-negative - Iron panel: low transferrin level (liver function is normal; CBC is normal ; > other anemia) - Clinically and hemodynamically stable - Advance diet as tolerated. CKD Stage 3, Stable Mild Hypokalemia--chronic, replace for K>4.0 Hypomagnesemia--replace for Mg>2.0 DNR/DNI
--- NOTE | 2017-04-24 18:03 | PCM48HPAN ---
Post Anesthesia Note - EVALUATION WITHIN 48HRS OF ANESTHETIC Vital Signs in Normal Range: Yes Patient Participated in Evaluation: No (reviewed chart) Respiratory Function Stable: Yes Airway Patent: Yes Cardiovascular Function Stable: Yes Hydration Status Stable: Yes Pain Control Satisfactory: Yes Nausea and Vomiting Control Satisfactory: Yes Mental Status Recovered: Yes
[2017-04-24] MEDS: Thiamine 100 MG Tab PO SCH (21:07)
[2017-04-25] MEDS: Sucralfate Suspension 1 GM/10 ML Cup PO SCH ×4 (06:23→21:49)
[2017-04-25] MEDS: Pantoprazole 40 MG Tab.CR PO SCH ×2 (06:23→17:10)
[2017-04-25] MEDS: Potassium Chloride 20 MEQ Tab.ER PO SCH ×2 (08:35→21:48)
[2017-04-25] MEDS: Simvastatin 20 MG Tab PO SCH (08:36)
[2017-04-25] MEDS: Magnesium Oxide 400 MG Tab PO SCH ×2 (08:36→21:49)
[2017-04-25] MEDS: Dronabinol 2.5 MG Cap PO SCH ×2 (11:08→17:10)
--- NOTE | 2017-04-25 16:05 | PCM.PN ---
- General Info Date of Service: 04/25/17 Functional Status: Reports: Tolerating Diet - Review of Systems General: Reports: Weakness HEENT: Reports: No Symptoms Pulmonary: Reports: No Symptoms Cardiovascular: Reports: No Symptoms Gastrointestinal: Reports: No Symptoms Genitourinary: Reports: No Symptoms Musculoskeletal: Reports: No Symptoms Skin: Reports: No Symptoms Neurological: Reports: No Symptoms Psychiatric: Reports: No Symptoms - Patient Data Vitals - Most Recent: Last Vital Signs Temp 37.2 C 04/25/17 12:04 Pulse 68 04/25/17 15:39 Resp 16 04/25/17 15:39 BP 122/54 L 04/25/17 15:39 Pulse Ox 97 04/25/17 15:39 Weight - Most Recent: 77.474 kg I&O - Last 24 Hours: Intake & Output 04/25/17 04/25/17 04/25/17 06:59 14:59 22:59 Intake Total 100 240 Output Total 200 Balance -100 240 Lab Results Last 24 Hours: Laboratory Results - last 24 hr 04/25/17 04/25/17 Range/Units 06:02 06:02 WBC 9.92 (3.98-10.04) K/mm3 RBC 4.44 (3.98-5.22) M/mm3 Hgb 12.8 (11.2-15.7) gm/L Hct 37.6 (34.1-44.9) % MCV 84.7 (79.4-94.8) fl MCH 28.8 (25.6-32.2) pg MCHC 34.0 (32.2-35.5) g/dl RDW Std Deviation 46.2 (36.4-46.3) fL Plt Count 184 (182-369) K/mm3 MPV 10.4 (9.4-12.3) fl Neut % (Auto) 65.2 (34.0-71.1) % Lymph % (Auto) 20.9 (19.3-51.7) % [place] % (Auto) 9.8 (4.7-12.5) % Eos % (Auto) 3.2 (0.7-5.8) Baso % (Auto) 0.3 (0.1-1.2) % Neut # (Auto) 6.47 H (1.56-6.13) K/mm3 Lymph # (Auto) 2.07 (1.18-3.74) K/mm3 [place] # (Auto) 0.97 H (0.24-0.36) K/mm3 Eos # (Auto) 0.32 (0.04-0.36) K/mm3 Baso # (Auto) 0.03 (0.01-0.08) K/mm3 Sodium 137 (136-145) mEq/L Potassium 3.3 L (3.5-5.1) mEq/L Chloride 102 (98-107) mEq/L Carbon Dioxide 26 (21-32) mEq/L Anion Gap 12.3 (5-15) BUN 8 (7-18) mg/dL Creatinine 1.0 (0.55-1.02) mg/dL Est Cr Clr Drug Dosing 37.10 mL/min Estimated GFR (MDRD) 52 (>60) mL/min BUN/Creatinine Ratio 8.0 L (14-18) Glucose 91 (83-115) mg/dL Calcium 8.1 L (8.5-10.1) mg/dL Magnesium 1.4 L (1.8-2.4) mg/dl Ezekiel Results Last 24 Hours: Microbiology 04/23/17 13:21 Stool Culture - Preliminary Stool / Feces - Final - Final Med Orders - Current: Current Medications Acetaminophen (Tylenol) 650 mg PO Q4H PRN PRN Reason: Pain (Mild 1-3)/fever Benzonatate (Tessalon Perles) 200 mg PO TID PRN PRN Reason: Cough Dronabinol (Marinol) 2.5 mg PO TIDAC [facility] Last Admin: 04/25/17 11:08 Dose: 2.5 mg Magnesium Oxide (Magnesium Oxide) 400 mg PO BID [facility] Last Admin: 04/25/17 08:36 Dose: 400 mg Methylprednisolone Sodium Succinate (Solu-Medrol) 80 mg IVPUSH DAILY [facility] Non-Formulary Medication (Alendronate) 70 mg PO WEEKLY [facility] Ondansetron HCl (Zofran) 4 mg IVPUSH Q4H PRN PRN Reason: Nausea/Vomiting Last Admin: 04/23/17 06:17 Dose: 4 mg Pantoprazole Sodium (Protonix) 40 mg PO BIDAC [facility] Last Admin: 04/25/17 06:23 Dose: 40 mg Potassium Chloride (Klor-Con M20) 40 meq PO BID [facility] Stop: 04/26/17 21:01 Last Admin: 04/25/17 08:35 Dose: 40 meq Simvastatin (Zocor) 20 mg PO DAILY [facility] Last Admin: 04/25/17 08:36 Dose: 20 mg Sucralfate (Carafate) 1 gm PO ACBED [facility] Last Admin: 04/25/17 11:08 Dose: 1 gm Thiamine HCl (Vitamin B-1) 100 mg PO BEDTIME [facility] Last Admin: 04/24/17 21:07 Dose: 100 mg Discontinued Medications Fentanyl (Sublimaze) Confirm Administered Dose 100 mcg .ROUTE .STK-MED ONE Stop: 04/23/17 12:25 Furosemide (Lasix) 20 mg IVPUSH NOW ONE Stop: 04/22/17 20:43 Last Admin: 04/22/17 22:49 Dose: 20 mg Sodium Chloride (Normal Saline) 1,000 mls @ 150 mls/hr IV ASDIRECTED [facility] Last Admin: 04/23/17 20:09 Dose: 150 mls/hr Lidocaine HCl (Xylocaine-Mpf 1%) Confirm Administered Dose 4 mls @ as directed .ROUTE .STK-MED ONE Stop: 04/23/17 12:24 Lactated Ringer's (Ringers, Lactated) Confirm Administered Dose 1,000 mls @ as directed .ROUTE .STK-MED ONE Stop: 04/23/17 12:26 Polyethylene Glycol/Electrolytes (Golytely) 4,000 ml PO ONETIME ONE Stop: 04/22/17 21:18 Last Admin: 04/22/17 22:24 Dose: 4,000 ml Propofol (Diprivan 20 Ml) Confirm Administered Dose 200 mg .ROUTE .STK-MED ONE Stop: 04/23/17 12:24 - Exam Quality Assessment: Supplemental Oxygen, DVT Prophylaxis General: Alert, Oriented, Cooperative, No Acute Distress HEENT: Pupils Equal, Pupils Reactive, EOMI Neck: Trachea Midline, No JVD Lungs: Clear to Auscultation, Normal Respiratory Effort Cardiovascular: Regular Rate, Regular Rhythm GI/Abdominal Exam: Normal Bowel Sounds, Soft, Non-Tender, No Organomegaly, No Distention (Female) Exam: Deferred Back Exam: Normal Inspection Extremities: Normal Inspection Skin: Warm Neurological: No New Focal Deficit Psy/Mental Status: Alert, Normal Affect, Normal Mood - Problem List Review Problem List Initiated/Reviewed/Updated: Yes - My Orders Last 24 Hours: My Active Orders 04/24/17 Dinner Full Liquid Diet [DIET] 04/25/17 16:00 Alendronate 70 mg PO WEEKLY 04/25/17 18:00 methylPREDNISolone Sod Succ [Solu-MEDROL] 80 mg IVPUSH DAILY - Plan Plan:: POD 4, EGD; post procedure-->colonoscopy, POD 1 Assessment/Plan: Acute: Failure To Thrive---improving - Recent URI/Bronchitis completed course - Decreased Appetite and Questionable New onset of Confusion/Memory Impairment - Continue appetite stimulants--appetite dramatically improved with addition of marinol Generalized Weakness, improving slowly - Started on 03-26-17; GI blood loss acutely to day with return after DC Moderate -Severe Memory Impairment - She seems to be at baseline now; Cognitive eval completed with moderate to severe cognitive impairment; supplements provided at DC GI Bleed/Grossly Positive--->stable; verbal report of inflammatory changes suggestive of Crohns, will start IV steroids and DC on prednisone Dictated report is not available; query diffuse/left sided Crohns cf right sided (prednisone/sulfasalazine cf budesonide) - Hgb stable, received 1 unit PRBC - C. Diff test-negative - Iron panel: low transferrin level (liver function is normal; CBC is normal ; > other anemia) - Clinically and hemodynamically stable - Advance diet as tolerated. CKD Stage 3, Stable Mild Hypokalemia--chronic, replace for K>4.0 Hypomagnesemia--replace for Mg>2.0 LOS>96 hours with current treatment plan for Crohns and recent GI bleed. DNR/DNI
[2017-04-25] MEDS: methylPREDNISolone Sodium Succinate 40 MG/1 ML SDV IVPUSH SCH (17:56)
[2017-04-25] MEDS: Thiamine 100 MG Tab PO SCH (21:49)
[2017-04-26] MEDS: Dronabinol 2.5 MG Cap PO SCH ×3 (06:47→16:17)
[2017-04-26] MEDS: Sucralfate Suspension 1 GM/10 ML Cup PO SCH ×4 (06:47→21:19)
[2017-04-26] MEDS: Pantoprazole 40 MG Tab.CR PO SCH ×2 (06:47→16:17)
--- NOTE | 2017-04-26 07:20 | CONS ---
CONSULTING PHYSICIAN: Warren Girard MD DATE OF CONSULTATION: 04/23/2017 HISTORY OF PRESENT ILLNESS: This is an 87-year-old, who was had large bright red bloody stool at home. Subsequently in the ER, 2 further large bloody stools. Since then, she has been free of any rectal bleeding. She has been evaluated here with a Kuhn catheter and a vaginal exam and no bleeding from there, it was felt that it was coming from the rectum. The patient's hemoglobin was that of 13.6 when she came in, she has been transfused 1 unit of blood, is now 13.8. The patient was in the hospital on 04/17/2017 where she had melanotic stool and underwent an upper GI endoscopy showing multiple ulcers in the second portion of the duodenum, that were superficial and a deep ulcer in the duodenal bulb. Biopsies were taken, a report of which is not available at this time. Her hemoglobin dropped to about 12. There was some gastritis in the antrum. The procedure was done on 04/17/2017. The patient is at the moment doing well, is comfortable, and is recommended to proceed with lower GI endoscopy. The patient has not had a colonoscopy. LABORATORY DATA: Has demonstrated of interest a BUN of 15 where in her last hospitalization from 30. PAST MEDICAL HISTORY: Hypertension, elevated cholesterol, history of memory loss. REVIEW OF SYSTEMS: No chest pain, shortness of breath, cough, hoarseness, wheezing, fainting, weakness, numbness, convulsions. PAST SURGICAL HISTORY: Hysterectomy. FAMILY HISTORY: Not helpful and noncontributory. MEDICATIONS: Per medication reconciliation form, which has consisted of Prilosec and Carafate. PHYSICAL EXAMINATION: VITAL SIGNS: Pulse 70, respirations 16, blood pressure 122/71. HEENT: Eyes: Sclerae white. Extraocular muscle motion normal. Oral Cavity: Healthy mucous membrane with mouth and tongue. NECK: Supple. No nodes. No thyromegaly. LUNGS: Clear. No rales, rhonchi, fremitus, dullness. HEART: Heart tones. No S3, S4, jugular venous distention, or murmurs. ABDOMEN: Soft. No tenderness, guarding, or rebound. EXTREMITIES: Upper extremities, no angulation deformities. NEUROLOGIC: No sensorineural deficit. SKIN: Warm and dry. PSYCHIATRIC: Other than memory loss is good. ASSESSMENT: Lower gastrointestinal bleed. PLAN: For colonoscopy. Discussed the procedure, the risks, the complications. She understands and consents. ANGEL /[id number]
--- NOTE | 2017-04-26 07:35 | OR ---
DATE OF OPERATION: 04/23/2017 SURGEON: Warren Girard MD PREOPERATIVE DIAGNOSIS: Rectal bleeding. POSTOPERATIVE DIAGNOSIS: Rectal bleeding. OPERATION PERFORMED: Colonoscopy to cecum. FINDINGS: An area of colitis extending from 60 cm distally to 20 cm involving the descending and sigmoid colon. The area shows complete loss of the colonic mucosa with a tendency for narrowing at around 20 cm with cobblestoning where the upper part of the descending colon just shows superficial ulcerations. The suggestion is this has appearance of Crohn's disease. The cecum is free of any disease. The ileocecal valve did not show any scarring or disease, was unable to cannulate into the ileum. The ascending colon, the transverse colon, the splenic flexure, and rectum were free of disease. Biopsies were taken along the segment that included a biopsy at 60, 40, and 20 cm in rectum. DICTATION ENDS HERE. ANESTHESIA: ESTIMATED BLOOD LOSS: DESCRIPTION OF PROCEDURE: MMODAL /[id number]
--- NOTE | 2017-04-26 07:47 | OR ---
DATE OF OPERATION: 04/23/2017 SURGEON: Warren Girard MD PREOPERATIVE DIAGNOSIS: Rectal bleeding. POSTOPERATIVE DIAGNOSIS: Rectal bleeding. OPERATION PERFORMED: Colonoscopy to cecum with biopsy done under IV sedation. FINDINGS: An area of colitis extending from about 70 cm to 20 cm, which there is tendency to scarring in the more distal part of the disease around the sigmoid with a complete loss of the mucosa architecture with cobblestoning with superficial ulceration around 70 cm. The cecum, ascending colon and the area around the ileum, although was unable to cannulate the ileum. The transverse colon, sigmoid, and the splenic flexure were free of any disease as was the rectum. Biopsies were taken at 70, 60, 50, 40, and 20 cm in rectum. DESCRIPTION OF PROCEDURE: The patient was taken to the treatment room, placed in a supine position, connected to monitoring equipment, IV sedation given. The patient was placed left lateral position. Perianal area was inspected, it was normal. Rectal exam and anoderm were unremarkable. Colonoscope was introduced up to 20 cm, where a narrowed area was encountered. The scope was advanced beyond this into an area of colitis and then the advance was continued up to the cecum. The ileocecal valve appeared normal. Attempts to cannulate the ileum was unsuccessful. The prep was excellent throughout the colon and the scope was slowly withdrawn collecting stool for ova and parasites and C difficile, viewing the cecum, ascending colon, transverse colon, descending colon, sigmoid colon, and rectum. The above noted was found, biopsies were taken, collection of specimen was done for pathogenic bacteria. The patient tolerated the procedure and sent to recovery room in a stable condition, and will be followed up as needed. ANESTHESIA: ESTIMATED BLOOD LOSS: MMODAL /[id number]
[2017-04-26] MEDS: Potassium Chloride 20 MEQ Tab.ER PO SCH (09:19)
[2017-04-26] MEDS: Magnesium Oxide 400 MG Tab PO SCH ×2 (09:19→21:19)
[2017-04-26] MEDS: Simvastatin 20 MG Tab PO SCH (09:19)
[2017-04-26] MEDS: methylPREDNISolone Sodium Succinate 40 MG/1 ML SDV IVPUSH SCH (09:20)
[2017-04-26] MEDS: Magnesium Sulfate/Water 2 GM in Premix Bag 1 BAG IV SCH ×2 (11:50→16:17)
--- NOTE | 2017-04-26 16:58 | PCM.PN ---
- General Info Date of Service: 04/26/17 Functional Status: Reports: Tolerating Diet, Ambulating, Urinating - Review of Systems General: Reports: No Symptoms HEENT: Reports: No Symptoms Pulmonary: Reports: No Symptoms Cardiovascular: Reports: No Symptoms Gastrointestinal: Reports: Decreased Appetite Genitourinary: Reports: No Symptoms Musculoskeletal: Reports: No Symptoms Skin: Reports: No Symptoms Neurological: Reports: No Symptoms Psychiatric: Reports: No Symptoms - Patient Data Vitals - Most Recent: Last Vital Signs Temp 36.9 C 04/26/17 15:17 Pulse 65 04/26/17 15:17 Resp 18 04/26/17 15:17 BP 113/65 04/26/17 15:17 Pulse Ox 98 04/26/17 15:17 Weight - Most Recent: 76.975 kg I&O - Last 24 Hours: Intake & Output 04/26/17 04/26/17 04/26/17 06:59 14:59 22:59 Intake Total 300 680 450 Output Total 1200 750 Balance -900 680 -300 Lab Results Last 24 Hours: Laboratory Results - last 24 hr 04/26/17 04/26/17 04/26/17 Range/Units 10:40 10:40 10:40 WBC 8.35 (3.98-10.04) K/mm3 RBC 4.50 (3.98-5.22) M/mm3 Hgb 13.1 (11.2-15.7) gm/L Hct 38.1 (34.1-44.9) % MCV 84.7 (79.4-94.8) fl MCH 29.1 (25.6-32.2) pg MCHC 34.4 (32.2-35.5) g/dl RDW Std Deviation 45.2 (36.4-46.3) fL Plt Count 201 (182-369) K/mm3 MPV 9.9 (9.4-12.3) fl Neut % (Auto) 81.9 H (34.0-71.1) % Lymph % (Auto) 14.0 L (19.3-51.7) % [place] % (Auto) 2.9 L (4.7-12.5) % Eos % (Auto) 0 L (0.7-5.8) Baso % (Auto) 0.1 (0.1-1.2) % Neut # (Auto) 6.84 H (1.56-6.13) K/mm3 Lymph # (Auto) 1.17 L (1.18-3.74) K/mm3 [place] # (Auto) 0.24 (0.24-0.36) K/mm3 Eos # (Auto) 0.00 L (0.04-0.36) K/mm3 Baso # (Auto) 0.01 (0.01-0.08) K/mm3 PT 10.9 (8.0-13.0) SECONDS INR 1.00 Sodium 132 L (136-145) mEq/L Potassium 3.6 (3.5-5.1) mEq/L Chloride 99 (98-107) mEq/L Carbon Dioxide 24 (21-32) mEq/L Anion Gap 12.6 (5-15) BUN 10 (7-18) mg/dL Creatinine 1.2 H (0.55-1.02) mg/dL Est Cr Clr Drug Dosing 30.92 mL/min Estimated GFR (MDRD) 42 (>60) mL/min BUN/Creatinine Ratio 8.3 L (14-18) Glucose 220 H (83-115) mg/dL Calcium 8.5 (8.5-10.1) mg/dL Magnesium 1.3 L (1.8-2.4) mg/dl [place] Results Last 24 Hours: Microbiology 04/23/17 13:21 Stool Culture - Final Stool / Feces - Final - Final Med Orders - Current: Current Medications Acetaminophen (Tylenol) 650 mg PO Q4H PRN PRN Reason: Pain (Mild 1-3)/fever Benzonatate (Tessalon Perles) 200 mg PO TID PRN PRN Reason: Cough Dronabinol (Marinol) 2.5 mg PO TIDAC [facility] Last Admin: 04/26/17 16:17 Dose: 2.5 mg Sodium Chloride (Normal Saline) 1,000 mls @ 75 mls/hr IV ASDIRECTED [facility] Magnesium Oxide (Magnesium Oxide) 400 mg PO BID [facility] Last Admin: 04/26/17 09:19 Dose: 400 mg Methylprednisolone Sodium Succinate (Solu-Medrol) 80 mg IVPUSH DAILY [facility] Last Admin: 04/26/17 09:20 Dose: 80 mg Ondansetron HCl (Zofran) 4 mg IVPUSH Q4H PRN PRN Reason: Nausea/Vomiting Last Admin: 04/23/17 06:17 Dose: 4 mg Oral Electrolytes (Thermotabs) 1 each PO BID [facility] Stop: 04/29/17 09:01 Pantoprazole Sodium (Protonix) 40 mg PO BIDAC [facility] Last Admin: 04/26/17 16:17 Dose: 40 mg Potassium Chloride (Klor-Con M20) 60 meq PO BID [facility] Stop: 04/26/17 21:01 Simvastatin (Zocor) 20 mg PO DAILY [facility] Last Admin: 04/26/17 09:19 Dose: 20 mg Sucralfate (Carafate) 1 gm PO ACBED [facility] Last Admin: 04/26/17 16:17 Dose: 1 gm Thiamine HCl (Vitamin B-1) 100 mg PO BEDTIME [facility] Last Admin: 04/25/17 21:49 Dose: 100 mg Discontinued Medications Fentanyl (Sublimaze) Confirm Administered Dose 100 mcg .ROUTE .STK-MED ONE Stop: 04/23/17 12:25 Furosemide (Lasix) 20 mg IVPUSH NOW ONE Stop: 04/22/17 20:43 Last Admin: 04/22/17 22:49 Dose: 20 mg Sodium Chloride (Normal Saline) 1,000 mls @ 150 mls/hr IV ASDIRECTED [facility] Last Admin: 04/23/17 20:09 Dose: 150 mls/hr Lidocaine HCl (Xylocaine-Mpf 1%) Confirm Administered Dose 4 mls @ as directed .ROUTE .STK-MED ONE Stop: 04/23/17 12:24 Lactated Ringer's (Ringers, Lactated) Confirm Administered Dose 1,000 mls @ as directed .ROUTE .STK-MED ONE Stop: 04/23/17 12:26 Magnesium Sulfate 2 gm/ Premix 50 mls @ 25 mls/hr IV Q2H [facility] Stop: 04/26/17 14:59 Last Admin: 04/26/17 16:17 Dose: 25 mls/hr Alendronate 70mg (Tablet) 70 mg PO Q7D [facility] Polyethylene Glycol/Electrolytes (Golytely) 4,000 ml PO ONETIME ONE Stop: 04/22/17 21:18 Last Admin: 04/22/17 22:24 Dose: 4,000 ml Potassium Chloride (Klor-Con M20) 40 meq PO BID [facility] Stop: 04/26/17 21:01 Last Admin: 04/26/17 09:19 Dose: 40 meq Propofol (Diprivan 20 Ml) Confirm Administered Dose 200 mg .ROUTE .STK-MED ONE Stop: 04/23/17 12:24 - Exam Quality Assessment: Supplemental Oxygen, DVT Prophylaxis General: Alert, Oriented, Cooperative, No Acute Distress HEENT: Pupils Equal, Pupils Reactive, EOMI Neck: Supple, Trachea Midline, No JVD Lungs: Normal Respiratory Effort Cardiovascular: Regular Rate, Regular Rhythm GI/Abdominal Exam: Normal Bowel Sounds, Soft, Non-Tender, No Organomegaly, No Distention (Female) Exam: Deferred Back Exam: Normal Inspection Extremities: Normal Inspection Skin: Warm Neurological: No New Focal Deficit Psy/Mental Status: Alert, Normal Affect, Normal Mood - Problem List Review Problem List Initiated/Reviewed/Updated: Yes - My Orders Last 24 Hours: My Active Orders 04/25/17 18:00 methylPREDNISolone Sod Succ [Solu-MEDROL] 80 mg IVPUSH DAILY 04/26/17 13:13 Consult to Physical Therapy [PT Evaluation and Treatment] [CONS] Routine 04/26/17 13:14 Consult to Occupational Therapy [OT Evaluation and Treatment] [CONS] Routine 04/26/17 17:00 Sodium Chloride 0.9% @ 75 MLS/HR(1000ml Bag) Sodium Chloride 0.9% [Normal Saline] 1,000 ml IV ASDIRECTED 04/26/17 21:00 Potassium Chloride [Klor-Con M20] 60 meq PO BID Potassium Chloride/NaCl [Thermotabs] 1 each PO BID - Plan Plan:: POD 5, EGD; post procedure-->colonoscopy, POD 2 Assessment/Plan: Acute: Failure To Thrive---improving - Recent URI/Bronchitis completed course - Decreased Appetite and Questionable New onset of Confusion/Memory Impairment - Continue appetite stimulants--appetite dramatically improved with addition of marinol Generalized Weakness, improving slowly - Started on 03-26-17; GI blood loss acutely to day with return after DC Moderate -Severe Memory Impairment - She seems to be at baseline now; Cognitive eval completed with moderate to severe cognitive impairment; supplements provided at DC GI Bleed/Grossly Positive--->stable; verbal report of inflammatory changes suggestive of Crohns, will start IV steroids and DC on prednisone Dictated report is not available; query diffuse/left sided Crohns cf right sided (prednisone/sulfasalazine cf budesonide) - Hgb stable, received 1 unit PRBC - C. Diff test-negative - Iron panel: low transferrin level (liver function is normal; CBC is normal ; > other anemia) - Clinically and hemodynamically stable - Advance diet as tolerated. CKD Stage 3, Stable Mild Hypokalemia--chronic, replace for K>4.0 Hypomagnesemia--replace for Mg>2.0 Hyponatremia--Keep Na>135, start NaCl and thermotabs LOS>96 hours with current treatment plan for Crohns and recent GI bleed. DNR/DNI
[2017-04-26] MEDS ORDERED: Sodium Chloride 0.9% 1,000 ML IV SCH (17:00)
[2017-04-26] MEDS ORDERED: Potassium Chloride 20 MEQ Tab.ER PO SCH (21:00)
[2017-04-26] MEDS: Potassium Chloride/Sodium Chloride Tab PO SCH (21:18)
[2017-04-26] MEDS: Thiamine 100 MG Tab PO SCH (21:18)
[2017-04-27] MEDS: Dronabinol 2.5 MG Cap PO SCH ×2 (06:10→10:41)
[2017-04-27] MEDS: Sucralfate Suspension 1 GM/10 ML Cup PO SCH ×2 (06:10→10:41)
[2017-04-27] MEDS: Pantoprazole 40 MG Tab.CR PO SCH (06:10)
[2017-04-27] MEDS: methylPREDNISolone Sodium Succinate 40 MG/1 ML SDV IVPUSH SCH (08:40)
[2017-04-27] MEDS: Potassium Chloride/Sodium Chloride Tab PO SCH (08:40)
[2017-04-27] MEDS: Magnesium Oxide 400 MG Tab PO SCH (08:40)
[2017-04-27] MEDS: Simvastatin 20 MG Tab PO SCH (08:40)
--- NOTE | 2017-04-27 09:27 | PCM.DCSUM1 ---
<Lyubov Augustin - Last Filed: 04/27/17 11:31> Discharge Summary - Hospital Course Free Text/Narrative:: 87-year-old female presented to the ED after having a large bright red bloody stool at home. Subsequently in the ED she has had two large bloody stools more with occasional clots. She was discharged from the hospital earlier this morning after being admitted with a GI bleed. The patient had a stable hospitalization; a duodenal ulcer and other abnormalities were found. She was started on Carafate as well as additional medication for erosive areas in the small intestine. A significant lower GI bleed is highly suspected. She complains of diffuse lower abdominal discomfort. She will be admitted for a colonoscopy which was not performed prior to discharge. A general surgery consult has been requested with notification this evening. The procedure will be scheduled for noon, Golytely will be started immediately for adequate preparation pre procedure. - Discharge Data Discharge Date: 04/27/17 (admit date 04/22/17) Discharge Disposition: DC/Tfer to Other 70 Condition: Good - Discharge Diagnosis/Problem(s) (1) Lower GI bleeding SNOMED Code(s): 26814744 ICD Code: K92.2 - GASTROINTESTINAL HEMORRHAGE, UNSPECIFIED Status: Acute Priority: High Current Visit: Yes (2) Peptic ulcer SNOMED Code(s): 56074341 ICD Code: K27.9 - PEPTIC ULC, SITE UNSP, UNSP AC OR CHR, W/O HEMOR OR PERF Status: Acute Priority: High Current Visit: Yes (3) Failure to thrive SNOMED Code(s): 34998418 ICD Code: [id number] - Status: Acute Priority: High Current Visit: Yes QualifierTitle: Failure to thrive age range: in adult Qualified Code(s): R62.7 - Adult failure to thrive (4) CKD (chronic kidney disease) stage 3, GFR 30-59 ml/min SNOMED Code(s): 938635224 ICD Code: N18.3 - CHRONIC KIDNEY DISEASE, STAGE 3 (MODERATE) Status: Chronic Priority: Medium Current Visit: No (5) CHF (congestive heart failure) SNOMED Code(s): 68319312 ICD Code: I50.9 - HEART FAILURE, UNSPECIFIED Status: Chronic Priority: Medium Current Visit: No - Patient Summary/Data Operative Procedure(s) Performed: None Complications: None Consults: Consultations 04/22/17 21:18 Consult to Physician [CONS] Routine 04/26/17 13:13 Consult to Physical Therapy [PT Evaluation and Treatment] [CONS] Routine 04/26/17 13:14 Consult to Occupational Therapy [OT Evaluation and Treatment] [CONS] Routine Labs Pending at D/C: None Recommended Follow-up Testing/Procedures: Patient DC isntructions: Outpatient physical therapy. Gastrointestinal specialist referral for possible Crohn's disease and GI bleeding. Jamari Martinez will call you to schedule this appointment. Follow up with Dr. Sauceda within 5-7 days of discharge Push fluids Planned Operative Procedure(s) after DC: None Hospital Course: POD 5, EGD; post procedure-->colonoscopy, POD 2 Assessment/Plan: Acute: Failure To Thrive---improving - Recent URI/Bronchitis completed tx course - Decreased Appetite and Questionable New onset of Confusion/Memory Impairment - Continue appetite stimulants--appetite dramatically improved with addition of marinol Generalized Weakness, improving slowly - Started on 03-26-17; GI blood loss acutely - Tx as noted above, appetite stimulant - TSH WNL at last admission Moderate -Severe Memory Impairment - She seems to be at baseline now; Cognitive eval completed with moderate to severe cognitive impairment; supplements provided at DC - Plans to DC back to [facility] GI Bleed/Grossly Positive--->stable; verbal report of inflammatory changes suggestive of Crohns, will start IV steroids and DC on prednisone - Dictated report is not available from Dr. Girard; query diffuse/ left sided Crohns cf right sided (prednisone/sulfasalazine cf budesonide) - Hgb stable, received 1 unit PRBC on admission - C. Diff test-negative - Iron panel: low transferrin level (liver function is normal; CBC is normal ; > other anemia) - Clinically and hemodynamically stable - Advance diet as tolerated. CKD Stage 3, Stable Mild Hypokalemia--chronic, replace for K>4.0 Hypomagnesemia--replace for Mg>2.0 Hyponatremia--Keep Na>135, start NaCl and thermotabs LOS>96 hours with current treatment plan for Crohns and recent GI bleed. Plans DC back to [facility], GI follow up/consult as outpatient---GI to call patient to set up appointment, information has been faxed for appt scheduling. DNR/DNI PCP is Dr. Sohail Kauffman. - Patient Instructions Diet: Usual Diet as Tolerated, Drink 8-10+ Glasses/Day, GI Soft/Low Residue/Low Fiber (advance diet slowly as tolerated) Activity: As Tolerated (Outpatient Physical Therapy) Driving: Do Not Drive Showering/Bathing: May Shower Notify Provider of: Fever, Increased Pain, Nausea and/or Vomiting - Discharge Plan Prescriptions/Med Rec: Prednisone [IJD: Prednisone] 10 mg PO DAILY #30 tab Home Medications: Home Meds Alendronate [Fosamax] 70 mg PO WEEKLY 04/17/17 [History] Benzonatate [Tessalon Perle] 200 mg PO TID PRN 04/17/17 [History] Potassium Chloride 10 meq PO DAILY 04/17/17 [History] Triamterene/Hydrochlorothiazid [Triamterene-HCTZ 37.5-25 MG] 1 tab PO DAILY 05/30 [History] amLODIPine [Norvasc] 10 mg PO DAILY 04/17/17 [History] atorvaSTATin [Lipitor] 20 mg PO DAILY 04/17/17 [History] Acetaminophen [Tylenol] 650 mg PO Q4H PRN tablet 04/22/17 [Rx] Docusate Sodium [Colace] 100 mg PO BID PRN cap 04/22/17 [Rx] Dronabinol [Marinol] 2.5 mg PO TIDAC #60 cap 04/22/17 [Rx] Ergocalciferol (Vitamin D2) [Vitamin D2] 50,000 units PO Q7D #4 cap 04/22/17 [Rx ] Magnesium Oxide 400 mg PO BID #60 tab 04/22/17 [Rx] Omeprazole 20 mg PO BIDAC #60 cap.sr 04/22/17 [Rx] Sucralfate [Carafate] 1 gm PO ACBED #1 bottle 04/22/17 [Rx] Thiamine [Vitamin B-1] 100 mg PO BEDTIME #30 tablet 04/22/17 [Rx] Prednisone [IJD: Prednisone] 10 mg PO DAILY #30 tab 04/27/17 [Rx] Patient Handouts: Colonoscopy, Adult, Care After, [id number], Peptic Ulcer, [id number], Gastrointestinal Bleeding, Food Choices for Peptic Ulcer Disease Forms: ED Department Discharge Referrals: Lopez Sauceda MD [Primary Care Provider] - 05/05/17 2:30 am (Please follow-up with your primary care doctor, Dr. Sauceda, on WednesdayMay 05 at 230pm. ) - Discharge Summary/Plan Comment DC Time >30 min.: Yes (40 min) - General Info Date of Service: 04/27/17 Admission Dx/Problem (Free Text: Admission Diagnosis/Problem Admission Diagnosis/Problem GI bleed not requiring more than 4 units of blood in 24 hours, ICU, or surgery Patient doing well, appetite still decreased. Energy improving slowly. Outpatient GI consult will be scheduled, GI office to contact patient for appt. VSS, afebrile. Plans for DC today. Functional Status: Reports: Pain Controlled, Tolerating Diet, Ambulating, Urinating. Denies: New Symptoms - Review of Systems General: Reports: Weakness (improving) HEENT: Reports: No Symptoms Pulmonary: Reports: No Symptoms. Denies: Shortness of Breath, Cough Cardiovascular: Reports: No Symptoms. Denies: Chest Pain Gastrointestinal: Reports: Decreased Appetite (improved with marinol). Denies: Diarrhea, Hematochezia, Melena, Nausea, Vomiting Genitourinary: Reports: No Symptoms Neurological: Reports: No Symptoms - Patient Data Vitals - Most Recent: Last Vital Signs Temp 97.7 F 04/27/17 02:19 Pulse 59 L 04/27/17 02:19 Resp 19 04/27/17 02:19 BP 128/66 04/27/17 02:19 Pulse Ox 98 04/27/17 02:19 Weight - Most Recent: 77.111 kg I&O - Last 24 hours: Intake & Output 04/26/17 04/27/17 04/27/17 22:59 06:59 14:59 Intake Total 870 500 Output Total 750 1000 Balance 120 -500 Lab Results - Last 24 hrs: Laboratory Results - last 24 hr 04/26/17 04/26/17 04/26/17 Range/Units 10:40 10:40 10:40 WBC 8.35 (3.98-10.04) K/mm3 RBC 4.50 (3.98-5.22) M/mm3 Hgb 13.1 (11.2-15.7) gm/L Hct 38.1 (34.1-44.9) % MCV 84.7 (79.4-94.8) fl MCH 29.1 (25.6-32.2) pg MCHC 34.4 (32.2-35.5) g/dl RDW Std Deviation 45.2 (36.4-46.3) fL Plt Count 201 (182-369) K/mm3 MPV 9.9 (9.4-12.3) fl Neut % (Auto) 81.9 H (34.0-71.1) % Lymph % (Auto) 14.0 L (19.3-51.7) % Ida % (Auto) 2.9 L (4.7-12.5) % Eos % (Auto) 0 L (0.7-5.8) Baso % (Auto) 0.1 (0.1-1.2) % Neut # (Auto) 6.84 H (1.56-6.13) K/mm3 Lymph # (Auto) 1.17 L (1.18-3.74) K/mm3 Ida # (Auto) 0.24 (0.24-0.36) K/mm3 Eos # (Auto) 0.00 L (0.04-0.36) K/mm3 Baso # (Auto) 0.01 (0.01-0.08) K/mm3 Manual Slide Review PT 10.9 (8.0-13.0) SECONDS INR 1.00 Sodium 132 L (136-145) mEq/L Potassium 3.6 (3.5-5.1) mEq/L Chloride 99 (98-107) mEq/L Carbon Dioxide 24 (21-32) mEq/L Anion Gap 12.6 (5-15) BUN 10 (7-18) mg/dL Creatinine 1.2 H (0.55-1.02) mg/dL Est Cr Clr Drug Dosing 30.92 mL/min Estimated GFR (MDRD) 42 (>60) mL/min BUN/Creatinine Ratio 8.3 L (14-18) Glucose 220 H (83-115) mg/dL Calcium 8.5 (8.5-10.1) mg/dL Magnesium 1.3 L (1.8-2.4) mg/dl C-Reactive Protein (<1.0) mg/dL 04/27/17 04/27/17 Range/Units 06:05 06:05 WBC 15.72 H (3.98-10.04) K/mm3 RBC 4.41 (3.98-5.22) M/mm3 Hgb 12.7 (11.2-15.7) gm/L Hct 37.5 (34.1-44.9) % MCV 85.0 (79.4-94.8) fl MCH 28.8 (25.6-32.2) pg MCHC 33.9 (32.2-35.5) g/dl RDW Std Deviation 45.5 (36.4-46.3) fL Plt Count 234 (182-369) K/mm3 MPV 10.2 (9.4-12.3) fl Neut % (Auto) 79.3 H (34.0-71.1) % Lymph % (Auto) 12.1 L (19.3-51.7) % Ida % (Auto) 7.4 (4.7-12.5) % Eos % (Auto) 0.1 L (0.7-5.8) Baso % (Auto) 0.2 (0.1-1.2) % Neut # (Auto) 12.48 H (1.56-6.13) K/mm3 Lymph # (Auto) 1.90 (1.18-3.74) K/mm3 Ida # (Auto) 1.16 H (0.24-0.36) K/mm3 Eos # (Auto) 0.01 L (0.04-0.36) K/mm3 Baso # (Auto) 0.03 (0.01-0.08) K/mm3 Manual Slide Review Normal smear PT (8.0-13.0) SECONDS INR Sodium (136-145) mEq/L Potassium (3.5-5.1) mEq/L Chloride (98-107) mEq/L Carbon Dioxide (21-32) mEq/L Anion Gap (5-15) BUN (7-18) mg/dL Creatinine (0.55-1.02) mg/dL Est Cr Clr Drug Dosing mL/min Estimated GFR (MDRD) (>60) mL/min BUN/Creatinine Ratio (14-18) Glucose (83-115) mg/dL Calcium (8.5-10.1) mg/dL Magnesium 2.4 (1.8-2.4) mg/dl C-Reactive Protein 0.4 (<1.0) mg/dL SERGIO Results - Last 24 hrs: Microbiology 04/23/17 13:21 Cryptosporidium/Giardia - Final Stool / Feces 04/23/17 13:21 Stool Culture - Final Stool / Feces - Final - Final Med Orders - Current: Current Medications Acetaminophen (Tylenol) 650 mg PO Q4H PRN PRN Reason: Pain (Mild 1-3)/fever Benzonatate (Tessalon Perles) 200 mg PO TID PRN PRN Reason: Cough Dronabinol (Marinol) 2.5 mg PO TIDAC [facility] Last Admin: 04/27/17 06:10 Dose: 2.5 mg Magnesium Oxide (Magnesium Oxide) 400 mg PO BID [facility] Last Admin: 04/27/17 08:40 Dose: 400 mg Methylprednisolone Sodium Succinate (Solu-Medrol) 80 mg IVPUSH DAILY [facility] Last Admin: 04/27/17 08:40 Dose: 80 mg Ondansetron HCl (Zofran) 4 mg IVPUSH Q4H PRN PRN Reason: Nausea/Vomiting Last Admin: 04/23/17 06:17 Dose: 4 mg Oral Electrolytes (Thermotabs) 1 each PO BID [facility] Stop: 04/29/17 09:01 Last Admin: 04/27/17 08:40 Dose: 1 each Pantoprazole Sodium (Protonix) 40 mg PO BIDAC [facility] Last Admin: 04/27/17 06:10 Dose: 40 mg Simvastatin (Zocor) 20 mg PO DAILY [facility] Last Admin: 04/27/17 08:40 Dose: 20 mg Sucralfate (Carafate) 1 gm PO ACBED [facility] Last Admin: 04/27/17 06:10 Dose: 1 gm Thiamine HCl (Vitamin B-1) 100 mg PO BEDTIME [facility] Last Admin: 04/26/17 21:18 Dose: 100 mg Discontinued Medications Fentanyl (Sublimaze) Confirm Administered Dose 100 mcg .ROUTE .STK-MED ONE Stop: 04/23/17 12:25 Furosemide (Lasix) 20 mg IVPUSH NOW ONE Stop: 04/22/17 20:43 Last Admin: 04/22/17 22:49 Dose: 20 mg Sodium Chloride (Normal Saline) 1,000 mls @ 150 mls/hr IV ASDIRECTED [facility] Last Admin: 04/23/17 20:09 Dose: 150 mls/hr Lidocaine HCl (Xylocaine-Mpf 1%) Confirm Administered Dose 4 mls @ as directed .ROUTE .[facility] Stop: 04/23/17 12:24 Lactated Ringer's (Ringers, Lactated) Confirm Administered Dose 1,000 mls @ as directed .ROUTE .[facility] Stop: 04/23/17 12:26 Magnesium Sulfate 2 gm/ Premix 50 mls @ 25 mls/hr IV Q2H [facility] Stop: 04/26/17 14:59 Last Admin: 04/26/17 16:17 Dose: 25 mls/hr Sodium Chloride (Normal Saline) 1,000 mls @ 75 mls/hr IV ASDIRECTED [facility] Stop: 04/26/17 23:00 Last Admin: 04/26/17 20:10 Dose: 75 mls/hr Alendronate 70mg (Tablet) 70 mg PO Q7D [facility] Polyethylene Glycol/Electrolytes (Golytely) 4,000 ml PO ONETIME ONE Stop: 04/22/17 21:18 Last Admin: 04/22/17 22:24 Dose: 4,000 ml Potassium Chloride (Klor-Con M20) 40 meq PO BID [facility] Stop: 04/26/17 21:01 Last Admin: 04/26/17 09:19 Dose: 40 meq Potassium Chloride (Klor-Con M20) 60 meq PO BID [facility] Stop: 04/26/17 21:01 Last Admin: 04/26/17 21:19 Dose: 60 meq Propofol (Diprivan 20 Ml) Confirm Administered Dose 200 mg .ROUTE .[facility] ONE Stop: 04/23/17 12:24 - Exam Quality Assessment: Reports: DVT Prophylaxis General: Reports: Alert, Oriented, Cooperative, No Acute Distress, Other (Very [place] HEENT: Reports: Pupils Equal, EOMI, Mucous Membr. Moist/[place] Neck: Reports: Supple Lungs: Reports: Clear to Auscultation, Normal Respiratory Effort, Decreased Breath Sounds (bases) Cardiovascular: Reports: Regular Rate, Regular Rhythm GI/Abdominal Exam: Normal Bowel Sounds, Soft, Non-Tender (Female) Exam: Deferred Rectal (Female) Exam: Deferred Neurological: Reports: No New Focal Deficit, Strength Equal Bilateral Psy/Mental Status: Reports: Alert, Normal Affect, Normal Mood *Q Meaningful Use (DIS) - VTE *Q VTE Criteria *Q: - Stroke *Q Stroke Criteria *Q: - AMI *Q AMI Criteria *Q: <Tammy Connors - Last Filed: 04/27/17 14:24> Discharge Summary - Hospital Course Free Text/Narrative:: Inflammatory changes were reported verbally by the surgeon of record, path report was pending. Empiric treatment with steroids for possible Crohns disease. Needs GI evaluation and treatment as an outpatient. - Patient Summary/Data Consults: Consultations 04/22/17 21:18 Consult to Physician [CONS] Routine 04/26/17 13:13 Consult to Physical Therapy [PT Evaluation and Treatment] [CONS] Routine 04/26/17 13:14 Consult to Occupational Therapy [OT Evaluation and Treatment] [CONS] Routine - Patient Data Vitals - Most Recent: Last Vital Signs Temp 36.4 C 04/27/17 12:43 Pulse 62 04/27/17 12:47 Resp 18 04/27/17 12:43 BP 131/83 04/27/17 12:47 Pulse Ox 99 04/27/17 12:47 I&O - Last 24 hours: Intake & Output 04/26/17 04/27/17 04/27/17 22:59 06:59 14:59 Intake Total 870 500 60 Output Total 750 1000 Balance 120 -500 60 Lab Results - Last 24 hrs: Laboratory Results - last 24 hr 04/27/17 04/27/17 04/27/17 Range/Units 06:05 06:05 06:05 WBC 15.72 H (3.98-10.04) K/mm3 RBC 4.41 (3.98-5.22) M/mm3 Hgb 12.7 (11.2-15.7) gm/L Hct 37.5 (34.1-44.9) % MCV 85.0 (79.4-94.8) fl MCH 28.8 (25.6-32.2) pg MCHC 33.9 (32.2-35.5) g/dl RDW Std Deviation 45.5 (36.4-46.3) fL Plt Count 234 (182-369) K/mm3 MPV 10.2 (9.4-12.3) fl Neut % (Auto) 79.3 H (34.0-71.1) % Lymph % (Auto) 12.1 L (19.3-51.7) % Ida % (Auto) 7.4 (4.7-12.5) % Eos % (Auto) 0.1 L (0.7-5.8) Baso % (Auto) 0.2 (0.1-1.2) % Neut # (Auto) 12.48 H (1.56-6.13) K/mm3 Lymph # (Auto) 1.90 (1.18-3.74) K/mm3 Ida # (Auto) 1.16 H (0.24-0.36) K/mm3 Eos # (Auto) 0.01 L (0.04-0.36) K/mm3 Baso # (Auto) 0.03 (0.01-0.08) K/mm3 Manual Slide Review Normal smear Sodium 135 L (136-145) mEq/L Potassium 5.0 (3.5-5.1) mEq/L Chloride 103 (98-107) mEq/L Carbon Dioxide 24 (21-32) mEq/L Anion Gap 13.0 (5-15) BUN 13 (7-18) mg/dL Creatinine 1.1 H (0.55-1.02) mg/dL Est Cr Clr Drug Dosing 33.73 mL/min Estimated GFR (MDRD) 47 (>60) mL/min BUN/Creatinine Ratio 11.8 L (14-18) Glucose 128 H (83-115) mg/dL Calcium 8.9 (8.5-10.1) mg/dL Magnesium 2.4 (1.8-2.4) mg/dl C-Reactive Protein 0.4 (<1.0) mg/dL SERGIO Results - Last 24 hrs: Microbiology 04/23/17 13:21 Cryptosporidium/Giardia - Final Stool / Feces 04/23/17 13:21 Stool Culture - Final Stool / Feces - Final - Final Med Orders - Current: Current Medications Acetaminophen (Tylenol) 650 mg PO Q4H PRN PRN Reason: Pain (Mild 1-3)/fever Benzonatate (Tessalon Perles) 200 mg PO TID PRN PRN Reason: Cough Dronabinol (Marinol) 2.5 mg PO TIDAC [facility] Last Admin: 04/27/17 10:41 Dose: 2.5 mg Magnesium Oxide (Magnesium Oxide) 400 mg PO BID [facility] Last Admin: 04/27/17 08:40 Dose: 400 mg Methylprednisolone Sodium Succinate (Solu-Medrol) 80 mg IVPUSH DAILY [facility] Last Admin: 04/27/17 08:40 Dose: 80 mg Ondansetron HCl (Zofran) 4 mg IVPUSH Q4H PRN PRN Reason: Nausea/Vomiting Last Admin: 04/23/17 06:17 Dose: 4 mg Oral Electrolytes (Thermotabs) 1 each PO BID [facility] Stop: 04/29/17 09:01 Last Admin: 04/27/17 08:40 Dose: 1 each Pantoprazole Sodium (Protonix) 40 mg PO BIDAC [facility] Last Admin: 04/27/17 06:10 Dose: 40 mg Simvastatin (Zocor) 20 mg PO DAILY [facility] Last Admin: 04/27/17 08:40 Dose: 20 mg Sucralfate (Carafate) 1 gm PO ACBED [facility] Last Admin: 04/27/17 10:41 Dose: 1 gm Thiamine HCl (Vitamin B-1) 100 mg PO BEDTIME [facility] Last Admin: 04/26/17 21:18 Dose: 100 mg Discontinued Medications Fentanyl (Sublimaze) Confirm Administered Dose 100 mcg .ROUTE .STK-MED ONE Stop: 04/23/17 12:25 Furosemide (Lasix) 20 mg IVPUSH NOW ONE Stop: 04/22/17 20:43 Last Admin: 04/22/17 22:49 Dose: 20 mg Sodium Chloride (Normal Saline) 1,000 mls @ 150 mls/hr IV ASDIRECTED [facility] Last Admin: 04/23/17 20:09 Dose: 150 mls/hr Lidocaine HCl (Xylocaine-Mpf 1%) Confirm Administered Dose 4 mls @ as directed .ROUTE .STK-MED ONE Stop: 04/23/17 12:24 Lactated Ringer's (Ringers, Lactated) Confirm Administered Dose 1,000 mls @ as directed .ROUTE .STK-MED ONE Stop: 04/23/17 12:26 Magnesium Sulfate 2 gm/ Premix 50 mls @ 25 mls/hr IV Q2H [facility] Stop: 04/26/17 14:59 Last Admin: 04/26/17 16:17 Dose: 25 mls/hr Sodium Chloride (Normal Saline) 1,000 mls @ 75 mls/hr IV ASDIRECTED [facility] Stop: 04/26/17 23:00 Last Admin: 04/26/17 20:10 Dose: 75 mls/hr Alendronate 70mg (Tablet) 70 mg PO Q7D [facility] Polyethylene Glycol/Electrolytes (Golytely) 4,000 ml PO ONETIME ONE Stop: 04/22/17 21:18 Last Admin: 04/22/17 22:24 Dose: 4,000 ml Potassium Chloride (Klor-Con M20) 40 meq PO BID [facility] Stop: 04/26/17 21:01 Last Admin: 04/26/17 09:19 Dose: 40 meq Potassium Chloride (Klor-Con M20) 60 meq PO BID [facility] Stop: 04/26/17 21:01 Last Admin: 04/26/17 21:19 Dose: 60 meq Propofol (Diprivan 20 Ml) Confirm Administered Dose 200 mg .ROUTE .STK-MED ONE Stop: 04/23/17 12:24 *Q Meaningful Use (DIS) - VTE *Q VTE Criteria *Q: - Stroke *Q Stroke Criteria *Q: - AMI *Q AMI Criteria *Q:
== END 2017-04-27 15:12 | disposition other institution (70) | DRG 378 ==
LOC: JD.ED 16:22 → UNDOADMOB 20:20 → JD.MS 20:20 → INTOOBSV 20:20 → OBSVTOIN 20:20 → JD.MS 20:39 → OBSVTOIN 21:15 → UNDODISIN 04-27 15:12
PROVIDERS: ADMIT Internal Medicine Cardiovascular Disease; ATTEND Internal Medicine Cardiovascular Disease
PROC: 0DBN8ZX Excision of Sigmoid Colon, Via Natural or Artificial Opening Endoscopic, Diagnostic (ICD-10-PCS; principal; 2017-04-23)
DX: K27.4 Chronic or unspecified peptic ulcer, site unspecified, with hemorrhage (principal); K92.2 Gastrointestinal hemorrhage, unspecified; I13.0 Hypertensive heart and chronic kidney disease with heart failure and stage 1 through stage 4 chronic kidney disease, or unspecified chronic kidney disease; I50.32 Chronic diastolic (congestive) heart failure; E78.00 Pure hypercholesterolemia, unspecified; N18.3 Chronic kidney disease, stage 3 (moderate); E87.6 Hypokalemia; E83.42 Hypomagnesemia; R62.7 Adult failure to thrive; R53.1 Weakness; R41.3 Other amnesia; H54.7 Unspecified visual loss; Z66 Do not resuscitate; Z79.899 Other long term (current) drug therapy
CPT/HCPCS: 36415; 80053; 81001; 82553; 83880; 84484; 85025; 85610; 85730; 86140; 86850; 86900; 86901; 86922; 93005; 96360; 96361; 99285; J7040; P9016; P9612; 00811; 36430; 80048; 83735; 87046; 87328; 87329; 87493; 88305; 89055; 93010; 97110-GP; 97112-GP; 97116-GP; 97161-GP; 97165-GO; 97530-GO; 99223; 99231; 99232; 99239; A9270-GY; J2001; J2405; J2704; J2920; J3010; J3475; J7120; Q0167

== ENCOUNTER 2017-07-14 12:00 | Inpatient (IN) | payer MEDICARE, BC ==
[2017-07-14] MEDS ORDERED: Sodium Chloride 0.9% 500 ML IV ONE (12:48)
--- NOTE | 2017-07-14 12:51 | EDM.PDOC ---
ED HPI GENERAL MEDICAL PROBLEM - General Chief Complaint: Syncope Stated Complaint: [facility] Time Seen by Provider: 07/14/17 12:25 Source of Information: Reports: Patient History Limitations: Reports: No Limitations - History of Present Illness INITIAL COMMENTS - FREE TEXT/NARRATIVE: Patient is a 87-year-old female who was found in the bathroom on the toilet passed out. Patient who has a history of atrial fibrillation was found to have a blood pressure of 70/40. Patient was staring off for about 2 minutes not responding. O2 sats at that time were 74% on room air. EMS was contacted. On arrival patient was cold to touch a little foggy with some response. Upon arrival to the ED patient's O2 sats have ranged from 89-91%. Her rhythm appears to be A. fib with variable rate of 110 and 120. Blood pressure was 92/67 with admission. She is alert and responding. Patient does not recall the episode. States she has been short of breath, very weak, and has had a low appetite. Nephew is present and patient's power of civil attorney. He states patient has been going downhill over the past 3 months. She was evaluated April 2017 for GI bleed. Patient required blood transfusion at that time. Endoscopy confirmed peptic ulcer disease and was started on Carafate and Protonix. She also has a history of stage III chronic kidney disease which was stable at that point. She has a history of hypokalemia, hypo-magnesium, and vitamin D deficiency. She was diagnosed with failure to thrive. Past medical history: Peptic ulcer disease with GI bleed, dementia, hypokalemia , hypomagnesemia, failure to thrive, generalized weakness, osteoporosis, hypertension, renal insufficiency, anemia, vitamin D deficiency, and carotid atherosclerosis. - Related Data Allergies Allergy/AdvReac Type Severity Reaction Status Date / Time No Known Allergies Allergy Verified 04/22/17 16:34 Home Meds: Home Meds Benzonatate [Tessalon Perle] 200 mg PO TID PRN 04/17/17 [History] Potassium Chloride 10 meq PO DAILY 04/17/17 [History] amLODIPine [Norvasc] 10 mg PO DAILY 04/17/17 [History] Acetaminophen [Tylenol] 650 mg PO Q4H PRN tablet 04/22/17 [Rx] Ergocalciferol (Vitamin D2) [Vitamin D2] 50,000 units PO Q7D #4 cap 04/22/17 [Rx ] Magnesium Oxide 400 mg PO BID #60 tab 04/22/17 [Rx] Omeprazole 20 mg PO BIDAC #60 cap.sr 04/22/17 [Rx] Thiamine [Vitamin B-1] 100 mg PO BEDTIME #30 tablet 04/22/17 [Rx] Mirtazapine [Remeron] 45 mg PO DAILY 07/14/17 [History] Past Medical History HEENT History: Reports: Impaired Vision Cardiovascular History: Reports: High Cholesterol, Hypertension Respiratory History: Reports: None Gastrointestinal History: Reports: Other (See Below) Other Gastrointestinal History: stomach ulcers; current GI bleed Genitourinary History: Reports: Chronic Renal Insuffiency 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: Other OB/BYN History: Hysterectomy-young- dosn't remember when Musculoskeletal History: Reports: Fracture, Osteoporosis Neurological History: Reports: Other (See Below) Other Neuro History: confusion Psychiatric History: Reports: None Hematologic History: Reports: None Immunologic History: Reports: None Oncologic (Cancer) History: Reports: None Dermatologic History: Reports: None - Infectious Disease History Infectious Disease History: Reports: Chicken Pox - Past Surgical History HEENT Surgical History: Reports: Cataract Surgery Female Surgical History: Reports: Hysterectomy Endocrine Surgical History: Reports: None Social & Family History - Family History Family Medical History: Noncontributory - Tobacco Use Smoking Status *Q: Never Smoker Second Hand Smoke Exposure: No - Caffeine Use Caffeine Use: Reports: Coffee, Tea - Recreational Drug Use Recreational Drug Use: No - Living Situation & Occupation Living situation: Reports: , Extended Care Facility (Currently living at [facility]) Occupation: Retired ED ROS GENERAL - Review of Systems Review Of Systems: See Below Constitutional: Reports: Malaise, Weakness, Fatigue, Decreased Appetite HEENT: Reports: No Symptoms Respiratory: Reports: Shortness of Breath, Cough ED EXAM, GENERAL - Physical Exam Exam: See Below Exam Limited By: No Limitations General Appearance: Alert, WD/WN, Mild Distress Ears: Hearing Grossly Normal Nose: Normal Inspection Throat/Mouth: Normal Oropharynx, Normal Voice, No Airway Compromise, Other (Dry oromucosa) Neck: Normal Inspection, Non-Tender, Full Range of Motion. No: Supple, Carotid Bruit Respiratory/Chest: No Respiratory Distress, Lungs Clear, Normal Breath Sounds, No Accessory Muscle Use, Chest Non-Tender Cardiovascular: Normal Peripheral Pulses, Systolic Murmur, Irregularly Irregular Peripheral Pulses: 1+: Posterior Tibial (L), Posterior Tibial (R), 3+: Radial (L ), Radial (R) GI/Abdominal: Normal Bowel Sounds, Soft, Non-Tender, No Organomegaly, No Distention Extremities: Normal Range of Motion, Non-Tender, Pedal Edema Neurological: Alert, Oriented, CN II-XII Intact, No Motor/Sensory Deficits Psychiatric: Normal Affect, Depressed Mood Skin Exam: Warm, Dry, Intact, Pallor Course - Vital Signs Last Recorded V/S: Last Vital Signs Temp 97.3 F 07/14/17 20:47 Pulse 88 07/14/17 20:47 Resp 20 07/14/17 20:47 BP 138/94 H 07/14/17 20:47 Pulse Ox 90 L 07/14/17 20:47 - Orders/Labs/Meds Orders: Active Orders 24 hr Category Date Time Status Insert Kuhn Catheter [Insert Urinary Catheter] [OM.PC] Care 07/14/17 13:25 Ordered Stat UA W/MICROSCOPIC [URIN] Stat Lab 07/14/17 13:40 Ordered Medication Orders Acetaminophen (Tylenol) 650 mg PO Q4H PRN PRN Reason: Pain (Mild 1-3)/fever Hydrocodone Bitart/Acetaminophen (Chinle 325-5 Mg) 1 tab PO Q4H PRN PRN Reason: Pain (moderate 4-6) Albuterol/Ipratropium (Duoneb 3.0-0.5 Mg/3 Ml) 3 ml NEB Q4H PRN PRN Reason: Shortness Of Breath/wheezing Amlodipine Besylate (Norvasc) 10 mg PO DAILY [facility] Benzonatate (Tessalon Perles) 200 mg PO TID PRN PRN Reason: Cough Bisacodyl (Dulcolax) 5 mg PO DAILY PRN PRN Reason: Constipation Cholecalciferol (Vitamin D3) 2,000 units PO DAILY [facility] Docusate Sodium (Colace) 100 mg PO BID PRN PRN Reason: Constipation Promethazine HCl 6.25 mg/ (Sodium Chloride) 50.25 mls @ 100 mls/hr IV Q6H PRN PRN Reason: Nausea/Vomiting Levofloxacin (Levaquin) 750 mg PO Q48H [facility] Last Admin: 07/14/17 17:27 Dose: 750 mg Lorazepam (Ativan) 0.5 mg IV Q6H PRN PRN Reason: Anxiety Magnesium Oxide (Magnesium Oxide) 400 mg PO BID [facility] Last Admin: 07/14/17 21:05 Dose: Not Given Mirtazapine (Remeron) 45 mg PO BEDTIME [facility] Last Admin: 07/14/17 21:05 Dose: Not Given Morphine Sulfate (Morphine) 0.5 mg IVPUSH Q2H PRN PRN Reason: Pain (severe 7-10) Stop: 07/15/17 15:38 Ondansetron HCl (Zofran) 4 mg IV Q6H PRN PRN Reason: Nausea/Vomiting Pantoprazole Sodium (Protonix) 40 mg PO BIDMEALS [facility] Polyethylene Glycol (Miralax) 17 gm PO DAILY PRN PRN Reason: Constipation Potassium Chloride (Klor-Con 10) 10 meq PO DAILY [facility] Senna/Docusate Sodium (Senna Plus) 1 tab PO BID PRN PRN Reason: Constipation Temazepam (Restoril) 7.5 mg PO BEDTIME PRN PRN Reason: Sleep Thiamine HCl (Vitamin B-1) 100 mg PO BEDTIME [facility] Last Admin: 07/14/17 21:05 Dose: Not Given Labs: Laboratory Tests 07/14/17 07/14/17 07/14/17 Range/Units 12:20 12:20 12:20 WBC 16.43 H (3.98-10.04) K/mm3 RBC 5.21 (3.98-5.22) M/mm3 Hgb 14.7 (11.2-15.7) gm/L Hct 47.8 H (34.1-44.9) % MCV 91.7 (79.4-94.8) fl MCH 28.2 (25.6-32.2) pg MCHC 30.8 L (32.2-35.5) g/dl RDW Std Deviation 56.6 H (36.4-46.3) fL Plt Count 192 (182-369) K/mm3 MPV 10.8 (9.4-12.3) fl Neutrophils % (Manual) 72 H (40-60) % Band Neutrophils % 0 (0-10) % Lymphocytes % (Manual) 12 L (20-40) % Atypical Lymphs % 3 % Monocytes % (Manual) 12 H (2-10) % Eosinophils % (Manual) 0 L (0.7-5.8) % Basophils % (Manual) 1 (0.1-1.2) Platelet Estimate Adequate Plt Morphology Comment See note Hypochromasia 1+ slight Poikilocytosis 1+ slight Anisocytosis 1+ slight Microcytosis 1+ slight Macrocytosis 1+ slight Tear Drop Cells 1+ slight RBC Morph Comment Abnormal D-Dimer, Quantitative > 35.20 H (0.19-0.50) mg/L Sodium 145 (136-145) mEq/L Potassium 5.0 (3.5-5.1) mEq/L Chloride 111 H (98-107) mEq/L Carbon Dioxide 17 L (21-32) mEq/L Anion Gap 22.0 H (5-15) BUN 33 H (7-18) mg/dL Creatinine 2.0 H (0.55-1.02) mg/dL Est Cr Clr Drug Dosing 17.83 mL/min Estimated GFR (MDRD) 24 (>60) mL/min BUN/Creatinine Ratio 16.5 (14-18) Glucose 233 H (83-115) mg/dL Calcium 9.7 (8.5-10.1) mg/dL Magnesium 1.9 (1.8-2.4) mg/dl Total Bilirubin 0.8 (0.2-1.0) mg/dL AST 55 H (15-37) U/L ALT 26 (14-59) U/L Alkaline Phosphatase 205 H (46-116) U/L Troponin I 0.070 H* (0.00-0.056) ng/mL C-Reactive Protein 19.5 H* (<1.0) mg/dL NT-Pro-B Natriuret Pep (0-450) pg/mL Total Protein 8.0 (6.4-8.2) g/dl Albumin 2.4 L (3.4-5.0) g/dl Globulin 5.6 gm/dL Albumin/Globulin Ratio 0.4 L (1-2) TSH 3rd Generation (0.358-3.74) uIU/mL Urine Color (Yellow) Urine Appearance (Clear) Urine pH (5.0-8.0) Ur Specific Starlight (1.005-1.030) Urine Protein (Negative) Urine Glucose (UA) (Negative) Urine Ketones (Negative) Urine Occult Blood (Negative) Urine Nitrite (Negative) Urine Bilirubin (Negative) Urine Urobilinogen (0.2-1.0) Ur Leukocyte Esterase (Negative) Urine RBC (0-5) /hpf Urine WBC (0-5) /hpf Ur Epithelial Cells (0-5) /hpf Amorphous Sediment (NOT SEEN) /hpf Urine Bacteria (FEW) /hpf Hyaline Casts (0-5) /lpf Urine Mucus (FEW) /hpf 07/14/17 07/14/17 07/14/17 Range/Units 12:20 12:20 13:40 WBC (3.98-10.04) K/mm3 RBC (3.98-5.22) M/mm3 Hgb (11.2-15.7) gm/L Hct (34.1-44.9) % MCV (79.4-94.8) fl MCH (25.6-32.2) pg MCHC (32.2-35.5) g/dl RDW Std Deviation (36.4-46.3) fL Plt Count (182-369) K/mm3 MPV (9.4-12.3) fl Neutrophils % (Manual) (40-60) % Band Neutrophils % (0-10) % Lymphocytes % (Manual) (20-40) % Atypical Lymphs % % Monocytes % (Manual) (2-10) % Eosinophils % (Manual) (0.7-5.8) % Basophils % (Manual) (0.1-1.2) Platelet Estimate Plt Morphology Comment Hypochromasia Poikilocytosis Anisocytosis Microcytosis Macrocytosis Tear Drop Cells RBC Morph Comment D-Dimer, Quantitative (0.19-0.50) mg/L Sodium (136-145) mEq/L Potassium (3.5-5.1) mEq/L Chloride (98-107) mEq/L Carbon Dioxide (21-32) mEq/L Anion Gap (5-15) BUN (7-18) mg/dL Creatinine (0.55-1.02) mg/dL Est Cr Clr Drug Dosing mL/min Estimated GFR (MDRD) (>60) mL/min BUN/Creatinine Ratio (14-18) Glucose (83-115) mg/dL Calcium (8.5-10.1) mg/dL Magnesium (1.8-2.4) mg/dl Total Bilirubin (0.2-1.0) mg/dL AST (15-37) U/L ALT (14-59) U/L Alkaline Phosphatase (46-116) U/L Troponin I (0.00-0.056) ng/mL C-Reactive Protein (<1.0) mg/dL NT-Pro-B Natriuret Pep 74974 H (0-450) pg/mL Total Protein (6.4-8.2) g/dl Albumin (3.4-5.0) g/dl Globulin gm/dL Albumin/Globulin Ratio (1-2) TSH 3rd Generation 2.897 (0.358-3.74) uIU/mL Urine Color Yellow (Yellow) Urine Appearance Slt cloudy H (Clear) Urine pH 6.0 (5.0-8.0) Ur Specific Starlight 1.020 (1.005-1.030) Urine Protein 1+ H (Negative) Urine Glucose (UA) Negative (Negative) Urine Ketones Negative (Negative) Urine Occult Blood Negative (Negative) Urine Nitrite Negative (Negative) Urine Bilirubin Negative (Negative) Urine Urobilinogen 0.2 (0.2-1.0) Ur Leukocyte Esterase Negative (Negative) Urine RBC Not seen (0-5) /hpf Urine WBC 0-5 (0-5) /hpf Ur Epithelial Cells Not seen (0-5) /hpf Amorphous Sediment Many H (NOT SEEN) /hpf Urine Bacteria Few (FEW) /hpf Hyaline Casts 0-5 (0-5) /lpf Urine Mucus Not seen (FEW) /hpf Meds: Medications Generic Name Dose Route Start Last Admin Trade Name Freq PRN Reason Stop Dose Admin Acetaminophen 650 mg 07/14/17 15:40 Tylenol PO Q4H PRN Pain (Mild 1-3)/fever Hydrocodone Bitart/Acetaminophen 1 tab 07/14/17 15:33 Chinle 325-5 Mg PO Q4H PRN Pain (moderate 4-6) Albuterol/Ipratropium 3 ml 07/14/17 15:33 Duoneb 3.0-0.5 Mg/3 Ml NEB Q4H PRN Shortness Of Breath/wheezing Amlodipine Besylate 10 mg 07/15/17 09:00 Norvasc PO DAILY [facility] Benzonatate 200 mg 07/14/17 15:40 Tessalon Perles PO TID PRN Cough Bisacodyl 5 mg 07/14/17 15:33 Dulcolax PO DAILY PRN Constipation Cholecalciferol 2,000 units 07/15/17 09:00 Vitamin D3 PO DAILY [facility] Docusate Sodium 100 mg 07/14/17 15:33 Colace PO BID PRN Constipation Promethazine HCl 6.25 mg/ 50.25 mls @ 100 mls/hr 07/14/17 15:33 Sodium Chloride IV Q6H PRN Nausea/Vomiting Levofloxacin 750 mg 07/14/17 16:00 07/14/17 17:27 Levaquin PO 750 mg Q48H [facility] Administration Lorazepam 0.5 mg 07/14/17 15:33 Ativan IV Q6H PRN Anxiety Magnesium Oxide 400 mg 07/14/17 21:00 07/14/17 21:05 Magnesium Oxide PO Not Given BID [facility] Mirtazapine 45 mg 07/14/17 21:00 07/14/17 21:05 Remeron PO Not Given BEDTIME [facility] Morphine Sulfate 0.5 mg 07/14/17 15:33 Morphine IVPUSH 07/15/17 15:38 Q2H PRN Pain (severe 7-10) Ondansetron HCl 4 mg 07/14/17 15:33 Zofran IV Q6H PRN Nausea/Vomiting Pantoprazole Sodium 40 mg 07/15/17 07:15 Protonix PO BIDMEALS [facility] Polyethylene Glycol 17 gm 07/14/17 15:33 Miralax PO DAILY PRN Constipation Potassium Chloride 10 meq 07/15/17 09:00 Klor-Con 10 PO DAILY [facility] Senna/Docusate Sodium 1 tab 07/14/17 15:33 Senna Plus PO BID PRN Constipation Temazepam 7.5 mg 07/14/17 15:33 Restoril PO BEDTIME PRN Sleep Thiamine HCl 100 mg 07/14/17 21:00 07/14/17 21:05 Vitamin B-1 PO Not Given BEDTIME [facility] Discontinued Medications Generic Name Dose Route Start Last Admin Trade Name Freq PRN Reason Stop Dose Admin Dronabinol 2.5 mg 07/14/17 15:40 07/14/17 21:05 Marinol PO Not Given TID [facility] Ergocalciferol 50,000 units 07/14/17 16:00 07/14/17 16:52 Vitamin D2 PO Not Given Q7D@0900 [facility] Furosemide 60 mg 07/14/17 13:48 07/14/17 14:05 Lasix IVPUSH 07/14/17 13:49 60 mg NOW ONE Administration Sodium Chloride 500 mls @ 999 mls/hr 07/14/17 12:48 07/14/17 13:00 Normal Saline IV 07/14/17 13:18 999 mls/hr .BOLUS ONE Administration Ceftriaxone Sodium 1 gm/ 100 mls @ 200 mls/hr 07/14/17 13:53 07/14/17 14:05 Sodium Chloride IV 07/14/17 14:22 Not Given ONETIME ONE Omeprazole 20 mg 07/14/17 16:00 07/15/17 05:15 Omeprazole PO Not Given BIDAC [facility] - Re-Assessments/Exams Free Text/Narrative Re-Assessment/Exam: IV established with NS bolus 500mls. Initial labs and studies include: CBC, chem 14, CRP, d-dimer, magnesium, proBNP , troponin, UA quick in and out catheter, chest x-ray one view, and EKG. O2 sats were dipping below 90% on room air. O2 established with nasal cannula 2 L/m. O2 sat 95%. In addition on examination patient's blood pressure was 92/67 with variable heart rate 110-120 A. fib with respiratory rate of 24. 1243 94/76, HR 111 variable, SPO2 95% on 2LPM. Stool Hemoccult was negative for blood. 1325 d-dimer 35.20. Troponin 0.070. Blood pressure 109/78 with heart rate 112/ 120 variable. EKG: Atrial fibrillation at a rate of [address] changes noted. Chest x-ray impression: severely rotated right with impression of diffuse pulmonary vascularization. Final interpretation is pending. Reviewed with Dr. Díaz. Labs reviewed: White blood cell count 16.43, hemoglobin 14.7, platelet count 192 , differential is pending. D-dimer 35.2. Sodium 145. Potassium 5.0. EKG 22. BUN 33. Creatinine 2.0. Glucose 233. Troponin 0.070, CRP 9.5, proBNP 11,000 418. 1351 BP 100/60 HR 102, A-fib. Heart rate decreased with the above bolus of IV fluids. Patient is a resident of assisted living facility. Nephew present is requesting comfort care. I have discontinued fluids and ordered lasix 60mg IVP. [address] Padilla [employer] hospital[employer]. He will see patient in the E.D. UA is pending. Chest x-ray impression: Increased density along the lateral right lung base possibly due to pneumonia. Ordered rocephin IV and lasix 60mg IVP. 1403 Dr. Padilla has stopped by and states patient would be admitted inpatient for comfort care measures. MCG being completed. Dr. Padilla request ABX order discontinued. 07/14/17 15:05 Admission order has been placed. UA slightly cloudy, protein one plus, amorphous sediment many. Departure - Departure Time of Disposition: 14:25 Disposition: Admitted As Inpatient 66 Condition: Serious Clinical Impression: End of life care, Admission for end of life care - My Orders Last 24 Hours: My Active Orders 07/14/17 13:25 Insert Kuhn Catheter [Insert Urinary Catheter] [OM.PC] Stat 07/14/17 13:40 UA W/MICROSCOPIC [URIN] Stat - Assessment/Plan Last 24 Hours: My Active Orders 07/14/17 13:25 Insert Kuhn Catheter [Insert Urinary Catheter] [OM.PC] Stat 07/14/17 13:40 UA W/MICROSCOPIC [URIN] Stat
--- NOTE | 2017-07-14 13:40 | CR ---
Chest: Portable view of the chest was obtained. Comparison: Prior chest x-ray of 04/17/17. Increased density is seen along the lateral right lung base as an interval change from previous exam. Left lung is clear. Heart size and mediastinum are within normal limits for portable technique. Atherosclerotic calcification is noted within the aortic knob. Impression: 1. Increased density along the lateral right lung base possibly due to pneumonia. 2. Other incidental findings. Diagnostic code #3
[2017-07-14] MEDS ORDERED: Furosemide 40 MG/4 ML VIAL IVPUSH ONE (13:48)
[2017-07-14] MEDS ORDERED: cefTRIAXone 1 GM in Sodium Chloride 0.9% 100 ML IV ONE (13:53)
--- NOTE | 2017-07-14 15:31 | PCM.HP ---
H&P History of Present Illness - General Date of Service: 07/14/17 Admit Problem/Dx: Admission Diagnosis/Problem Admission Diagnosis/Problem Palliative care Source of Information: Patient, Family, Old Records, Provider, RN Notes Reviewed History Limitations: Reports: Altered Mental Status - History of Present Illness Initial Comments - Free Text/Narative: This is an 87 year old elderly white female with past medical history of Impaired Vision, HTN, HLD, Hx/o PUD, CKD Stage 3, Osteoporosis, and Memory Impairment/Confusion was brought in from [facility] for evaluation of breast unresponsiveness. Patient is alert and awake but poor historian. History of present illness is very limited. However after discussion with her DPOA (nephew), patient has not been doing well for the past 3 months. He states, "she has been giving up". Patient has poor intake and has been mostly bed-bound. Her brother who is known to the hospitalist service, states that they thought "she is going to pass away at [facility]". When asked why she is here in the hospital, patient was not able to provide an appropriate answer. Her initial workup in emergency department shows a CBC remarkable for WBC of 16.43, hematocrit of 47.8, MCHC of 30.8, RDW of 56.6, neutrophils of 72%, lymphocytes of 12%, and monocytes of 12%. Her d-dimer is greater than 35.20. Her chemistry is remarkable for chloride of 111, carbon dioxide of 17, anion gap 22, BUN of 33, creatinine of 2, glucose of 233, AST of 55, alkaline phosphatase of 505, initial troponin of 0.07, CRP of 19.5, proBNP of 11,418, and albumin of 2.4. Her UA is not suggestive for UTI. Her chest x-ray shows opacification in the right lung base.. Patient is being admitted for end-of-life care per DPOA's request. She is DNR/ DNI comfort measures. - Related Data Allergies/Adverse Reactions: Allergies Allergy/AdvReac Type Severity Reaction Status Date / Time No Known Allergies Allergy Verified 04/22/17 16:34 Home Medications: Home Meds Benzonatate [Tessalon Perle] 200 mg PO TID PRN 04/17/17 [History] Potassium Chloride 10 meq PO DAILY 04/17/17 [History] amLODIPine [Norvasc] 10 mg PO DAILY 04/17/17 [History] Acetaminophen [Tylenol] 650 mg PO Q4H PRN tablet 04/22/17 [Rx] Ergocalciferol (Vitamin D2) [Vitamin D2] 50,000 units PO Q7D #4 cap 04/22/17 [Rx ] Magnesium Oxide 400 mg PO BID #60 tab 04/22/17 [Rx] Omeprazole 20 mg PO BIDAC #60 cap.sr 04/22/17 [Rx] Thiamine [Vitamin B-1] 100 mg PO BEDTIME #30 tablet 04/22/17 [Rx] Mirtazapine [Remeron] 45 mg PO DAILY 07/14/17 [History] Past Medical History HEENT History: Reports: Impaired Vision Cardiovascular History: Reports: High Cholesterol, Hypertension Respiratory History: Reports: None Gastrointestinal History: Reports: Other (See Below) Other Gastrointestinal History: stomach ulcers; current GI bleed Genitourinary History: Reports: Chronic Renal Insuffiency APPLIED RESEARCH DIRECTOR History: Reports: Other OB/BYN History: Hysterectomy-young- dosn't remember when Musculoskeletal History: Reports: Fracture, Osteoporosis Neurological History: Reports: Other (See Below) Other Neuro History: confusion Psychiatric History: Reports: None Hematologic History: Reports: None Immunologic History: Reports: None Oncologic (Cancer) History: Reports: None Dermatologic History: Reports: None - Infectious Disease History Infectious Disease History: Reports: Chicken Pox - Past Surgical History HEENT Surgical History: Reports: Cataract Surgery Female Surgical History: Reports: Hysterectomy Endocrine Surgical History: Reports: None Social & Family History - Family History Family Medical History: Noncontributory - Tobacco Use Smoking Status *Q: Never Smoker Second Hand Smoke Exposure: No - Caffeine Use Caffeine Use: Reports: Coffee, Tea - Recreational Drug Use Recreational Drug Use: No - Living Situation & Occupation Living situation: Reports: , Extended Care Facility (Currently living at [facility]) Occupation: Retired H&P Review of Systems - Review of Systems: Review Of Systems: See Below General: Reports: Weakness, Decreased Appetite. Denies: Fever, Fatigue HEENT: Reports: Other (dry mouth) Pulmonary: Denies: Shortness of Breath Cardiovascular: Reports: Edema. Denies: Palpitations, Dyspnea on Exertion Gastrointestinal: Reports: Decreased Appetite. Denies: Abdominal Pain, Difficulty Swallowing, Nausea, Vomiting Genitourinary: Reports: No Symptoms Musculoskeletal: Reports: No Symptoms Skin: Denies: Jaundice, Mottled, Pallor, Diaphoresis Psychiatric: Denies: Depression, Anxiety, Agitation, Hallucinations Neurological: Reports: Confusion (baseline confusion) Hematologic/Lymphatic: Reports: No Symptoms Immunologic: Reports: No Symptoms Exam - Exam Exam: See Below - Vital Signs Vital Signs: Last Vital Signs Temp 36.7 C 07/14/17 12:10 Pulse 112 H 07/14/17 12:10 Resp 38 H 07/14/17 12:10 BP 150/117 H 07/14/17 12:10 Pulse Ox 94 L 07/14/17 12:10 Weight: 72.575 kg - Exam General: Alert, Cooperative, Mild Distress HEENT: Conjunctiva Clear, EACs Clear, EOMI, Hearing Intact, Nares Patent, Normal Nasal Septum, Pupils Equal, Pupils Reactive. No: Mucosa Moist & [place], Posterior Pharynx Clear Neck: Supple, Trachea Midline, +2 Carotid Pulse wo Bruit Lungs: Normal Respiratory Effort, Decreased Breath Sounds Cardiovascular: Regular Rhythm, Tachycardia GI/Abdominal Exam: Normal Bowel Sounds, Soft, Non-Tender, No Organomegaly, No Distention, No Abnormal Bruit, No Mass (Female) Exam: Deferred Rectal (Female) Exam: Deferred Back Exam: Normal Inspection, Decreased Range of Motion Extremities: Normal Inspection, Normal Range of Motion, Other (peripheral edema) Peripheral Pulses: 1+: Posterior Tibial (L), Posterior Tibial (R), Dorsalis Pedis (L), Dorsalis Pedis (R) Skin: Warm, Dry, Intact Neuro Extensive - Mental Status: Normal Mood/Affect Neuro Extensive - Motor, Sensory, Reflexes: CN II-XII Intact (limited but intact ), Abnormal Gait Psychiatric: Alert, Normal Affect, Normal Mood - Patient Data Lab Results Last 24 hrs: Laboratory Results - last 24 hr 07/14/17 07/14/17 07/14/17 Range/Units 12:20 12:20 12:20 WBC 16.43 H (3.98-10.04) K/mm3 RBC 5.21 (3.98-5.22) M/mm3 Hgb 14.7 (11.2-15.7) gm/L Hct 47.8 H (34.1-44.9) % MCV 91.7 (79.4-94.8) fl MCH 28.2 (25.6-32.2) pg MCHC 30.8 L (32.2-35.5) g/dl RDW Std Deviation 56.6 H (36.4-46.3) fL Plt Count 192 (182-369) K/mm3 MPV 10.8 (9.4-12.3) fl Neutrophils % (Manual) 72 H (40-60) % Band Neutrophils % 0 (0-10) % Lymphocytes % (Manual) 12 L (20-40) % Atypical Lymphs % 3 % Monocytes % (Manual) 12 H (2-10) % Eosinophils % (Manual) 0 L (0.7-5.8) % Basophils % (Manual) 1 (0.1-1.2) Platelet Estimate Adequate Plt Morphology Comment See note Hypochromasia 1+ slight Poikilocytosis 1+ slight Anisocytosis 1+ slight Microcytosis 1+ slight Macrocytosis 1+ slight Tear Drop Cells 1+ slight RBC Morph Comment Abnormal D-Dimer, Quantitative > 35.20 H (0.19-0.50) mg/L Sodium 145 (136-145) mEq/L Potassium 5.0 (3.5-5.1) mEq/L Chloride 111 H (98-107) mEq/L Carbon Dioxide 17 L (21-32) mEq/L Anion Gap 22.0 H (5-15) BUN 33 H (7-18) mg/dL Creatinine 2.0 H (0.55-1.02) mg/dL Est Cr Clr Drug Dosing 17.83 mL/min Estimated GFR (MDRD) 24 (>60) mL/min BUN/Creatinine Ratio 16.5 (14-18) Glucose 233 H (83-115) mg/dL Calcium 9.7 (8.5-10.1) mg/dL Magnesium 1.9 (1.8-2.4) mg/dl Total Bilirubin 0.8 (0.2-1.0) mg/dL AST 55 H (15-37) U/L ALT 26 (14-59) U/L Alkaline Phosphatase 205 H (46-116) U/L Troponin I 0.070 H* (0.00-0.056) ng/mL C-Reactive Protein 19.5 H* (<1.0) mg/dL NT-Pro-B Natriuret Pep (0-450) pg/mL Total Protein 8.0 (6.4-8.2) g/dl Albumin 2.4 L (3.4-5.0) g/dl Globulin 5.6 gm/dL Albumin/Globulin Ratio 0.4 L (1-2) TSH 3rd Generation (0.358-3.74) uIU/mL Urine Color (Yellow) Urine Appearance (Clear) Urine pH (5.0-8.0) Ur Specific [place] (1.005-1.030) Urine Protein (Negative) Urine Glucose (UA) (Negative) Urine Ketones (Negative) Urine Occult Blood (Negative) Urine Nitrite (Negative) Urine Bilirubin (Negative) Urine Urobilinogen (0.2-1.0) Ur Leukocyte Esterase (Negative) Urine RBC (0-5) /hpf Urine WBC (0-5) /hpf Ur Epithelial Cells (0-5) /hpf Amorphous Sediment (NOT SEEN) /hpf Urine Bacteria (FEW) /hpf Hyaline Casts (0-5) /lpf Urine Mucus (FEW) /hpf 07/14/17 07/14/17 07/14/17 Range/Units 12:20 12:20 13:40 WBC (3.98-10.04) K/mm3 RBC (3.98-5.22) M/mm3 Hgb (11.2-15.7) gm/L Hct (34.1-44.9) % MCV (79.4-94.8) fl MCH (25.6-32.2) pg MCHC (32.2-35.5) g/dl RDW Std Deviation (36.4-46.3) fL Plt Count (182-369) K/mm3 MPV (9.4-12.3) fl Neutrophils % (Manual) (40-60) % Band Neutrophils % (0-10) % Lymphocytes % (Manual) (20-40) % Atypical Lymphs % % Monocytes % (Manual) (2-10) % Eosinophils % (Manual) (0.7-5.8) % Basophils % (Manual) (0.1-1.2) Platelet Estimate Plt Morphology Comment Hypochromasia Poikilocytosis Anisocytosis Microcytosis Macrocytosis Tear Drop Cells RBC Morph Comment D-Dimer, Quantitative (0.19-0.50) mg/L Sodium (136-145) mEq/L Potassium (3.5-5.1) mEq/L Chloride (98-107) mEq/L Carbon Dioxide (21-32) mEq/L Anion Gap (5-15) BUN (7-18) mg/dL Creatinine (0.55-1.02) mg/dL Est Cr Clr Drug Dosing mL/min Estimated GFR (MDRD) (>60) mL/min BUN/Creatinine Ratio (14-18) Glucose (83-115) mg/dL Calcium (8.5-10.1) mg/dL Magnesium (1.8-2.4) mg/dl Total Bilirubin (0.2-1.0) mg/dL AST (15-37) U/L ALT (14-59) U/L Alkaline Phosphatase (46-116) U/L Troponin I (0.00-0.056) ng/mL C-Reactive Protein (<1.0) mg/dL NT-Pro-B Natriuret Pep 76228 H (0-450) pg/mL Total Protein (6.4-8.2) g/dl Albumin (3.4-5.0) g/dl Globulin gm/dL Albumin/Globulin Ratio (1-2) TSH 3rd Generation 2.897 (0.358-3.74) uIU/mL Urine Color Yellow (Yellow) Urine Appearance Slt cloudy H (Clear) Urine pH 6.0 (5.0-8.0) Ur Specific [place]ney 1.020 (1.005-1.030) Urine Protein 1+ H (Negative) Urine Glucose (UA) Negative (Negative) Urine Ketones Negative (Negative) Urine Occult Blood Negative (Negative) Urine Nitrite Negative (Negative) Urine Bilirubin Negative (Negative) Urine Urobilinogen 0.2 (0.2-1.0) Ur Leukocyte Esterase Negative (Negative) Urine RBC Not seen (0-5) /hpf Urine WBC 0-5 (0-5) /hpf Ur Epithelial Cells Not seen (0-5) /hpf Amorphous Sediment Many H (NOT SEEN) /hpf Urine Bacteria Few (FEW) /hpf Hyaline Casts 0-5 (0-5) /lpf Urine Mucus Not seen (FEW) /hpf Result Diagrams: 07/14/17 12:20 07/14/17 12:20 Problem List Initiated/Reviewed/Updated: Yes Orders Last 24hrs: Active Orders 24 hr Category Date Time Status Admission Status [Patient Status] [ADT] Routine ADT 07/14/17 15:03 Active Cardiac Monitoring [RC] . DIRECTED Care 07/14/17 15:03 Active EKG 12 Lead [EKG Documentation Completion] [RC] STAT Care 07/14/17 12:47 Active Insert Kuhn Catheter [Insert Urinary Catheter] [OM.PC] Care 07/14/17 13:25 Ordered Stat Urinary Catheter Assessment [RC] ASDIRECTED Care 07/14/17 13:25 Active UA W/MICROSCOPIC [URIN] Stat Lab 07/14/17 13:40 Ordered Assessment/Plan Comment:: Assessment/Plan: Acute: Failure To Thrive/Loss of Will to Live - Poor appetite and has been expressing wishes to go for the past 3 months per DPOA (nephew) - She is on Remeron for stimulant; will add Marinol 250 mg po TID before each meal - Dietary consult for nutritional assessment End of Life Care - Palliative Care/Comfort Measures Only - DPOA wants comfort measures - Her brother says "they thought she may go at [place]" - Conservative management only - Hospice Consult - Spiritual Care Consult CAP - WBC 16.43; CRP 19.5 - CXR opacification on right base - Oral antibiotic po daily; avoid IV Acute on CKD - GFR is stage 3; she is at Stage 4 - IV fluids for hydration [place] [address] - Considerable peripheral edema - PRN diuretic Elevated D-Dimer - D-Dimer > 35 - Cannot r/o DVT/PE - Avoid Chest CTA due to ALEJA - No aggressive treatment/tests per DPOA Chronic: Impaired Vision HTN HLD Hx/o PUD CKD Stage 3 Osteoporosis Memory Impairment/Confusion Plan: Admit to the floor for End of Life Care Conservative Management only per DPOA Resume Home Meds No Daily Labs She can eat whatever she wants PT/OT consult if appropriate DVT PPx: SCDs; Lovenox sub CI 2/2 significantly reduced renal function SW/CM for d/c planning Code status: DNR/DNI/Comfort Measures
[2017-07-14] MEDS ORDERED: LORazepam 2 MG/ML SDV IV PRN (15:33)
[2017-07-14] MEDS ORDERED: Docusate Sodium 100 MG Cap PO PRN (15:33)
[2017-07-14] MEDS ORDERED: Acetaminophen/HYDROcodone 325-5 MG Tab PO PRN (15:33)
[2017-07-14] MEDS ORDERED: Promethazine 6.25 MG in Sodium Chloride 0.9% 50 ML IV PRN (15:33)
[2017-07-14] MEDS ORDERED: Acetaminophen 325 MG Tab PO PRN ×2 (15:33→15:40)
[2017-07-14] MEDS ORDERED: Temazepam 7.5 MG Cap PO PRN (15:33)
[2017-07-14] MEDS ORDERED: Morphine 2 MG/ML Syringe IVPUSH PRN (15:33)
[2017-07-14] MEDS ORDERED: Ondansetron 4 MG/2 ML SDV IV PRN (15:33)
[2017-07-14] MEDS ORDERED: Albuterol/Ipratropium 3.0-0.5 MG/3 ML Neb Soln NEB PRN (15:33)
[2017-07-14] MEDS ORDERED: Polyethylene Glycol 3350 Powder 17 GM Packet PO PRN (15:33)
[2017-07-14] MEDS ORDERED: Bisacodyl 5 MG Tab PO PRN (15:33)
[2017-07-14] MEDS ORDERED: Benzonatate 100 MG Cap PO PRN (15:40)
[2017-07-14] MEDS ORDERED: Ergocalciferol (Vitamin D2) 50,000 Unit Cap PO SCH (16:00)
[2017-07-14] MEDS ORDERED: Levofloxacin 750 MG Tab PO SCH (16:00)
[2017-07-14] MEDS: Dronabinol 2.5 MG Cap PO SCH ×2 (16:51→21:05)
[2017-07-14] MEDS: Omeprazole 20 MG Cap.CR PO SCH (16:52)
[2017-07-14] MEDS ORDERED: Thiamine 100 MG Tab PO SCH (21:00)
[2017-07-14] MEDS ORDERED: Mirtazapine 15 MG Tab PO SCH (21:00)
[2017-07-14] MEDS: Magnesium Oxide 400 MG Tab PO SCH (21:05)
[2017-07-15] MEDS: Omeprazole 20 MG Cap.CR PO SCH (05:15)
--- NOTE | 2017-07-15 06:40 | PCM.PN ---
- General Info Date of Service: 07/15/17 Admission Dx/Problem (Free Text): Admission Diagnosis/Problem Admission Diagnosis/Problem Palliative care Subjective Update: Follow up Functional Status: Reports: Pain Controlled, Urinating - Review of Systems General: Reports: Weakness, Malaise. Denies: Fever, Chills HEENT: Reports: No Symptoms Pulmonary: Denies: Shortness of Breath Cardiovascular: Denies: Chest Pain, Palpitations, Dyspnea on Exertion, Lightheadedness Gastrointestinal: Reports: Decreased Appetite. Denies: Abdominal Pain, Nausea, Vomiting Genitourinary: Reports: No Symptoms Musculoskeletal: Reports: No Symptoms Skin: Denies: Jaundice, Mottled, Pallor, Diaphoresis, Pruritis, Rash Neurological: Reports: Confusion, Weakness, Gait Disturbance. Denies: Difficulty Walking Psychiatric: Denies: Depression, Anxiety, Agitation, Hallucinations Systems Review Comment:: No overnight or acute issues. She is has been refusing her pills and meals. She is however comfortable and in no acute distress. When asked if she needed something, she stated "I wanna go home". - Patient Data Vitals - Most Recent: Last Vital Signs Temp 36.3 C 07/14/17 20:47 Pulse 88 07/14/17 20:47 Resp 20 07/14/17 20:47 BP 138/94 H 07/14/17 20:47 Pulse Ox 90 L 07/14/17 20:47 Weight - Most Recent: 66.361 kg I&O - Last 24 Hours: Intake & Output 07/14/17 07/14/17 07/15/17 14:59 22:59 06:59 Intake Total 200 Output Total 800 500 Balance -800 -300 Lab Results Last 24 Hours: Laboratory Results - last 24 hr 07/14/17 07/14/17 07/14/17 Range/Units 12:20 12:20 12:20 WBC 16.43 H (3.98-10.04) K/mm3 RBC 5.21 (3.98-5.22) M/mm3 Hgb 14.7 (11.2-15.7) gm/L Hct 47.8 H (34.1-44.9) % MCV 91.7 (79.4-94.8) fl MCH 28.2 (25.6-32.2) pg MCHC 30.8 L (32.2-35.5) g/dl RDW Std Deviation 56.6 H (36.4-46.3) fL Plt Count 192 (182-369) K/mm3 MPV 10.8 (9.4-12.3) fl Neutrophils % (Manual) 72 H (40-60) % Band Neutrophils % 0 (0-10) % Lymphocytes % (Manual) 12 L (20-40) % Atypical Lymphs % 3 % Monocytes % (Manual) 12 H (2-10) % Eosinophils % (Manual) 0 L (0.7-5.8) % Basophils % (Manual) 1 (0.1-1.2) Platelet Estimate Adequate Plt Morphology Comment See note Hypochromasia 1+ slight Poikilocytosis 1+ slight Anisocytosis 1+ slight Microcytosis 1+ slight Macrocytosis 1+ slight Tear Drop Cells 1+ slight RBC Morph Comment Abnormal D-Dimer, Quantitative > 35.20 H (0.19-0.50) mg/L Sodium 145 (136-145) mEq/L Potassium 5.0 (3.5-5.1) mEq/L Chloride 111 H (98-107) mEq/L Carbon Dioxide 17 L (21-32) mEq/L Anion Gap 22.0 H (5-15) BUN 33 H (7-18) mg/dL Creatinine 2.0 H (0.55-1.02) mg/dL Est Cr Clr Drug Dosing 17.83 mL/min Estimated GFR (MDRD) 24 (>60) mL/min BUN/Creatinine Ratio 16.5 (14-18) Glucose 233 H (83-115) mg/dL Calcium 9.7 (8.5-10.1) mg/dL Magnesium 1.9 (1.8-2.4) mg/dl Total Bilirubin 0.8 (0.2-1.0) mg/dL AST 55 H (15-37) U/L ALT 26 (14-59) U/L Alkaline Phosphatase 205 H (46-116) U/L Troponin I 0.070 H* (0.00-0.056) ng/mL C-Reactive Protein 19.5 H* (<1.0) mg/dL NT-Pro-B Natriuret Pep (0-450) pg/mL Total Protein 8.0 (6.4-8.2) g/dl Albumin 2.4 L (3.4-5.0) g/dl Globulin 5.6 gm/dL Albumin/Globulin Ratio 0.4 L (1-2) TSH 3rd Generation (0.358-3.74) uIU/mL Urine Color (Yellow) Urine Appearance (Clear) Urine pH (5.0-8.0) Ur Specific [place] (1.005-1.030) Urine Protein (Negative) Urine Glucose (UA) (Negative) Urine Ketones (Negative) Urine Occult Blood (Negative) Urine Nitrite (Negative) Urine Bilirubin (Negative) Urine Urobilinogen (0.2-1.0) Ur Leukocyte Esterase (Negative) Urine RBC (0-5) /hpf Urine WBC (0-5) /hpf Ur Epithelial Cells (0-5) /hpf Amorphous Sediment (NOT SEEN) /hpf Urine Bacteria (FEW) /hpf Hyaline Casts (0-5) /lpf Urine Mucus (FEW) /hpf MRSA (PCR) 07/14/17 07/14/17 07/14/17 Range/Units 12:20 12:20 13:40 WBC (3.98-10.04) K/mm3 RBC (3.98-5.22) M/mm3 Hgb (11.2-15.7) gm/L Hct (34.1-44.9) % MCV (79.4-94.8) fl MCH (25.6-32.2) pg MCHC (32.2-35.5) g/dl RDW Std Deviation (36.4-46.3) fL Plt Count (182-369) K/mm3 MPV (9.4-12.3) fl Neutrophils % (Manual) (40-60) % Band Neutrophils % (0-10) % Lymphocytes % (Manual) (20-40) % Atypical Lymphs % % Monocytes % (Manual) (2-10) % Eosinophils % (Manual) (0.7-5.8) % Basophils % (Manual) (0.1-1.2) Platelet Estimate Plt Morphology Comment Hypochromasia Poikilocytosis Anisocytosis Microcytosis Macrocytosis Tear Drop Cells RBC Morph Comment D-Dimer, Quantitative (0.19-0.50) mg/L Sodium (136-145) mEq/L Potassium (3.5-5.1) mEq/L Chloride (98-107) mEq/L Carbon Dioxide (21-32) mEq/L Anion Gap (5-15) BUN (7-18) mg/dL Creatinine (0.55-1.02) mg/dL Est Cr Clr Drug Dosing mL/min Estimated GFR (MDRD) (>60) mL/min BUN/Creatinine Ratio (14-18) Glucose (83-115) mg/dL Calcium (8.5-10.1) mg/dL Magnesium (1.8-2.4) mg/dl Total Bilirubin (0.2-1.0) mg/dL AST (15-37) U/L ALT (14-59) U/L Alkaline Phosphatase (46-116) U/L Troponin I (0.00-0.056) ng/mL C-Reactive Protein (<1.0) mg/dL NT-Pro-B Natriuret Pep 61826 H (0-450) pg/mL Total Protein (6.4-8.2) g/dl Albumin (3.4-5.0) g/dl Globulin gm/dL Albumin/Globulin Ratio (1-2) TSH 3rd Generation 2.897 (0.358-3.74) uIU/mL Urine Color Yellow (Yellow) Urine Appearance Slt cloudy H (Clear) Urine pH 6.0 (5.0-8.0) Ur Specific [place] 1.020 (1.005-1.030) Urine Protein 1+ H (Negative) Urine Glucose (UA) Negative (Negative) Urine Ketones Negative (Negative) Urine Occult Blood Negative (Negative) Urine Nitrite Negative (Negative) Urine Bilirubin Negative (Negative) Urine Urobilinogen 0.2 (0.2-1.0) Ur Leukocyte Esterase Negative (Negative) Urine RBC Not seen (0-5) /hpf Urine WBC 0-5 (0-5) /hpf Ur Epithelial Cells Not seen (0-5) /hpf Amorphous Sediment Many H (NOT SEEN) /hpf Urine Bacteria Few (FEW) /hpf Hyaline Casts 0-5 (0-5) /lpf Urine Mucus Not seen (FEW) /hpf MRSA (PCR) 07/14/17 Range/Units 17:45 WBC (3.98-10.04) K/mm3 RBC (3.98-5.22) M/mm3 Hgb (11.2-15.7) gm/L Hct (34.1-44.9) % MCV (79.4-94.8) fl MCH (25.6-32.2) pg MCHC (32.2-35.5) g/dl RDW Std Deviation (36.4-46.3) fL Plt Count (182-369) K/mm3 MPV (9.4-12.3) fl Neutrophils % (Manual) (40-60) % Band Neutrophils % (0-10) % Lymphocytes % (Manual) (20-40) % Atypical Lymphs % % Monocytes % (Manual) (2-10) % Eosinophils % (Manual) (0.7-5.8) % Basophils % (Manual) (0.1-1.2) Platelet Estimate Plt Morphology Comment Hypochromasia Poikilocytosis Anisocytosis Microcytosis Macrocytosis Tear Drop Cells RBC Morph Comment D-Dimer, Quantitative (0.19-0.50) mg/L Sodium (136-145) mEq/L Potassium (3.5-5.1) mEq/L Chloride (98-107) mEq/L Carbon Dioxide (21-32) mEq/L Anion Gap (5-15) BUN (7-18) mg/dL Creatinine (0.55-1.02) mg/dL Est Cr Clr Drug Dosing mL/min Estimated GFR (MDRD) (>60) mL/min BUN/Creatinine Ratio (14-18) Glucose (83-115) mg/dL Calcium (8.5-10.1) mg/dL Magnesium (1.8-2.4) mg/dl Total Bilirubin (0.2-1.0) mg/dL AST (15-37) U/L ALT (14-59) U/L Alkaline Phosphatase (46-116) U/L Troponin I (0.00-0.056) ng/mL C-Reactive Protein (<1.0) mg/dL NT-Pro-B Natriuret Pep (0-450) pg/mL Total Protein (6.4-8.2) g/dl Albumin (3.4-5.0) g/dl Globulin gm/dL Albumin/Globulin Ratio (1-2) TSH 3rd Generation (0.358-3.74) uIU/mL Urine Color (Yellow) Urine Appearance (Clear) Urine pH (5.0-8.0) Ur Specific [place] (1.005-1.030) Urine Protein (Negative) Urine Glucose (UA) (Negative) Urine Ketones (Negative) Urine Occult Blood (Negative) Urine Nitrite (Negative) Urine Bilirubin (Negative) Urine Urobilinogen (0.2-1.0) Ur Leukocyte Esterase (Negative) Urine RBC (0-5) /hpf Urine WBC (0-5) /hpf Ur Epithelial Cells (0-5) /hpf Amorphous Sediment (NOT SEEN) /hpf Urine Bacteria (FEW) /hpf Hyaline Casts (0-5) /lpf Urine Mucus (FEW) /hpf MRSA (PCR) Negative Med Orders - Current: Current Medications Acetaminophen (Tylenol) 650 mg PO Q4H PRN PRN Reason: Pain (Mild 1-3)/fever Hydrocodone Bitart/Acetaminophen ([place] 325-5 Mg) 1 tab PO Q4H PRN PRN Reason: Pain (moderate 4-6) Albuterol/Ipratropium (Duoneb 3.0-0.5 Mg/3 Ml) 3 ml NEB Q4H PRN PRN Reason: Shortness Of Breath/wheezing Amlodipine Besylate (Norvasc) 10 mg PO DAILY [facility] Benzonatate (Tessalon Perles) 200 mg PO TID PRN PRN Reason: Cough Bisacodyl (Dulcolax) 5 mg PO DAILY PRN PRN Reason: Constipation Docusate Sodium (Colace) 100 mg PO BID PRN PRN Reason: Constipation Dronabinol (Marinol) 2.5 mg PO TID [facility] Last Admin: 07/14/17 21:05 Dose: Not Given Ergocalciferol (Vitamin D2) 50,000 units PO Q7D@0900 [facility] Last Admin: 07/14/17 16:52 Dose: Not Given Promethazine HCl 6.25 mg/ (Sodium Chloride) 50.25 mls @ 100 mls/hr IV Q6H PRN PRN Reason: Nausea/Vomiting Levofloxacin (Levaquin) 750 mg PO Q48H [facility] Last Admin: 07/14/17 17:27 Dose: 750 mg Lorazepam (Ativan) 0.5 mg IV Q6H PRN PRN Reason: Anxiety Magnesium Oxide (Magnesium Oxide) 400 mg PO BID [facility] Last Admin: 07/14/17 21:05 Dose: Not Given Mirtazapine (Remeron) 45 mg PO BEDTIME [facility] Last Admin: 07/14/17 21:05 Dose: Not Given Morphine Sulfate (Morphine) 0.5 mg IVPUSH Q2H PRN PRN Reason: Pain (severe 7-10) Stop: 07/15/17 15:38 Omeprazole (Omeprazole) 20 mg PO BIDAC [facility] Last Admin: 07/15/17 05:15 Dose: Not Given Ondansetron HCl (Zofran) 4 mg IV Q6H PRN PRN Reason: Nausea/Vomiting Polyethylene Glycol (Miralax) 17 gm PO DAILY PRN PRN Reason: Constipation Potassium Chloride (Klor-Con 10) 10 meq PO DAILY [facility] Senna/Docusate Sodium (Senna Plus) 1 tab PO BID PRN PRN Reason: Constipation Temazepam (Restoril) 7.5 mg PO BEDTIME PRN PRN Reason: Sleep Thiamine HCl (Vitamin B-1) 100 mg PO BEDTIME [facility] Last Admin: 07/14/17 21:05 Dose: Not Given Discontinued Medications Furosemide (Lasix) 60 mg IVPUSH NOW ONE Stop: 07/14/17 13:49 Last Admin: 07/14/17 14:05 Dose: 60 mg Sodium Chloride (Normal Saline) 500 mls @ 999 mls/hr IV .BOLUS ONE Stop: 07/14/17 13:18 Last Admin: 07/14/17 13:00 Dose: 999 mls/hr Ceftriaxone Sodium 1 gm/ (Sodium Chloride) 100 mls @ 200 mls/hr IV ONETIME ONE Stop: 07/14/17 14:22 Last Admin: 07/14/17 14:05 Dose: Not Given - Exam General: Alert, Cooperative, No Acute Distress HEENT: Pupils Equal, Pupils Reactive, Mucous Membr. Moist/[place] Neck: Supple, Trachea Midline Lungs: Normal Respiratory Effort, Decreased Breath Sounds Cardiovascular: Regular Rate, Regular Rhythm GI/Abdominal Exam: Normal Bowel Sounds, Soft, Non-Tender, No Organomegaly, No Distention, No Abnormal Bruit (Female) Exam: Deferred Back Exam: Normal Inspection Extremities: Normal Inspection, Normal Range of Motion, Non-Tender, No Pedal Edema, Normal Capillary Refill Peripheral Pulses: 2+: Dorsalis Pedis (L), Dorsalis Pedis (R) Skin: Warm, Dry, Intact Neurological: No New Focal Deficit Psy/Mental Status: Alert, Normal Affect, Normal Mood - Problem List Review Problem List Initiated/Reviewed/Updated: Yes - My Orders Last 24 Hours: My Active Orders 07/14/17 15:33 Consult to Case Management [CONS] Routine Consult to Rn Community [facility] [CONS] Routine Consult to Spiritual Care [CONS] Routine OT Evaluation and Treatment [CONS] Routine PT Evaluation and Treatment [CONS] Routine Acetaminophen/HYDROcodone [[place] 325-5 MG] 1 tab PO Q4H PRN Albuterol/Ipratropium [DuoNeb 3.0-0.5 MG/3 ML] 3 ml NEB Q4H PRN Bisacodyl [Dulcolax] 5 mg PO DAILY PRN Docusate Sodium [Colace] 100 mg PO BID PRN Docusate Sodium/Sennosides [Senna Plus] 1 tab PO BID PRN LORazepam [Ativan] 0.5 mg IV Q6H PRN Morphine 0.5 mg IVPUSH Q2H PRN Ondansetron [Zofran] 4 mg IV Q6H PRN Polyethylene Glycol 3350 [MiraLAX] 17 gm PO DAILY PRN Promethazine [Phenergan] 6.25 mg Sodium Chloride 0.9% [Normal Saline] 50 ml IV Q6H Temazepam [Restoril] 7.5 mg PO BEDTIME PRN Resuscitation Status Routine 07/14/17 15:37 VTE/DVT Education [RC] 10,22 Vital Signs [RC] QSHIFT Sequential Compression Device [OM.PC] Per Unit Routine 07/14/17 15:39 RT Aerosol Therapy [RC] ASDIRECTED 07/14/17 15:40 Acetaminophen [Tylenol] 650 mg PO Q4H PRN Benzonatate [Tessalon Perles] 200 mg PO TID PRN Dronabinol [Marinol] 2.5 mg PO TID 07/14/17 15:41 Consult to Dietary [Consult to Senior Java Developer] [CONS] Routine Consult to End of Life Care [Consult to Palliative Care] [CONS] Routine 07/14/17 16:00 Ergocalciferol (Vitamin D2) [Vitamin D2] 50,000 units PO Q7D@0900 Levofloxacin [Levaquin] 750 mg PO Q48H Omeprazole 20 mg PO BIDAC 07/14/17 21:00 Magnesium Oxide 400 mg PO BID Mirtazapine [Remeron] 45 mg PO BEDTIME Thiamine [Vitamin B-1] 100 mg PO BEDTIME 07/14/17 Dinner Regular Diet [DIET] 07/15/17 09:00 Potassium Chloride [Klor-Con 10] 10 meq PO DAILY amLODIPine [Norvasc] 10 mg PO DAILY - Plan Plan:: Assessment/Plan: Acute: Failure To Thrive/Loss of Will to Live - Poor appetite and has been expressing wishes to go for the past 3 months per DPOA (nephew) - She is on Remeron and Marinol but refused to take it - Dietary consult for nutritional assessment End of Life Care - Palliative Care/Comfort Measures Only - DPOA wants comfort measures - Her brother says "they thought she may go at [place]" - Conservative management only - Hospice Consult - Spiritual Care Consult CAP - WBC 16.43; CRP 19.5 - CXR opacification on right base - Oral antibiotic po daily; avoid IV Acute on CKD - GFR is stage 3; she is at Stage 4 - IV fluids for hydration [place]vated [place] [address] - Considerable peripheral edema - PRN diuretic Elevated D-Dimer - D-Dimer > 35 - Cannot r/o DVT/PE - Avoid Chest CTA due to ALEJA - No aggressive treatment/tests per DPOA Chronic: Impaired Vision HTN HLD Hx/o PUD CKD Stage 3 Osteoporosis Memory Impairment/Confusion Plan: She remains comfortable Continue Conservative Management only per DPOA PRN Meds only Discontinue Daily Home Meds and Routine Vitals check No Daily Labs She can eat whatever she wants Cancel PT/OT consult DVT PPx: SCDs; Lovenox sub CI 2/2 significantly reduced renal function SW/CM for d/c planning Code status: DNR/DNI/Comfort Measures D/c pending placement
[2017-07-15] MEDS ORDERED: Pantoprazole 40 MG Tab.CR PO SCH (07:15)
[2017-07-15] MEDS ORDERED: Dronabinol 2.5 MG Cap PO SCH (07:15)
[2017-07-15] MEDS ORDERED: Potassium Chloride 10 MEQ Tab.ER PO SCH (09:00)
[2017-07-15] MEDS ORDERED: Cholecalciferol (Vitamin D3) 1,000 Unit Tab PO SCH (09:00)
[2017-07-15] MEDS ORDERED: amLODIPine 10 MG Tab PO SCH (09:00)
[2017-07-15] MEDS: Magnesium Oxide 400 MG Tab PO SCH (10:52)
--- NOTE | 2017-07-16 12:31 | PCM.PN ---
- General Info Date of Service: 07/16/17 Functional Status: Reports: Pain Controlled - Review of Systems General: Reports: Weakness HEENT: Reports: No Symptoms Pulmonary: Reports: No Symptoms Cardiovascular: Reports: No Symptoms Gastrointestinal: Reports: No Symptoms Genitourinary: Reports: No Symptoms Musculoskeletal: Reports: No Symptoms Skin: Reports: No Symptoms Neurological: Reports: No Symptoms Psychiatric: Reports: No Symptoms - Patient Data Vitals - Most Recent: Last Vital Signs Temp 36.3 C 07/14/17 20:47 Pulse 88 07/14/17 20:47 Resp 20 07/14/17 20:47 BP 138/94 H 07/14/17 20:47 Pulse Ox 91 L 07/15/17 19:56 Weight - Most Recent: 66.361 kg I&O - Last 24 Hours: Intake & Output 07/15/17 07/16/17 07/16/17 22:59 06:59 14:59 Intake Total 150 25 Output Total 0 Balance 150 25 Med Orders - Current: Current Medications Acetaminophen (Tylenol) 650 mg PO Q4H PRN PRN Reason: Pain (Mild 1-3)/fever Hydrocodone Bitart/Acetaminophen ([place] 325-5 Mg) 1 tab PO Q4H PRN PRN Reason: Pain (moderate 4-6) Albuterol/Ipratropium (Duoneb 3.0-0.5 Mg/3 Ml) 3 ml NEB Q4H PRN PRN Reason: Shortness Of Breath/wheezing Benzonatate (Tessalon Perles) 200 mg PO TID PRN PRN Reason: Cough Docusate Sodium (Colace) 100 mg PO BID PRN PRN Reason: Constipation Promethazine HCl 6.25 mg/ (Sodium Chloride) 50.25 mls @ 100 mls/hr IV Q6H PRN PRN Reason: Nausea/Vomiting Lorazepam (Ativan) 0.5 mg IV Q6H PRN PRN Reason: Anxiety Ondansetron HCl (Zofran) 4 mg IV Q6H PRN PRN Reason: Nausea/Vomiting Polyethylene Glycol (Miralax) 17 gm PO DAILY PRN PRN Reason: Constipation Senna/Docusate Sodium (Senna Plus) 1 tab PO BID PRN PRN Reason: Constipation Temazepam (Restoril) 7.5 mg PO BEDTIME PRN PRN Reason: Sleep Discontinued Medications Amlodipine Besylate (Norvasc) 10 mg PO DAILY [facility] Last Admin: 07/15/17 10:54 Dose: Not Given Bisacodyl (Dulcolax) 5 mg PO DAILY PRN PRN Reason: Constipation Cholecalciferol (Vitamin D3) 2,000 units PO DAILY [facility] Last Admin: 07/15/17 10:54 Dose: Not Given Dronabinol (Marinol) 2.5 mg PO TID [facility] Last Admin: 07/14/17 21:05 Dose: Not Given Ergocalciferol (Vitamin D2) 50,000 units PO Q7D@0900 [facility] Last Admin: 07/14/17 16:52 Dose: Not Given Furosemide (Lasix) 60 mg IVPUSH NOW ONE Stop: 07/14/17 13:49 Last Admin: 07/14/17 14:05 Dose: 60 mg Sodium Chloride (Normal Saline) 500 mls @ 999 mls/hr IV .BOLUS ONE Stop: 07/14/17 13:18 Last Admin: 07/14/17 13:00 Dose: 999 mls/hr Ceftriaxone Sodium 1 gm/ (Sodium Chloride) 100 mls @ 200 mls/hr IV ONETIME ONE Stop: 07/14/17 14:22 Last Admin: 07/14/17 14:05 Dose: Not Given Levofloxacin (Levaquin) 750 mg PO Q48H [facility] Last Admin: 07/14/17 17:27 Dose: 750 mg Magnesium Oxide (Magnesium Oxide) 400 mg PO BID [facility] Last Admin: 07/15/17 10:52 Dose: Not Given Mirtazapine (Remeron) 45 mg PO BEDTIME [facility] Last Admin: 07/14/17 21:05 Dose: Not Given Morphine Sulfate (Morphine) 0.5 mg IVPUSH Q2H PRN PRN Reason: Pain (severe 7-10) Stop: 07/15/17 15:38 Omeprazole (Omeprazole) 20 mg PO BIDAC [facility] Last Admin: 07/15/17 05:15 Dose: Not Given Pantoprazole Sodium (Protonix) 40 mg PO BIDMEALS [facility] Last Admin: 07/15/17 10:52 Dose: Not Given Potassium Chloride (Klor-Con 10) 10 meq PO DAILY [facility] Last Admin: 07/15/17 10:52 Dose: Not Given Thiamine HCl (Vitamin B-1) 100 mg PO BEDTIME [facility] Last Admin: 07/14/17 21:05 Dose: Not Given - Exam Quality Assessment: DVT Prophylaxis General: Alert, Oriented, Cooperative, No Acute Distress HEENT: Pupils Equal, Pupils Reactive, EOMI Neck: Trachea Midline, No JVD Lungs: Normal Respiratory Effort Cardiovascular: Regular Rate GI/Abdominal Exam: Normal Bowel Sounds, Soft, Non-Tender, No Organomegaly, No Distention (Female) Exam: Deferred Back Exam: Normal Inspection Extremities: Normal Inspection Skin: Warm Neurological: No New Focal Deficit Psy/Mental Status: Alert - Problem List Review Problem List Initiated/Reviewed/Updated: Yes - Plan Plan:: Assessment/Plan: Acute: Failure To Thrive/Loss of Will to Live - Poor appetite and has been expressing wishes to go for the past 3 months per DPOA (nephew) - She is on Remeron and Marinol but refused to take it - Dietary consult for nutritional assessment End of Life Care - Palliative Care/Comfort Measures Only - DPOA wants comfort measures - Her brother says "they thought she may go at [place]" - Conservative management only - Hospice Consult - Spiritual Care Consult CAP - WBC 16.43; CRP 19.5 - CXR opacification on right base - Oral antibiotic po daily; avoid IV Acute on CKD - GFR is stage 3; she is at Stage 4 - IV fluids for hydration [place]vated [place] [address] - Considerable peripheral edema - PRN diuretic Elevated D-Dimer - D-Dimer > 35 - Cannot r/o DVT/PE - Avoid Chest CTA due to ALEJA - No aggressive treatment/tests per DPOA Chronic: Impaired Vision HTN HLD Hx/o PUD CKD Stage 3 Osteoporosis Memory Impairment/Confusion Plan: She remains comfortable Continue Conservative Management only per DPOA PRN Meds only Discontinue Daily Home Meds and Routine Vitals check No Daily Labs She can eat whatever she wants Cancel PT/OT consult DVT PPx: SCDs; Lovenox sub CI 2/2 significantly reduced renal function SW/CM for d/c planning Code status: DNR/DNI/Comfort Measures D/c pending placement-->LOS>96 hours for placement; continue comfort care.
--- NOTE | 2017-07-17 15:35 | PCM.PN ---
- General Info Date of Service: 07/17/17 Functional Status: Reports: Pain Controlled - Review of Systems General: Reports: No Symptoms HEENT: Reports: No Symptoms Pulmonary: Reports: No Symptoms Cardiovascular: Reports: No Symptoms Gastrointestinal: Reports: No Symptoms Genitourinary: Reports: No Symptoms Musculoskeletal: Reports: No Symptoms Skin: Reports: No Symptoms Neurological: Reports: No Symptoms Psychiatric: Reports: No Symptoms - Patient Data Vitals - Most Recent: Last Vital Signs Temp 36.3 C 07/14/17 20:47 Pulse 88 07/14/17 20:47 Resp 20 07/14/17 20:47 BP 138/94 H 07/14/17 20:47 Pulse Ox 91 L 07/15/17 19:56 Weight - Most Recent: 66.361 kg I&O - Last 24 Hours: Intake & Output 07/17/17 07/17/17 07/17/17 06:59 14:59 22:59 Intake Total 50 340 Balance 50 340 Med Orders - Current: Current Medications Acetaminophen (Tylenol) 650 mg PO Q4H PRN PRN Reason: Pain (Mild 1-3)/fever Hydrocodone Bitart/Acetaminophen ([place] 325-5 Mg) 1 tab PO Q4H PRN PRN Reason: Pain (moderate 4-6) Albuterol/Ipratropium (Duoneb 3.0-0.5 Mg/3 Ml) 3 ml NEB Q4H PRN PRN Reason: Shortness Of Breath/wheezing Benzonatate (Tessalon Perles) 200 mg PO TID PRN PRN Reason: Cough Docusate Sodium (Colace) 100 mg PO BID PRN PRN Reason: Constipation Promethazine HCl 6.25 mg/ (Sodium Chloride) 50.25 mls @ 100 mls/hr IV Q6H PRN PRN Reason: Nausea/Vomiting Lorazepam (Ativan) 0.5 mg IV Q6H PRN PRN Reason: Anxiety Ondansetron HCl (Zofran) 4 mg IV Q6H PRN PRN Reason: Nausea/Vomiting Polyethylene Glycol (Miralax) 17 gm PO DAILY PRN PRN Reason: Constipation Senna/Docusate Sodium (Senna Plus) 1 tab PO BID PRN PRN Reason: Constipation Temazepam (Restoril) 7.5 mg PO BEDTIME PRN PRN Reason: Sleep Discontinued Medications Amlodipine Besylate (Norvasc) 10 mg PO DAILY [facility] Last Admin: 07/15/17 10:54 Dose: Not Given Bisacodyl (Dulcolax) 5 mg PO DAILY PRN PRN Reason: Constipation Cholecalciferol (Vitamin D3) 2,000 units PO DAILY [facility] Last Admin: 07/15/17 10:54 Dose: Not Given Dronabinol (Marinol) 2.5 mg PO TID [facility] Last Admin: 07/14/17 21:05 Dose: Not Given Ergocalciferol (Vitamin D2) 50,000 units PO Q7D@0900 [facility] Last Admin: 07/14/17 16:52 Dose: Not Given Furosemide (Lasix) 60 mg IVPUSH NOW ONE Stop: 07/14/17 13:49 Last Admin: 07/14/17 14:05 Dose: 60 mg Sodium Chloride (Normal Saline) 500 mls @ 999 mls/hr IV .BOLUS ONE Stop: 07/14/17 13:18 Last Admin: 07/14/17 13:00 Dose: 999 mls/hr Ceftriaxone Sodium 1 gm/ (Sodium Chloride) 100 mls @ 200 mls/hr IV ONETIME ONE Stop: 07/14/17 14:22 Last Admin: 07/14/17 14:05 Dose: Not Given Levofloxacin (Levaquin) 750 mg PO Q48H [facility] Last Admin: 07/14/17 17:27 Dose: 750 mg Magnesium Oxide (Magnesium Oxide) 400 mg PO BID [facility] Last Admin: 07/15/17 10:52 Dose: Not Given Mirtazapine (Remeron) 45 mg PO BEDTIME [facility] Last Admin: 07/14/17 21:05 Dose: Not Given Morphine Sulfate (Morphine) 0.5 mg IVPUSH Q2H PRN PRN Reason: Pain (severe 7-10) Stop: 07/15/17 15:38 Omeprazole (Omeprazole) 20 mg PO BIDAC [facility] Last Admin: 07/15/17 05:15 Dose: Not Given Pantoprazole Sodium (Protonix) 40 mg PO BIDMEALS [facility] Last Admin: 07/15/17 10:52 Dose: Not Given Potassium Chloride (Klor-Con 10) 10 meq PO DAILY [facility] Last Admin: 07/15/17 10:52 Dose: Not Given Thiamine HCl (Vitamin B-1) 100 mg PO BEDTIME [facility] Last Admin: 07/14/17 21:05 Dose: Not Given - Exam Quality Assessment: DVT Prophylaxis General: No Acute Distress HEENT: Pupils Equal, Pupils Reactive Neck: Supple, Trachea Midline Lungs: Normal Respiratory Effort, Decreased Breath Sounds Cardiovascular: Regular Rate GI/Abdominal Exam: Normal Bowel Sounds, Soft, Non-Tender, No Organomegaly, No Distention (Female) Exam: Deferred Extremities: Normal Inspection Skin: Warm Neurological: No New Focal Deficit Psy/Mental Status: Alert - Problem List Review Problem List Initiated/Reviewed/Updated: Yes - Plan Plan:: Assessment/Plan: Acute: Failure To Thrive/Loss of Will to Live - Poor appetite and has been expressing wishes to go for the past 3 months per DPOA (nephew) - She is on Remeron and Marinol but refused to take it - Dietary consult for nutritional assessment End of Life Care - Palliative Care/Comfort Measures Only - DPOA wants comfort measures - Her brother says "they thought she may go at [place]" - Conservative management only - Hospice Consult - Spiritual Care Consult CAP - WBC 16.43; CRP 19.5 - CXR opacification on right base - Oral antibiotic po daily; avoid IV Acute on CKD - GFR is stage 3; she is at Stage 4 - IV fluids for hydration [place]vated [place] [address] - Considerable peripheral edema - PRN diuretic Elevated D-Dimer - D-Dimer > 35 - Cannot r/o DVT/PE - Avoid Chest CTA due to ALEJA - No aggressive treatment/tests per DPOA Chronic: Impaired Vision HTN HLD Hx/o PUD CKD Stage 3 Osteoporosis Memory Impairment/Confusion Plan: She remains comfortable Continue Conservative Management only per DPOA PRN Meds only Discontinue Daily Home Meds and Routine Vitals check No Daily Labs She can eat whatever she wants Cancel PT/OT consult DVT PPx: SCDs; Lovenox sub CI 2/2 significantly reduced renal function SW/CM for d/c planning Code status: DNR/DNI/Comfort Measures D/c pending placement-->LOS>96 hours for placement; continue comfort care.
--- NOTE | 2017-07-18 12:49 | PCM.PN ---
- General Info Date of Service: 07/18/17 Functional Status: Reports: Pain Controlled, Tolerating Diet - Review of Systems General: Reports: Weakness HEENT: Reports: No Symptoms Pulmonary: Reports: No Symptoms Cardiovascular: Reports: No Symptoms Gastrointestinal: Reports: No Symptoms Genitourinary: Reports: No Symptoms Musculoskeletal: Reports: No Symptoms Skin: Reports: No Symptoms Neurological: Reports: No Symptoms Psychiatric: Reports: No Symptoms - Patient Data Vitals - Most Recent: Last Vital Signs Temp 36.3 C 07/14/17 20:47 Pulse 88 07/14/17 20:47 Resp 20 07/14/17 20:47 BP 138/94 H 07/14/17 20:47 Pulse Ox 91 L 07/15/17 19:56 Weight - Most Recent: 66.361 kg I&O - Last 24 Hours: Intake & Output 07/17/17 07/18/17 07/18/17 22:59 06:59 14:59 Intake Total 610 100 0 Output Total 800 Balance -190 100 0 Med Orders - Current: Current Medications Acetaminophen (Tylenol) 650 mg PO Q4H PRN PRN Reason: Pain (Mild 1-3)/fever Hydrocodone Bitart/Acetaminophen ([place] 325-5 Mg) 1 tab PO Q4H PRN PRN Reason: Pain (moderate 4-6) Albuterol/Ipratropium (Duoneb 3.0-0.5 Mg/3 Ml) 3 ml NEB Q4H PRN PRN Reason: Shortness Of Breath/wheezing Benzonatate (Tessalon Perles) 200 mg PO TID PRN PRN Reason: Cough Docusate Sodium (Colace) 100 mg PO BID PRN PRN Reason: Constipation Promethazine HCl 6.25 mg/ (Sodium Chloride) 50.25 mls @ 100 mls/hr IV Q6H PRN PRN Reason: Nausea/Vomiting Lorazepam (Ativan) 0.5 mg IV Q6H PRN PRN Reason: Anxiety Ondansetron HCl (Zofran) 4 mg IV Q6H PRN PRN Reason: Nausea/Vomiting Polyethylene Glycol (Miralax) 17 gm PO DAILY PRN PRN Reason: Constipation Last Admin: 07/18/17 09:47 Dose: 17 gm Senna/Docusate Sodium (Senna Plus) 1 tab PO BID PRN PRN Reason: Constipation Temazepam (Restoril) 7.5 mg PO BEDTIME PRN PRN Reason: Sleep Discontinued Medications Amlodipine Besylate (Norvasc) 10 mg PO DAILY [facility] Last Admin: 07/15/17 10:54 Dose: Not Given Bisacodyl (Dulcolax) 5 mg PO DAILY PRN PRN Reason: Constipation Cholecalciferol (Vitamin D3) 2,000 units PO DAILY [facility] Last Admin: 07/15/17 10:54 Dose: Not Given Dronabinol (Marinol) 2.5 mg PO TID [facility] Last Admin: 07/14/17 21:05 Dose: Not Given Ergocalciferol (Vitamin D2) 50,000 units PO Q7D@0900 [facility] Last Admin: 07/14/17 16:52 Dose: Not Given Furosemide (Lasix) 60 mg IVPUSH NOW ONE Stop: 07/14/17 13:49 Last Admin: 07/14/17 14:05 Dose: 60 mg Sodium Chloride (Normal Saline) 500 mls @ 999 mls/hr IV .BOLUS ONE Stop: 07/14/17 13:18 Last Admin: 07/14/17 13:00 Dose: 999 mls/hr Ceftriaxone Sodium 1 gm/ (Sodium Chloride) 100 mls @ 200 mls/hr IV ONETIME ONE Stop: 07/14/17 14:22 Last Admin: 07/14/17 14:05 Dose: Not Given Levofloxacin (Levaquin) 750 mg PO Q48H [facility] Last Admin: 07/14/17 17:27 Dose: 750 mg Magnesium Oxide (Magnesium Oxide) 400 mg PO BID [facility] Last Admin: 07/15/17 10:52 Dose: Not Given Mirtazapine (Remeron) 45 mg PO BEDTIME [facility] Last Admin: 07/14/17 21:05 Dose: Not Given Morphine Sulfate (Morphine) 0.5 mg IVPUSH Q2H PRN PRN Reason: Pain (severe 7-10) Stop: 07/15/17 15:38 Omeprazole (Omeprazole) 20 mg PO BIDAC [facility] Last Admin: 07/15/17 05:15 Dose: Not Given Pantoprazole Sodium (Protonix) 40 mg PO BIDMEALS [facility] Last Admin: 07/15/17 10:52 Dose: Not Given Potassium Chloride (Klor-Con 10) 10 meq PO DAILY [facility] Last Admin: 07/15/17 10:52 Dose: Not Given Thiamine HCl (Vitamin B-1) 100 mg PO BEDTIME [facility] Last Admin: 07/14/17 21:05 Dose: Not Given - Exam Quality Assessment: DVT Prophylaxis General: Alert, Oriented, Cooperative, No Acute Distress HEENT: Pupils Equal, Pupils Reactive, EOMI Neck: Trachea Midline, No JVD Lungs: Normal Respiratory Effort Cardiovascular: Regular Rate, Regular Rhythm GI/Abdominal Exam: Normal Bowel Sounds, Soft, Non-Tender, No Organomegaly, No Distention (Female) Exam: Deferred Back Exam: Normal Inspection Extremities: Normal Inspection Skin: Warm Neurological: No New Focal Deficit Psy/Mental Status: Alert, Normal Affect, Normal Mood - Problem List Review Problem List Initiated/Reviewed/Updated: Yes - Plan Plan:: Assessment/Plan: Acute: Failure To Thrive/Loss of Will to Live - Poor appetite and has been expressing wishes to go for the past 3 months per DPOA (nephew) - She is on Remeron and Marinol but refused to take it - Dietary consult for nutritional assessment End of Life Care - Palliative Care/Comfort Measures Only - DPOA wants comfort measures - Her brother says "they thought she may go at [place]" - Conservative management only - Hospice Consult - Spiritual Care Consult CAP - WBC 16.43; CRP 19.5 - CXR opacification on right base - Oral antibiotic po daily; avoid IV Acute on CKD - GFR is stage 3; she is at Stage 4 - IV fluids for hydration [place]vated [place] [address] - Considerable peripheral edema - PRN diuretic Elevated D-Dimer - D-Dimer > 35 - Cannot r/o DVT/PE - Avoid Chest CTA due to ALEJA - No aggressive treatment/tests per DPOA Chronic: Impaired Vision HTN HLD Hx/o PUD CKD Stage 3 Osteoporosis Memory Impairment/Confusion Plan: She remains comfortable Continue Conservative Management only per DPOA PRN Meds only Discontinue Daily Home Meds and Routine Vitals check No Daily Labs She can eat whatever she wants Cancel PT/OT consult DVT PPx: SCDs; Lovenox sub CI 2/2 significantly reduced renal function SW/CM for d/c planning Code status: DNR/DNI/Comfort Measures D/c pending placement-->LOS>96 hours for placement; continue comfort care.
--- NOTE | 2017-07-19 09:04 | PCM.DCSUM1 ---
Discharge Summary - Hospital Course HPI Initial Comments: This is an 87 year old elderly white female with past medical history of Impaired Vision, HTN, HLD, Hx/o PUD, CKD Stage 3, Osteoporosis, and Memory Impairment/Confusion was brought in from [facility] for evaluation of breast unresponsiveness. Patient is alert and awake but poor historian. History of present illness is very limited. However after discussion with her DPOA (nephew), patient has not been doing well for the past 3 months. He states, "she has been giving up". Patient has poor intake and has been mostly bed-bound. Her brother who is known to the hospitalist service, states that they thought "she is going to pass away at [facility]". When asked why she is here in the hospital, patient was not able to provide an appropriate answer. Her initial workup in emergency department shows a CBC remarkable for WBC of 16.43, hematocrit of 47.8, MCHC of 30.8, RDW of 56.6, neutrophils of 72%, lymphocytes of 12%, and monocytes of 12%. Her d-dimer is greater than 35.20. Her chemistry is remarkable for chloride of 111, carbon dioxide of 17, anion gap 22, BUN of 33, creatinine of 2, glucose of 233, AST of 55, alkaline phosphatase of 505, initial troponin of 0.07, CRP of 19.5, proBNP of 11,418, and albumin of 2.4. Her UA is not suggestive for UTI. Her chest x-ray shows opacification in the right lung base.. Patient is being admitted for end-of-life care per DPOA's request. She is DNR/ DNI comfort measures. - Discharge Data Discharge Date: 07/19/17 (Admit date: 07/14/17) Discharge Disposition: DC/Tfer to SNF 03 Condition: Poor - Discharge Diagnosis/Problem(s) (1) Admission for end of life care SNOMED Code(s): 633580909 ICD Code: Z51.5 - ENCOUNTER FOR PALLIATIVE CARE Status: Acute Priority: High Current Visit: Yes (2) Chronic renal insufficiency, stage III (moderate) SNOMED Code(s): 653026008 ICD Code: N18.3 - CHRONIC KIDNEY DISEASE, STAGE 3 (MODERATE) Status: Acute Priority: High Current Visit: Yes (3) Cough SNOMED Code(s): 85097480 ICD Code: R05 - COUGH Status: Acute Priority: High Current Visit: Yes (4) Dehydration SNOMED Code(s): 72993566 ICD Code: E86.0 - DEHYDRATION Status: Acute Priority: High Current Visit: Yes (5) Elevated brain natriuretic peptide (BNP) level SNOMED Code(s): 889597199, 965554721 ICD Code: R79.89 - OTHER SPECIFIED ABNORMAL FINDINGS OF BLOOD CHEMISTRY Status: Acute Priority: High Current Visit: Yes (6) Elevated d-dimer SNOMED Code(s): 858713876 ICD Code: R79.89 - OTHER SPECIFIED ABNORMAL FINDINGS OF BLOOD CHEMISTRY Status: Acute Priority: High Current Visit: Yes (7) Failure to thrive in adult SNOMED Code(s): 692265294 ICD Code: R62.7 - ADULT FAILURE TO THRIVE Status: Acute Priority: High Current Visit: Yes - Patient Summary/Data Consults: Consultations 07/14/17 15:33 Consult to Case Management [CONS] Routine Consult to Post Anesthesia Room Nurse [CONS] Routine Consult to Spiritual Care [CONS] Routine 07/14/17 15:41 Consult to Dietary [Consult to Highway Painter] [CONS] Routine Consult to End of Life Care [Consult to Palliative Care] [CONS] Routine Labs Pending at D/C: none Hospital Course: Assessment/Plan: Acute: Failure To Thrive/Loss of Will to Live - Poor appetite and has been expressing wishes to go for the past 3 months per DPOA (nephew) - She is on Remeron and Marinol but refused to take it - Dietary consult for nutritional assessment End of Life Care - Palliative Care/Comfort Measures Only - DPOA wants comfort measures - Her brother says "they thought she may go at [place]" - Conservative management only - Hospice Consult - Spiritual Care Consult CAP - WBC 16.43; CRP 19.5 - CXR opacification on right base - Oral antibiotic po daily; avoid IV Acute on CKD - GFR is stage 3; she is at Stage 4 - IV fluids for hydration [place]vated [place] [address] - Considerable peripheral edema - PRN diuretic Elevated D-Dimer - D-Dimer > 35 - Cannot r/o DVT/PE - Avoid Chest CTA due to ALEJA - No aggressive treatment/tests per DPOA Chronic: Impaired Vision HTN HLD Hx/o PUD CKD Stage 3 Osteoporosis Memory Impairment/Confusion Plan: She remains comfortable Continue Conservative Management only per DPOA PRN Meds only Discontinue Daily Home Meds and Routine Vitals check No Daily Labs She can eat whatever she wants Cancel PT/OT consult DVT PPx: SCDs; Lovenox sub CI 2/2 significantly reduced renal function SW/CM for d/c planning Code status: DNR/DNI/Comfort Measures D/c pending placement-->LOS>96 hours for placement; continue comfort care. Margaret will be discharged to [facility] today for comfort care. Due to her weakness and inability to ambulate or sit in a chair she will be transported via ambulance. Her medications have been trimmed to only those to keep her comfortable. stoneworker Jenn has been making arrangements for the patient and her family. - Patient Instructions Diet: Regular Diet as Tolerated Activity: As Tolerated Driving: Do Not Drive Notify Provider of: Increased Pain, Nausea and/or Vomiting - Discharge Plan Home Medications: Home Meds Benzonatate [Tessalon Perle] 200 mg PO TID PRN 04/17/17 [History] Acetaminophen [Tylenol] 650 mg PO Q4H PRN tablet 04/22/17 [Rx] Forms: ED Department Discharge Referrals: Lopez Sauceda MD [Primary Care Provider] - - Discharge Summary/Plan Comment DC Time >30 min.: Yes (40 mins ) - General Info Date of Service: 07/19/17 Admission Dx/Problem (Free Text: Admission Diagnosis/Problem Admission Diagnosis/Problem Palliative care Subjective Update: In to see Margaret. Nursing is at bedside examining patient. Patient does not communicate much but does states she is comfortable and not in any pain. She appears to be in no distress. Nursing has no concerns. She will be discharged to [facility] for comfort care today. Functional Status: Reports: Pain Controlled, Urinating. Denies: Ambulating, New Symptoms - Review of Systems General: Reports: Weakness, Fatigue, Malaise. Denies: Fever HEENT: Reports: No Symptoms Pulmonary: Reports: No Symptoms. Denies: Shortness of Breath, Sputum, Wheezing Cardiovascular: Reports: No Symptoms. Denies: Chest Pain Gastrointestinal: Reports: No Symptoms Genitourinary: Reports: No Symptoms Musculoskeletal: Reports: No Symptoms Skin: Reports: No Symptoms Neurological: Reports: No Symptoms Psychiatric: Reports: No Symptoms - Patient Data Vitals - Most Recent: Last Vital Signs Temp 97.7 F 07/18/17 19:19 Pulse 88 07/18/17 19:19 Resp 16 07/15/17 09:00 BP 104/67 07/18/17 19:19 Pulse Ox 95 07/18/17 19:19 Weight - Most Recent: 146 lb 4.8 oz I&O - Last 24 hours: Intake & Output 07/18/17 07/19/17 07/19/17 22:59 06:59 14:59 Intake Total 660 100 Balance 660 100 Med Orders - Current: Current Medications Acetaminophen (Tylenol) 650 mg PO Q4H PRN PRN Reason: Pain (Mild 1-3)/fever Hydrocodone Bitart/Acetaminophen ([place] 325-5 Mg) 1 tab PO Q4H PRN PRN Reason: Pain (moderate 4-6) Albuterol/Ipratropium (Duoneb 3.0-0.5 Mg/3 Ml) 3 ml NEB Q4H PRN PRN Reason: Shortness Of Breath/wheezing Benzonatate (Tessalon Perles) 200 mg PO TID PRN PRN Reason: Cough Docusate Sodium (Colace) 100 mg PO BID PRN PRN Reason: Constipation Promethazine HCl 6.25 mg/ (Sodium Chloride) 50.25 mls @ 100 mls/hr IV Q6H PRN PRN Reason: Nausea/Vomiting Lorazepam (Ativan) 0.5 mg IV Q6H PRN PRN Reason: Anxiety Ondansetron HCl (Zofran) 4 mg IV Q6H PRN PRN Reason: Nausea/Vomiting Polyethylene Glycol (Miralax) 17 gm PO DAILY PRN PRN Reason: Constipation Last Admin: 07/18/17 09:47 Dose: 17 gm Senna/Docusate Sodium (Senna Plus) 1 tab PO BID PRN PRN Reason: Constipation Temazepam (Restoril) 7.5 mg PO BEDTIME PRN PRN Reason: Sleep Discontinued Medications Amlodipine Besylate (Norvasc) 10 mg PO DAILY [facility] Last Admin: 07/15/17 10:54 Dose: Not Given Bisacodyl (Dulcolax) 5 mg PO DAILY PRN PRN Reason: Constipation Cholecalciferol (Vitamin D3) 2,000 units PO DAILY [facility] Last Admin: 07/15/17 10:54 Dose: Not Given Dronabinol (Marinol) 2.5 mg PO TID [facility] Last Admin: 07/14/17 21:05 Dose: Not Given Ergocalciferol (Vitamin D2) 50,000 units PO Q7D@0900 [facility] Last Admin: 07/14/17 16:52 Dose: Not Given Furosemide (Lasix) 60 mg IVPUSH NOW ONE Stop: 07/14/17 13:49 Last Admin: 07/14/17 14:05 Dose: 60 mg Sodium Chloride (Normal Saline) 500 mls @ 999 mls/hr IV .BOLUS ONE Stop: 07/14/17 13:18 Last Admin: 07/14/17 13:00 Dose: 999 mls/hr Ceftriaxone Sodium 1 gm/ (Sodium Chloride) 100 mls @ 200 mls/hr IV ONETIME ONE Stop: 07/14/17 14:22 Last Admin: 07/14/17 14:05 Dose: Not Given Levofloxacin (Levaquin) 750 mg PO Q48H [facility] Last Admin: 07/14/17 17:27 Dose: 750 mg Magnesium Oxide (Magnesium Oxide) 400 mg PO BID [facility] Last Admin: 07/15/17 10:52 Dose: Not Given Mirtazapine (Remeron) 45 mg PO BEDTIME [facility] Last Admin: 07/14/17 21:05 Dose: Not Given Morphine Sulfate (Morphine) 0.5 mg IVPUSH Q2H PRN PRN Reason: Pain (severe 7-10) Stop: 07/15/17 15:38 Omeprazole (Omeprazole) 20 mg PO BIDAC [facility] Last Admin: 07/15/17 05:15 Dose: Not Given Pantoprazole Sodium (Protonix) 40 mg PO BIDMEALS [facility] Last Admin: 07/15/17 10:52 Dose: Not Given Potassium Chloride (Klor-Con 10) 10 meq PO DAILY [facility] Last Admin: 07/15/17 10:52 Dose: Not Given Thiamine HCl (Vitamin B-1) 100 mg PO BEDTIME [facility] Last Admin: 07/14/17 21:05 Dose: Not Given - Exam Quality Assessment: Reports: Supplemental Oxygen, DVT Prophylaxis General: Reports: Alert, Cooperative, No Acute Distress HEENT: Reports: Pupils Equal, Pupils Reactive Neck: Reports: Supple Lungs: Reports: Clear to Auscultation, Normal Respiratory Effort Cardiovascular: Reports: Regular Rate, Regular Rhythm GI/Abdominal Exam: Soft, Non-Tender, Abnormal Bowel Sounds (hypoactive ) (Female) Exam: Deferred Rectal (Female) Exam: Deferred Extremities: Non-Tender, No Pedal Edema, Normal Capillary Refill, Other ( Discloration bilaterally from just below knees down. ) Skin: Reports: Warm, Dry, Intact Neurological: Reports: No New Focal Deficit Psy/Mental Status: Reports: Alert
== END 2017-07-19 11:38 | DRG 640 ==
LOC: JD.ED 12:00 → SUPCPDRO 12:00 → JD.MS 15:03
PROVIDERS: ADMIT Internal Medicine; ATTEND Internal Medicine
DX: R62.7 Adult failure to thrive (principal); J18.9 Pneumonia, unspecified organism; R06.02 Shortness of breath; R55 Syncope and collapse; I48.91 Unspecified atrial fibrillation; R06.2 Wheezing; R53.1 Weakness; K27.9 Peptic ulcer, site unspecified, unspecified as acute or chronic, without hemorrhage or perforation; N18.3 Chronic kidney disease, stage 3 (moderate); E55.9 Vitamin D deficiency, unspecified; F03.90 Unspecified dementia, unspecified severity, without behavioral disturbance, psychotic disturbance, mood disturbance, and anxiety; M81.0 Age-related osteoporosis without current pathological fracture; I12.9 Hypertensive chronic kidney disease with stage 1 through stage 4 chronic kidney disease, or unspecified chronic kidney disease; E78.00 Pure hypercholesterolemia, unspecified; D64.9 Anemia, unspecified; H54.7 Unspecified visual loss; R41.0 Disorientation, unspecified; Z51.5 Encounter for palliative care; Z90.710 Acquired absence of both cervix and uterus; Z79.899 Other long term (current) drug therapy; E78.5 Hyperlipidemia, unspecified; Z74.01 Bed confinement status; Z66 Do not resuscitate; R60.9 Edema, unspecified; N28.9 Disorder of kidney and ureter, unspecified; R79.1 Abnormal coagulation profile; E86.0 Dehydration; R79.89 Other specified abnormal findings of blood chemistry; R53.81 Other malaise; R53.83 Other fatigue
CPT/HCPCS: 36415; 71045; 80053; 81001; 83735; 83880; 84443; 84484; 85025; 85379; 86140; 93005; 96361; 96374; 99285; J1940; J7040; 87641; 93010; 97162-GP; 97167-GO; 97530-GO; 99222; 99231; 99239; 99284; A9270-GY